=== PATIENT | female | born 1930 | race Caucasian/White ===

== ENCOUNTER → 2018-05-10 | Outpatient (CLI) | payer OTHER ==
[~2018-05-10] MED LIST: ALPHAGAN P10 ML OP; AZOPT OPHTH1 %/10 M1 OP; AZOPT OPHTH1 %/10 M1 OPHTHALMIC; BUTORPHANOLNS2 NASAL; CEFUROXIME250 MG PO; CIPRO250 M1 PO; CIPROFLOXACIN500 M3 PO; COMBIGAN EYE DR10 ML OP; DICLOFENAC SODI75 MG PO; DIFLUCAN200 MG PO; FEMARA2.5 MG PO; FLAGYL500 MG PO; FLEXERIL PO; FOLIC ACID1 MG PO; GLYBURIDE 5 MG T5 M1 PO; HYDROCHLOROTHIA25 M1 PO; HYTRIN 5 M5 MG/1 CA1 PO; LETROZOLE2.5 MG PO; LODINE400 MG PO; LUMIGAN2.5 M1 OP; MACROBID 100 M100 M2 PO; ONDANSETRON HCL4 M2 PO; OXECTA7.5 MG PO; POTASSIUM99 M1 PO; PRINIVIL10 MG PO; PROLOPRIM100 MG PO; PROTONIX40 M1 PO; SIMVASTATIN20 MG PO; TIROSINT100 MCG PO; TRAMADOL 50 MG50 MG PO; TUMS PO; VITAMIN B PO; VITAMIN D1000 UNI1 PO; WOMEN'S DAILY1 EAC3 PO; [UNRECOGNIZED DRUG - OTHER] PO
[2018-05-10 11:40] VITALS: BP 130/55
[2018-05-10 12:45] VITALS: BP 129/56
--- NOTE | 2018-05-10 13:17 | NUR ---
ARRIVED AMBULATORY. MADE SELF COMFORTABLE IN RECLINER. WARM BLANKET GIVEN. IV STARTED WITH OUT DIFFICULTY. INFUSION COMPLETED AND TOLERATED WELL. VSS. DISCHARGE INSTRUCTION REVIEWED. ANGY QUESTIONS OR NEEDS AT DISCHARGE.
== END ==
LOC: M.INFUS 11:17
DX: N18.9 Chronic kidney disease, unspecified (principal); D63.1 Anemia in chronic kidney disease

== ENCOUNTER → 2018-05-17 | Outpatient (CLI) | payer OTHER ==
[2018-05-17 11:10] VITALS: BP 139/62
[2018-05-17 12:35] VITALS: BP 142/66
--- NOTE | 2018-05-17 12:44 | NUR ---
ARRIVED AMBULATORY. MADE SELF COMFORTABLE IN RECLINER. DENIES ADVERSE REACTION TO PRIOR INFUSION OF SAME. INFUSION COMPLETED AND TOLERATED WELL. DENIES NEEDS OR QUESTIONS AT DISCHARGE.
== END ==
LOC: M.INFUS 01:29
DX: N18.9 Chronic kidney disease, unspecified (principal); D63.1 Anemia in chronic kidney disease

== ENCOUNTER → 2018-05-31 | Outpatient (CLI) | payer OTHER ==
[2018-05-31 11:15] VITALS: BP 112/65
--- NOTE | 2018-05-31 13:34 | NUR ---
DENIES ADVERSE REACTION TO PRIOR INFUSION OF SAME. INFUSION COMPLETED AND TOLERATED WELL. DENIES NEEDS OR QUESTIONS AT DISCHARGE.
== END ==
LOC: M.INFUS 01:29
DX: N18.9 Chronic kidney disease, unspecified (principal); D63.1 Anemia in chronic kidney disease

== ENCOUNTER → 2018-06-07 | Outpatient (CLI) | payer OTHER ==
[2018-06-07 11:20] VITALS: BP 122/50
--- NOTE | 2018-06-07 12:52 | NUR ---
ARRIVED AMBULATORY WITH WALKER. MADE SELF COMFORTABLE IN RECLINER. DENIES ADVERSE REACTION TO MULTIPLE INFUSIONS OF SAME. INFUSION COMPLETED AND TOLERATED WELL. DENEIS NEEDS OR QUESTIONS AT DISCHARGE.
== END ==
LOC: M.INFUS 02:03
DX: N18.9 Chronic kidney disease, unspecified (principal); D63.1 Anemia in chronic kidney disease

== ENCOUNTER 2018-10-17 13:21 | Inpatient (IN) | payer OTHER ==
[~2018-10-17] VITALS: Ht 154.9 cm; Wt 78.9 kg
--- NOTE | ~2018-10-17 | OP ---
[address] [address] OPERATIVE REPORT Name: WENDIEALESSIA Zunilda Room: [address] IN M.R.#: [id number] Admission: 10/17/18 Attend Phys: Conchita Soares MD Discharge: 10/25/18 Date of : 34 Report #: [id number] THIS REPORT FOR: //name// CC: Blake Viveros MD DATE OF SERVICE: 10/20/2018 REFERRING PHYSICIANS: Dr. Blake Nazario and Dr. Conchita Soares. PREOPERATIVE DIAGNOSIS: Temporal headaches. POSTOPERATIVE DIAGNOSIS: Temporal headaches, pending final pathology. PROCEDURE: Bilateral temporal artery biopsy. SURGEON: Jose Acosta DO. SUPERVISOR PIPELINE MAINTENANCE: Dr. Dennis Pike. ANESTHESIA: Local with IV sedation. ESTIMATED BLOOD LOSS: Less than 10 mL. COMPLICATIONS: None. DESCRIPTION OF PROCEDURE: After obtaining proper consents and discussing risks and complications with the patient, she was taken to the operating room, laid on the supine position and administered IV sedation. She was then prepped and draped in the usual fashion starting with the left side for a temporal artery biopsy. We did use a Doppler ultrasound to identify the course of the temporal artery and blanc were placed with a marking pen. I then injected the area around these blanc with 1% lidocaine without epinephrine. I then made an approximately 4 cm long incision along the course of the temporal artery. I used needle tip cautery to dissect down through the subcutaneous tissues until I could visualize the artery. Once the artery was identified, it was dissected free. I then isolated proximal and distal ends which were by approximately 2 cm. I used a mosquito clamp to clamp proximally and distally and then divided and removed the 2 cm segment of the temporal artery. I then tied both ends using a 2-0 silk tie. We assured good hemostasis within the wound. We then closed the subcutaneous tissue using 3-0 Vicryl suture and the skin was closed using 4-0 Monocryl subcuticular stitch. Sterile Dermabond was then placed. We then changed the patient's position and reprepped and draped for the right side. Again, Doppler ultrasound was [place] [address] OPERATIVE REPORT Name: WENDIEALESSIA Room: [address]#: [id number] Admission: 10/17/18 Attend Phys: Conchita Soares MD Discharge: 10/25/18 Date of : 32 Report #: [id number] of the temporal artery and blanc were made using a marking pen. I then injected the area around these blanc with 1% lidocaine without epinephrine. I then made a skin incision with a #15 scalpel blade for a length of approximately 4 cm. I then used the needle tip cautery to dissect down to the level of the temporal artery. Once the artery was identified, it was completely dissected free for a length of approximately 2 cm. I then used a mosquito clamp to clamp the proximal and distal ends and then removed a 2 cm segment of artery. The proximal and distal ends were then suture ligated using 2-0 silk suture. We assured good hemostasis within the wound and then closed the subcutaneous tissue using 3-0 Vicryl suture. Skin was closed using 4-0 Monocryl subcuticular stitches. Mastisol, Steri-Strips, sterile OpSite and pressure dressings were placed. The patient was then awakened in the operating room and transported to recovery room in stable condition. Sponge, needle and instrument counts were all correct at the end of the procedure. By: [id number] Acosta DO /nt
[~2018-10-17 13:21] MED LIST changes: +CALCIUM 500 +1 EACH PO; -HYTRIN 5 M5 MG/1 CA1 PO; +TERAZOSIN HCL5 MG PO; -TUMS PO
[2018-10-17 13:36] VITALS: BP 154/70
[2018-10-17] MEDS ORDERED: IRON325 PO (13:40)
[2018-10-17] MEDS ORDERED: MYRBETRIQ25 MG PO (13:43)
[2018-10-17] MEDS ORDERED: LANTUS100 UNIT/M SUBQ (13:44)
[2018-10-17] MEDS ORDERED: PROCRIT3000 UNIT/ SUBQ (13:46)
[2018-10-17 14:10] LABS: INFLUENZA A ANTIGEN None Detected (None Detect); INFLUENZA B ANTIGEN None Detected (None Detect)
[2018-10-17 14:18] LABS: ABSOLUTE BASOPHILS 0.1 thou/uL (0.0-0.2); ABSOLUTE LYMPHOCYTES 2.1 thou/uL (0.8-5.3); ABSOLUTE MONOCYTES 0.8 thou/uL (0.0-1.2); ABSOLUTE NEUTROPHILS 7.7 thou/uL (1.6-8.1); BASOPHILS 1.1 %; EOSINOPHILS 0.3 %; HEMATOCRIT 29.5 % (37.0-47.0); HEMOGLOBIN 9.9 gm/dL (12.0-15.0); LYMPHOCYTES 19.7 %; MCH 30.2 pg (26.0-34.0); MCHC 33.4 g/dL (28.0-37.0); MCV 90.2 fL (80.0-100.0); MONOCYTES 7.4 %; MPV 7.5 fl. (7.2-11.1); NUCLEATED RBCS 0 /100WBC; PLATELET COUNT* 296 thou/uL (150-400); POLYS 71.5 %; RBC 3.27 mil/uL (4.20-5.00); RDW-CV 15.6 % (10.5-14.5); WBC 10.8 thou/uL (4.0-11.0)
[2018-10-17 14:29] LABS: APTT 28.7 Seconds (25.0-31.3)
[2018-10-17 14:53] LABS: ALBUMIN 2.6 g/dL (3.4-5.0); ALKALINE PHOSPHATASE 35 U/L (46-116); ANION GAP 11 mmol/L (7-16); BUN 44 mg/dL (7-18); CALCIUM 8.8 mg/dL (8.5-10.1); CHLORIDE 98 mmol/L (98-107); CO2 23 mmol/L (21-32); CREATININE 2.4 mg/dL (0.6-1.3); GLUCOSE 183 mg/dL (70-99); POTASSIUM 4.7 mmol/L (3.5-5.1); SGOT 10 U/L (15-37); SGPT 13 U/L (30-65); SODIUM 132 mmol/L (136-145); TOTAL BILIRUBIN 0.2 mg/dL (<0.1-1.0); TOTAL PROTEIN 7.3 g/dL (6.4-8.2); TROPONIN-I LEVEL <0.06 ng/mL (<0.06)
[2018-10-17 16:04] LABS: URINE BILIRUBIN NEGATIVE (Negative); URINE BLOOD 2+ (Negative); URINE CLARITY CLOUDY; URINE COLOR STRAW; URINE GLUCOSE-RANDOM NEGATIVE (Negative); URINE KETONES NEGATIVE (Negative); URINE NITRITE-REFLEX NEGATIVE (Negative); URINE PROTEIN 2+ (Negative); URINE UROBILINOGEN 0.2 E.U./dl (0.2-1.0)
[2018-10-17 16:07] LABS: URINE LEUKOCYTES-REFLEX 2+ (Negative)
[2018-10-17 16:10] LABS: SQUAMOUS 0-3 Few /LPF (0-3); URINE WBC-REFLEX >25 Many /HPF (0-5); WBC CLUMPS Few (None Seen)
[2018-10-17 16:11] LABS: BACTERIA-REFLEX >30 Many /HPF (None Seen); MUCUS None Seen strn/LPF (None Seen); URINE RBC 3-10 Few /HPF (0-2)
[2018-10-17 16:12] LABS: CASTS None Seen /LPF (None Seen)
[2018-10-17 16:13] LABS: CRYSTALS None Seen /LPF (None Seen)
[2018-10-17 19:40] VITALS: BP 150/84
[2018-10-17 20:00] VITALS: BP 130/55
[2018-10-18] VITALS: BP 130/64
[2018-10-18 04:00] VITALS: BP 105/57
[2018-10-18 05:17] LABS: HEMATOCRIT 27.7 % (37.0-47.0); HEMOGLOBIN 9.3 gm/dL (12.0-15.0); MCH 30.4 pg (26.0-34.0); MCHC 33.6 g/dL (28.0-37.0); MCV 90.4 fL (80.0-100.0); MPV 7.5 fl. (7.2-11.1); RBC 3.06 mil/uL (4.20-5.00); RDW-CV 15.4 % (10.5-14.5); WBC 8.5 thou/uL (4.0-11.0)
[2018-10-18 05:30] LABS: CHOLESTEROL 139 mg/dL (<200); HDL CHOLESTEROL 36 mg/dL (>40); LDL CHOLESTEROL 74 mg/dL (<100); TC:HDL 3.9 Ratio (Not establshd); TRIGLYCERIDE 149 mg/dL (<150); VLDL 30 mg/dL (<40)
[2018-10-18 05:45] LABS: ALBUMIN 2.4 g/dL (3.4-5.0); CALCIUM 8.7 mg/dL (8.5-10.1); CREATININE 2.1 mg/dL (0.6-1.3); MAGNESIUM 2.1 mg/dL (1.8-2.4); POTASSIUM 4.3 mmol/L (3.5-5.1); TOTAL BILIRUBIN 0.2 mg/dL (<0.1-1.0); TOTAL PROTEIN 6.5 g/dL (6.4-8.2)
[2018-10-18 05:49] LABS: SERUM ASSESSMENT CLEAR
--- NOTE | 2018-10-18 06:10 | NUR ---
PT TO FLOOR APPROX 2215. ASSESSMENT COMPLETE. PT COMFORTABLE. SEE MAR. SEE CHARTING. VITALS WNL. FALL PRECAUTIONS IN PLACE. HOURLY ROUNDING FOR SAFETY.
[2018-10-18 09:02] VITALS: BP 141/61
--- NOTE | 2018-10-18 09:36 | EKG ---
[place] [address] ELECTROCARDIOGRAM REPORT Name: ALESSIA PRESSLEY Room: [place] [address] ADM IN .R.#: [id number] Admission: 10/17/18 Attend Phys: Conchita Soares MD Discharge: Date of : 32 Report #: [id number] THIS REPORT FOR: //name// [facility] ED Test Date: 2018-10-17 Test Time: 14:02:56 Pat Name: ALESSIA PRESSLEY Department: Room: [facility] Gender: F Surgical Services Asst: : 1930 Requested By: Christine Martines Order Number: [id number] MD: Chance Solis Measurements Intervals Arthur Rate: 64 P: 20 AK: 180 QRS: -39 QRSD: 90 T: 22 QT: 382 QTc: 394 Interpretive Statements Sinus rhythm Atrial premature complexes Left axis deviation poor r wave progression Compared to ECG 11/30/2016 09:29:17 Atrial premature complex(es) now present Electronically Signed On 10-18-2018 9:35:56 FIELD APPLICATIONS SPECIALIST by Chance Solis [email or web address] <ELECTRONICALLY SIGNED> By: Chance Solis MD, [facility] 10/18/18 0935 1402 1402 Chance Solis MD, [facility] /EPI
--- NOTE | 2018-10-18 11:01 | NUR ---
ASSUMED CARE OF PT THIS AM AROUND 0715- AC/DC REWINDER IN PLACE ORDERED, TRACING SR WITH PAC'S- UPON ASSESSMENT PT NOTED TO BE RESTING IN BED, DAUGHTER AT SIDE- PT A&O X4, ALEKNAGIK- CONTINENT OF BOWEL AND BLADDER- SBA WITH RW FOR TRANSFERS- DIMINISHED LUNG SOUNDS WITH OCCASSIONAL NON-PRODUCATIVE COUGH NOTED- VSS, O2 SAT 100% ON RA- ABD SOFT/ROUND/NON-TENDER, BS X4 QUADS- BM REPORTED THIS AM- IV NOTED TO RIGHT AC INTACT, IVF INFUSSING PRESCIBED- GOOD PO INTAKE NOTED THIS AM WITH BREAKFAST- BS MONITORED ORDERED- MRI COMPLETED THIS AM PRESCRIBED, RESULTS PENDING AT THIS TIME- REHABD AND OPHTHALMLOAY CONSULTED INTIATED THIS AM- PT DENIES ANY C/O PAIN/DISCOMFORT AT THIS TIME- CALL LIGHT AND PERSONAL BELONGINGS WITH IN REACH- HOURLY ROUNDS IN PLACE R/T SAFETY/NEEDS- ALL NEEDS MET AT THIS TIME-WCTM
[2018-10-18 12:00] VITALS: BP 123/45
--- NOTE | 2018-10-18 13:07 | NUR ---
MET WITH PT AND DTR/DEVENDRA WHO IS DPOA TO DISCUSS HOME SITUATION/DC PLANNING. PT LIVES ALONE IN HER HOME, DEVENDRA LIVES 'RIGHT BEHIND' HER IN HOUSE. PT IS INDEPENDENT WITH HER ADLS, USES WALKER. DEVENDRA COOKS, TAKES MEALS TO HER, DOES CLEANING AND LAUNDRY. DEVENDRA STATED PT HAS BEEN MANAGING WELL AT HOME. PT HAS WALKER, GRAB BARS, SHOWER BENCH AND CANE. SHE HAS HAD HH WITH [facility] IN THE PAST. PT IS OPEN TO HH AGAIN BUT WANTS TO WAIT TILL DC TO DECIDE. AWARE SHE'LL HAVE TO USE A DIFFERENT HH [facility] IS NOT IN HER INSURANCE NETWORK. PT ADMITETD WITH STROKE, TO HAVE OPTHO CONSULT. PT PLANS TO RETURM HOME AT DC. WILL FOLLOW
--- NOTE | 2018-10-18 13:30 | NUR ---
RAIL GRINDER: MET WITH PATIENT AND FAMILY TODAY. REVIEWED STROKE PROGRAM, ANSWERED QUESTIONS. AGREED TO CONSULT WITH [facility] FOR STROKE NAVIGATOR AT HOSPITAL DISCHARGE.
--- NOTE | 2018-10-18 13:55 | 2DMMODE ---
[place] [address] 2 D/M-MODE ECHOCARDIOGRAM Name: ALESSIA PRESSLEY Room: [facility]-1 ADM IN [facility]#: [id number] Admission: 10/17/18 Attend Phys: Conchita Soares, Discharge: Date of : 34 Date of Service: 10/18/18 1354 Report #: [id number] THIS REPORT FOR: //name// APPROVED REPORT Study performed: 10/18/2018 10:40:55 EXAM: Comprehensive 2D, Doppler, and color-flow Echocardiogram Patient Location: In-Patient Room #: 227 Status: routine BSA: 1.65 HR: 88 bpm BP: 105/57 mmHg Rhythm: NSR Other Information Study Quality: Good Indications CVA/TIA Echo Enhancing Agent Indication: Rule out Shunt Agent(s) / Amount(s) Used: Agitated Saline 10 cc 2D Dimensions IVSd: 12.28 (7-11mm) LVOT Diam: 21.20 (18-24mm) LVDd: 51.61 mm PWd: 11.56 (7-11mm) Ascending Ao: 34.15 (22-36mm) LVDs: 35.39 (25-40mm) Aortic Root: 34.15 mm Volumes Left Atrial Volume (Systole) LA ESV Index: 43.90 mL/m2 Aortic Valve AoV Peak Myke.: 1.34 m/s AO Peak Gr.: 7.16 mmHg LVOT Max P.00 mmHg AO Mean Gr.: 4.29 mmHg LVOT Mean P.42 mmHg LVOT Max V: 0.87 m/s AO V2 VTI: 32.44 cm LVOT Mean V: 0.54 m/s MIMI (VTI): 2.24 cm2 LVOT V1 VTI: 20.56 [place] [address] 2 D/M-MODE ECHOCARDIOGRAM Name: ALESSIA PRESSLEY Room: [address] IN .R.#: [id number] Admission: 10/17/18 Attend Phys: Conchita Soares, Discharge: Date of : 34 Date of Service: 10/18/18 1354 Report #: [id number] Mitral Valve E/A Ratio: 0.73 MV Decel. Time: 217.55 ms MV E Max Myke.: 0.86 m/s MV PHT: 63.09 ms MVA (PHT): 3.49 cm2 TDI E/Lateral E': 10.75 E/Medial E': 12.29 Medial E' Myke.: 0.07 m/s Lateral E' Myke.: 0.08 m/s Pulmonary Valve PV Peak Myke.: 1.00 m/s PV Peak Gr.: 3.97 mmHg Left Ventricle The left ventricle is normal size. There is normal LV segmental wall motion. There is normal left ventricular wall thickness. Left ventricular systolic function is normal. The left ventricular ejection fraction is within the normal range. LVEF is 55-60%. Grade I - abnormal relaxation pattern. Right Ventricle The right ventricle is normal size. The right ventricular systolic function is normal. Atria Left atrium is moderately dilated. Interatrial septum is intact without evidence of ASD or PFO. The right atrium size is normal. Aortic Valve The Aortic valve is sclerotic. Mild aortic regurgitation. There is no aortic valvular stenosis. Mitral Valve The mitral valve is normal in structure. Mild mitral regurgitation. No evidence of mitral valve stenosis. Tricuspid Valve The tricuspid valve is normal in structure. Trace tricuspid regurgitation. Pulmonic Valve Pulmonic valve is not well visualized. There is no pulmonic [place] [address] 2 D/M-MODE ECHOCARDIOGRAM Name: WENDIEALESSIA Room: [address] IN [facility]#: [id number] Admission: 10/17/18 Attend Phys: Conchita Soares, Discharge: Date of : 32 Date of Service: 10/18/18 1354 Report #: [id number] Great Vessels The aortic root is normal in size. IVC is normal in size and collapses >50% with inspiration. Pericardium There is no pericardial effusion. <Conclusion> LVEF is 55-60%. Left atrium is moderately dilated. The Aortic valve is sclerotic. Interatrial septum is intact without evidence of ASD or PFO. <ELECTRONICALLY SIGNED> By: Chance Solis MD, [facility] 10/18/18 1354 1354 1354 Chance Solis MD, [facility]ACC /INF
[2018-10-18 16:00] VITALS: BP 134/75
--- NOTE | 2018-10-18 17:02 | NUR ---
PT CURRENTLY RESTING IN BED SIDE CHAIR- FAMILY AT SIDE VISITING- CARDAIC MONITOR IN PLACE AND TRACING SR WITH PVC'S- IV TO RIGHT AC INTACT, IVF INFUSSING PRESCIBED- SURGERY CONSULTED THIS SHIFT R/T TEMPORAL ARTERY BIOPSY NEEDED- PREDNISONE 40MG DAILY STARTED THIS SHIFT WITH 1ST DOSE GIVEN PRESCIBE- BS AT NOON NOTED TO BE 176, SSI LOW DOSE INSULIN INITIATED THIS SHIFT- ECHO COMPLETED THIS SHIFT WITH LVEF NOTED AT 55-60%- CALL LIGHT AND PERSONAL BELONGINGS WITH IN REACH- HOURLY ROUNDS IN PLACE R/T SAFETY/NEEDS- ALL NEEDS MET AT THIS TIME-WCTM
[2018-10-18 19:50] VITALS: BP 134/64
[2018-10-18 23:07] LABS: GLYCOHEMOGLOBIN (HGB A1C) 7.4 % (4.8-5.6)
[2018-10-19] VITALS: BP 146/47
[2018-10-19 04:00] VITALS: BP 126/59
--- NOTE | 2018-10-19 05:29 | NUR ---
VITALS WNL. SEE MAR. SEE CHARTING. FALL PRECATUIONS IN PLACE. HOURLY ROUNDING FOR SAFETY.
[2018-10-19 05:46] LABS: HEMATOCRIT 26.4 % (37.0-47.0); HEMOGLOBIN 8.8 gm/dL (12.0-15.0); MCH 30.3 pg (26.0-34.0); MCHC 33.4 g/dL (28.0-37.0); MCV 90.7 fL (80.0-100.0); MPV 7.7 fl. (7.2-11.1); RBC 2.91 mil/uL (4.20-5.00); RDW-CV 15.6 % (10.5-14.5)
[2018-10-19 05:57] LABS: CALCIUM 8.6 mg/dL (8.5-10.1); POTASSIUM 4.9 mmol/L (3.5-5.1)
[2018-10-19 07:59] VITALS: BP 142/66
--- NOTE | 2018-10-19 09:00 | NUR ---
ASSUMED CARE OF PT THIS AM AROUND 0715- SHEET METAL ROOFER IN PLACE ORDERED, TRACING SR WITH PAC'S- UPON ASSESSMENT PT NOTED TO BE RESTING IN BED, DAUGHTER AT SIDE- PT A&O X4- CONTINENT OF BOWEL AND BLADDER- SBA WITH TRANSFERS, USING RW FOR TRANSFERS-DIMINISHED LUNG SOUNDS NOTED- OCCASSIONAL DRY COUGH NOTED- VSS, O2 SAT 995 ON RA- ABD SOFT/ROUND/NON-TENDER, BS X4 QUADS- LAST BM REPORTED 10/18/18- IV NOTED TO RIGHT AC INTACT, IVF INFUSSING PRESCIBED- IV ABT GIVEN THIS AM PRESCIBED, NO ADVERSE REACTIONS TO NOTE- GOOD PO INTAKE NOTED THIS AM WITH BREAKFAST- BS MONITORED ORDERED, SSI PRESCIBED- PT DENIES ANY C/O PAIN/DISCOMFORT THIS AM- CALL LIGHT AND PERSONAL BELONGINGS WITH IN REACH- HOURLY ROUNDS IN PLACE R/T SAFETY/NEEDS- ALL NEEDS MET AT THIS TIME-WCTM
[2018-10-19] MEDS ORDERED: PROCRIT10000 UNIT SUBQ (09:43)
[2018-10-19 11:45] VITALS: BP 160/73
--- NOTE | 2018-10-19 12:12 | NUR ---
REHAB CONSULT RECEIVED AND ACKNOWLEDGED BY SANDER MACHINE AND DR FRAUSTO. PT ADMITTED WITH CVA. OT AND PT EVALS HAVE BEEN COMPLETED. CURRENTLY PT IS DEMONSTRATING LEVEL OF PERFORMANCE THAT INDICATES ABILITY TO RETURN HOME WITH HOME HEALTH. NO INPATIENT REHAB NECESSARY AT THIS TIME. THANK YOU
--- NOTE | 2018-10-19 16:26 | NUR ---
PT CURRENTLY RESTING IN BED, DAUGHTER AT SIDE- DECATIZER IN PLACE ORDERED, TRACING SR- IV TO RIGHT AC INTACT, IVF INFUSSING PRESCIBED- GS HERE TO ASSESS WITH PLANS FOR TEMPORAL ARTERY BIOPSY 10/20/18 AT 1430, UNLESS ABLE TO GET TO EARLIER PER SURGERY- PT TO BE NPO POST MIDNIGHT- PT UP TO BED SIDE CHAIR WITH MEALS THIS SHIFT- WORKING WITH THERAPIES PRESCIBED, TOLERATING WELL- GOOD PO INTAKE NOTED THIS SHIFT WITH MEALS- BS MONITORED, SSI PRESCRIBED- ALL NEEDS MET AT THIS TIME-WCTM
[2018-10-19 16:34] VITALS: BP 130/48
[2018-10-19 20:45] VITALS: BP 128/56
[2018-10-20] VITALS (7 sets, daily range): BP systolic 130–156; BP diastolic 56–74
--- NOTE | 2018-10-20 05:51 | NUR ---
PT IS ABLE TO COMMUNICATE HER NEEDS TO STAFF EFFECTIVELY. CURRENT PAIN MEDICATION REGIMEN HAS BEEN ADEQUATE FOR CONTROLLING HER PAIN UP TO THIS TIME. SHE HAS BEEN NPO SINCE MIDNIGHT FOR A SCHEDULED BIOPSY PROCEDURE WITH SURGERY LATER TODAY.
--- NOTE | 2018-10-20 19:36 | NUR ---
assumed pt care at 0730, full assesment done as charted. pt a/o x4, denies pain this shift, pts VSS, SR/PVC's on the monitor. pt npo this am for scheduled biopsy today. ACCU checks done, refer to charting. pt up with SBA and walker, took several walks in [place] today. incontinant of urine, wears briefs, FAll precautions in place, pt uses call light approprilaty. Returned from surgery at approx 1545, denies pain, VSS, SR on the monitor. pt able to eat dinner, up to bathroom with no complaints. daughter remains with pt this evening. report given to Lv MASCORRO.
[2018-10-21] VITALS (10 sets, daily range): BP systolic 102–157; BP diastolic 46–72
--- NOTE | 2018-10-21 08:15 | NUR ---
PT IS ABLE TO COMMUNICATE HER NEEDS TO STAFF WITH ONLY MINOR DIFFICULTY; SHE IS [id number]. SHE HAS DENIED THE NEED FOR PAIN MEDICATION UP TO THIS TIME. BILATERAL SURGICAL INCISIONS ABOVE HER EARS ARE INTACT AND NEURO PSYCH SALES SPECIALIST. POSSIBLE D/C TODAY.
--- NOTE | 2018-10-21 16:28 | EKG ---
[place] [address] ELECTROCARDIOGRAM REPORT Name: ALESSIA PRESSLEY Room: [address] ADM IN M.R.#: [id number] Admission: 10/17/18 Attend Phys: Conchita Soares MD Discharge: Date of : 34 Report #: [id number] THIS REPORT FOR: //name// [facility] Test Date: 2018-10-21 Test Time: 13:08:39 Pat Name: ALESSIA PRESSLEY Department: Room: [address] Gender: F Electrician Technician: Prosper WATSON : 1930 Requested By: Kvng Stanley Order Number: [id number] Reading MD: Chance Solis Measurements Intervals Lohman Rate: 132 P: IN: QRS: -41 QRSD: 76 T: 52 QT: 297 QTc: 440 Interpretive Statements Atrial fibrillation with rapid V-rate Ventricular premature complex Left anterior fascicular block Compared to ECG 10/17/2018 14:02:56 Ventricular premature complex(es) now present Sinus rhythm no longer present Electronically Signed On 10-21-2018 16:27:53 MIDDLE SCHOOL PROFESSIONAL by Chance Solis [email or web address] <ELECTRONICALLY SIGNED> By: Chance Solis MD, [facility] 10/21/18 1627 1308 1308 Chance Solis MD, [facility] /EPI
--- NOTE | 2018-10-21 18:45 | NUR ---
ASSUMED PT CARE AT 0730, FULL ASSESMENT DONE CHARTED, PT A/O X4, STATES SHE WANTS TO GO HOME TODAY. VSS, SR ON THE MONITOR, BIGEMINY AT TIMES. PTS DAUGHTER AT BEDSIDE. AT APPROX 1300 PTS HR INCREASED, EKG DONE, PT IN AFIB RVR. NOTIFIED, CARDIOLOGY CONSULTED, CARDIZEM GTT STARTED. PT AND DAUGHTER EDUCATED ON TESTS AND NEW MEDS, BOTH VERBALIZED UNDERSTANDING, BOTH STATE THEY ARE ANXOIUS. MORE EDUCATION GIVEN. PT REMAINS ON CARDIZEM GTT, TITRATED PER PROTOCOL. PT UP WITH ASSIST, FALL PRECAUTIONS IN PLACE, PT PLACED ON ISOLATION FOR ECOI OF THE URINE.
[2018-10-21 23:03] LABS: HEMATOCRIT 25.9 % (37.0-47.0); HEMOGLOBIN 8.5 gm/dL (12.0-15.0); MCH 30.4 pg (26.0-34.0); MCHC 32.8 g/dL (28.0-37.0); MCV 92.6 fL (80.0-100.0); MPV 7.5 fl. (7.2-11.1); RBC 2.8 mil/uL (4.20-5.00); RDW-CV 15.8 % (10.5-14.5); WBC 8.7 thou/uL (4.0-11.0)
[2018-10-21 23:14] LABS: ALBUMIN 2.3 g/dL (3.4-5.0); CALCIUM 7.9 mg/dL (8.5-10.1); TOTAL BILIRUBIN 0.2 mg/dL (<0.1-1.0); TOTAL PROTEIN 6.1 g/dL (6.4-8.2)
[2018-10-22] VITALS: BP 126/57
[2018-10-22 04:00] VITALS: BP 147/59
--- NOTE | 2018-10-22 04:37 | NUR ---
PATIENT PARTIALLY PROGRESSING TOWARDS GOALS: REGIONAL PROGRAM MANAGER TRACING SA/SR, RATE WNL. PATIENT TITRATED OFF CARDIZEM GTT DUE TO DECREASING HR AND BP. PATIENT DENIES PAIN AND DISCOMFORT. TEMPORAL INCISIONS REMAIN C/D/I WITH DERMABOND. CALL LIGHT WITHIN REACH.
--- NOTE | 2018-10-22 07:54 | CON ---
[address] [address] CONSULTATION Name: ALESSIA PRESSLEY Room: [address] IN M.R.#: [id number] Admission: 10/17/18 Attend Phys: Conchita Soares MD Discharge: Date of : 34 Report #: [id number] THIS REPORT FOR: //name// CC: Blake Soares DATE OF SERVICE: 10/21/2018 ATTENDING PHYSICIAN: Dr. Stanley. REASON FOR EVALUATION: Complicated urinary tract infection and multiple resistant Escherichia coli. HISTORY OF PRESENT ILLNESS: Chart reviewed, the patient examined. This is an 88-year-old woman who was admitted through the Emergency Room with complaints of right-sided scalp and eye pain with some visual disturbances. She was evaluated, including imaging studies which suggest a right posterior cerebral artery occiput stroke; however, the eye pain was somewhat atypical, as a result, did undergo bilateral temporal lobe biopsies to exclude temporal arteritis, results are pending. She had been started empirically on ceftriaxone. Urine culture was collected, now with growth of Escherichia coli. Urinalysis did show greater than 25 white cells, greater than 30 bacteria, consistent with infection. At this point, she denies specific symptoms related to her genitourinary tract, in fact denies any pulmonary or gastrointestinal related complaints, states she generally feels pretty well. ALLERGIES: PENICILLINS, happened 2-3 decades ago, broke out a RASH; history of HYPERSENSITIVITY to SULFA as well. CURRENT MEDICATIONS: Included apixaban, diltiazem, glipizide, meropenem, prednisone, mirabegron, folic acid, multivitamin, cholecalciferol, lisinopril, aspirin, levothyroxine, pantoprazole, atorvastatin, insulin sliding scale. PAST MEDICAL HISTORY: History of chronic back pain; urinary tract infections, dating back to 30 years; history of diverticulitis; history of breast cancer in 2007 with lumpectomy, chemo and radiation; tonsillectomy; appendectomy; and iron deficiency anemia. SOCIAL HISTORY: Nonsmoker, no ethanol. FAMILY HISTORY: Noncontributory. REVIEW OF SYSTEMS: Ten-point review of systems otherwise unremarkable with the exception noted above in history of present illness. PHYSICAL EXAMINATION: [place] [address] CONSULTATION Name: ALESSIA PRESSLEY Zunilda Room: [address]#: [id number] Admission: 10/17/18 Attend Phys: Conchita Soares MD Discharge: Date of : 32 Report #: [id number] GENERAL: She appears somewhat malnourished. She is chronically ill-appearing, is very pleasant, cooperative, in mild distress. VITAL SIGNS: Temperature 98, pulse 57, respirations 16, blood pressure 102/62. SKIN: Warm, dry, no rashes. HEENT: Neck is supple. She has the site of the temporal artery biopsies noted. Extraocular muscles intact. LUNGS: Diminished breath sounds. HEART: Regular. Borderline bradycardic. I do not appreciate murmur. ABDOMEN: Soft, nontender, nondistended. EXTREMITIES: Have some edema. GENITOURINARY AND RECTAL: Deferred. LABORATORY DATA: Urine culture collected on with growth of Escherichia coli greater than 10 to the fifth; is resistant to ampicillin, second and third generation cephalosporins, quinolones; is susceptible to aminoglycosides, carbapenems, piperacillin/tazobactam; resistant in vitro to tetracycline and sulfa. Electrolytes: Sodium 135, potassium 4.9, chloride 105, bicarbonate is 20, BUN and creatinine 38 and 2.0, anion gap of 10, estimated GFR of 24. CBC: White count of 7.0, H and H 8.8 and 26.4, platelets of 277. Sed rate of 116. MRI of the head showed findings compatible with large right occipital lobe subacute ischemic infarct. ASSESSMENT AND PLAN: Complicated urinary tract infection in a patient that has had a recent occipital stroke, also concerned about possibility of temporal arteritis in this setting, the pathology is pending. Did discuss with Dr. Huynh, the antibiotics have been switched now to meropenem, adjusted for renal insufficiency. She has been on corticosteroids, I think that is reasonable pending the results of pathology. At this point, she is asymptomatic. We will repeat the urinalysis 24-48 hours to see if indeed we clear some of the pyuria. Thank you, we will follow. <ELECTRONICALLY SIGNED> By: Junior Madera MD 10/22/18 0754 1536 [id number] Madera MD /nt
[2018-10-22 08:00] VITALS: BP 152/66
--- NOTE | 2018-10-22 08:48 | CON ---
[address] [address] CONSULTATION Name: WENDIEALESSIA J Room: [address] IN M.R.#: [id number] Admission: 10/17/18 Attend Phys: Conchita Soares MD Discharge: Date of : 32 Report #: [id number] THIS REPORT FOR: //name// CC: Blake Castillo INDICATION: New onset atrial fibrillation. HISTORY OF PRESENT ILLNESS: The patient is a very pleasant 88-year-old white female who was admitted to the hospital with right eye pain and headache. She has had a temporal artery biopsy bilaterally to evaluate for possible arteritis. A CT scan apparently indicated an ischemic stroke. She has macular degeneration as well as possibly a left field deficit. At approximately noon today, the patient went into atrial fibrillation with rapid ventricular response. She denies any prior history of atrial fibrillation. The only symptom she has is feeling of nervousness or as if she has been somewhat active. She is not having chest pain. She is without other cardiac complaint. She has no prior significant cardiac history. PAST MEDICAL HISTORY: 1. Stage 3 chronic renal insufficiency. 2. Iron deficiency anemia. 3. CVA. 4. Folate deficiency. 5. Hyponatremia. 6. History of UTI. 7. Hypothyroidism. 8. History of breast cancer, status post lumpectomy, chemotherapy and radiation in 2007. 9. Bilateral lens replacements. 10. Tonsillectomy. 11. Bunionectomy. 12. Diverticulitis. 13. Herniated disk surgery. 14. Chronic back pain. 15. Appendectomy. 16. Rotator cuff surgery. 17. Bilateral temporal artery biopsy. SOCIAL HISTORY: The patient is a lifelong nonsmoker. She does not drink alcohol. FAMILY HISTORY: Noncontributory. ALLERGIES: PENICILLIN [place] [address] CONSULTATION Name: PRESSLEYALESSIA RUBIN Room: [address] IN [facility]#: [id number] Admission: 10/17/18 Attend Phys: Conchita Soares MD Discharge: Date of : 32 Report #: [id number] HOME MEDICATIONS: Levothyroxine 100 mcg daily, vitamin D 1000 units daily, potassium 99 mg daily, timolol or Combigan eyedrops b.i.d., Women's daily formula 1 tablet daily, terazosin 5 mg at bedtime, calcium with D supplement b.i.d., iron sulfate 325 mg b.i.d., Myrbetriq 25 mg daily, insulin Lantus 10 units at bedtime, epoetin 3000 units q. 2 months, lisinopril 10 mg daily, Lumigan eyedrops 1 drop at bedtime, Azopt eye drops t.i.d. PHYSICAL EXAMINATION: VITAL SIGNS: Blood pressure 102/62, pulse presently in the 140s. TELEMETRY: Shows atrial flutter. LABORATORY DATA: Reviewed. Sodium 135, potassium 4.9, chloride 105, bicarbonate 20, BUN 38, creatinine 2.0. Serum glucose 142. EGFR 24. Troponin less than 0.06. Total cholesterol 139, triglycerides 149, HDL 36, LDL 74. Coags within normal limits. White blood cell count 7.0; hemoglobin 8.8; MCV 90.7; platelet count 277,000. IMAGING: CT of the head shows a right occipital stroke. Chest x-ray shows no acute cardiopulmonary abnormalities. Carotid MRA shows normal arteries bilaterally. IMPRESSION AND RECOMMENDATIONS: 1. New onset atrial fibrillation with rapid ventricular response rate. The patient is on a diltiazem drip. We will add flecainide with a 300 mg bolus in an effort to chemically convert to sinus rhythm. Continue diltiazem drip at this time. Start Eliquis 2.5 mg twice daily. 2. Recent stroke, etiology not clear. Cardiac emboli possible with new onset atrial fibrillation now. We will anticoagulate. <ELECTRONICALLY SIGNED> By: Sky Ibarra MD, FACC 10/22/18 0848 [id number] Ibarra MD, FACC /nt
--- NOTE | 2018-10-22 10:43 | NUR ---
FOUR SLIDE OPERATOR: MET WITH PATIENT WITH DAUGHTER IN ROOM. PATIENT NOT REPORTING ADDITIONAL EYE PROBLEMS. DOES HAVE NEW ONSET ATRIAL FIB, IS FOLLOWED BY CARDIOLOGY.
[2018-10-22 11:49] VITALS: BP 140/68
--- NOTE | 2018-10-22 13:47 | CON ---
[address] [address] CONSULTATION Name: PRESSLEYALESSIA J Room: [address] IN M.R.#: [id number] Admission: 10/17/18 Attend Phys: Conchita Soares MD Discharge: Date of : 32 Report #: [id number] THIS REPORT FOR: //name// CC: Blake Soares DATE OF SERVICE: 10/18/2018 HISTORY OF PRESENT ILLNESS: This is an 88-year-old female patient who was evaluated by me for visual disturbances and headache. The patient was evaluated with the daughter. She was actually complaining of right eye pain as well as right-sided headache. She has baseline visual disturbances and it became worse. This started on Thursday. She does have a history of glaucoma. I talked to Dr. Soares and as I understand, they checked the pressure in her eye and as I understand from Dr. Soares it was okay. Her pain has fluctuated. Her vision has fluctuated for a long time. In fact, she has been referred to some specialist for surgery on her eye for something related to macular degeneration and she decided not to have surgery at that time. REVIEW OF SYSTEMS: Indicate that CT scan was done that showed a possible stroke in the occipital area. Her MRI is pending. I reviewed her record. At one time, her sed rate was very high and I ordered a repeat sed rate. She has a history of rotator cuff, appendectomy, chronic back pain, herniated disks, UTI, diverticulitis, lumpectomy, chemo and radiation, bilateral lens replacement, tonsillectomy, anemia. She is not complaining of any ear, cardiac, respiratory, GI, , musculoskeletal, constitutional, dermatological, hematological, psychiatric, throat, allergic symptom associated with present symptomatology. PAST MEDICAL HISTORY: Negative for any stroke, but has visual problem in the baseline. FAMILY HISTORY: Negative for any early age stroke. SOCIAL HISTORY: She does not smoke. PHYSICAL EXAMINATION: NEUROLOGIC: Indicates she is alert. She is responsive. She can follow simple commands. Her speech, concentration, fund of knowledge and memory appeared to be at her baseline. She does have pretty significant visual problems on both eyes. I do not know how much is new and how much is old. Presently, she is not complaining of much pain in the eye. Strength, sensation, reflexes, tone is symmetrical. There is no cerebellar sign. EXTREMITIES: Pulses are somewhat difficult to feel, but there is no edema, cyanosis or jaundice. CARDIAC: Unremarkable. RESPIRATORY: No respiratory difficulty [place] [address] CONSULTATION Name: WENDIEALESSIA J Room: [address] IN M.R.#: [id number] Admission: 10/17/18 Attend Phys: Conchita Soares MD Discharge: Date of : 32 Report #: [id number] NECK: No thyroid mass was noticed. HEENT: Her hearing is adequate, but vision is markedly impaired. VITAL SIGNS: Blood pressure is 141/61, respiration is 20, pulse is 83, temperature is 97.8. LABORATORY DATA: Indicates anemia with hemoglobin of 9.3. Her last GFR was only 22. IMPRESSION: I am concern with this patient because her visual problem can be explained by occipital lobe stroke, but pain in the eye is not explained by that. For that, she needs extensive workup. The first thing she needs is an ophthalmology examination. She also needs a rheumatological evaluation because the last sed rate was high to exclude the possibility of temporal arteritis. RECOMMENDATION: I discussed with the family and discussed with Dr. Soares. We do not have an dryer and washer mechanic to come here on a regular basis. I think ophthalmology examination and a rheumatological evaluation is very important in this patient. Neither of that facility is available. I do not think we will be able to transfer this patient and anybody will accept this patient. Once her MRI is available and if it does not show any unusual finding, I will suggest we get an ophthalmology and rheumatology consult as soon as we can and preferably today. Even if that requires discharging her, we can discharge her, get those consultations done and I will be happy to see her tomorrow morning in my office. I discussed all of it with Dr. Soares and discussed with the family and we should work on getting her an appointment with an dryer and washer mechanic today and tug captain as soon as we can get in. <ELECTRONICALLY SIGNED> By: Vinay Huynh MD 10/22/18 1347 1038 2216Vinay Huynh MD /nt
[2018-10-22 15:30] LABS: URINE BILIRUBIN NEGATIVE (Negative); URINE BLOOD 3+ (Negative); URINE CLARITY CLOUDY; URINE COLOR STRAW; URINE GLUCOSE-RANDOM TRACE (Negative); URINE KETONES NEGATIVE (Negative); URINE NITRITE-REFLEX NEGATIVE (Negative); URINE PROTEIN TRACE (Negative); URINE UROBILINOGEN 0.2 E.U./dl (0.2-1.0)
[2018-10-22 15:34] LABS: URINE LEUKOCYTES-REFLEX 3+ (Negative)
[2018-10-22 15:40] LABS: CASTS None Seen /LPF (None Seen); CRYSTALS None Seen /LPF (None Seen); SQUAMOUS NONE SEEN /LPF (0-3); URINE WBC-REFLEX >25 Many /HPF (0-5)
[2018-10-22 15:41] LABS: BACTERIA-REFLEX 1-9 Few /HPF (None Seen)
[2018-10-22 16:15] VITALS: BP 172/83
--- NOTE | 2018-10-22 19:54 | NUR ---
assumed pt care at 0730, full assesment done as charted, pt a/o x4, denies pain, VSS, sr on the monitor pt had episode of soa this afternoon, pt on ra, sats 97%, lungs slightly wheezy, dr notified, orders recieved. pt reports relief after breathing tx. pt remains in isolation, fall precautions in place, daughter at bedside, Report terri Coe RN.
[2018-10-22 20:00] VITALS: BP 139/58
[2018-10-23] VITALS (7 sets, daily range): BP systolic 137–163; BP diastolic 56–66
--- NOTE | 2018-10-23 04:50 | NUR ---
ASSUMED CARE OF PT AFTER REPORT AT 1930. PT A&OX4. VSS. PHYSICAL ASSESSMENT COMPLETED AND CHARTED. PT ON RA WITH 99% O2 SAT. PT TRACING SR ON TELE. PT UP STANDBY TO RESTROOM. DENIES ANY PAIN OR DISCOMFORT. PT RESTED WELL ON BED. HOURLY ROUNDING OBSERVED. CALL LIGHT WITHIN REACH. FALL PRECAUTIONS IN PLACE.
--- NOTE | 2018-10-23 13:45 | CON ---
[address] [address] CONSULTATION Name: ALESSIA PRESSLEY Room: [address] IN M.R.#: [id number] Admission: 10/17/18 Attend Phys: Conchita Soares MD Discharge: Date of : 32 Report #: [id number] THIS REPORT FOR: //name// CC: Blake Soares TYPE OF REPORT: Neurology consultation. HISTORY OF PRESENT ILLNESS: The patient is an 88-year-old female who was DICTATION ENDS ABRUPTLY HERE. <ELECTRONICALLY SIGNED> By: Prudence Bishop DO 10/23/18 1345 1242 0025Prudence Bishop DO /nt
--- NOTE | 2018-10-23 15:43 | NUR ---
PT CARE ASSUMED AFTER REPORT. ASSESSMENT COMPLETE. SR ON MONITOR. PT A/O. NEW IV INSERTED AFTER PREVIOUS ONE WAS LEAKING. IVF INFUSING. DENIES PAIN. PT WITH BLURRED VISION. PT DAUGHTER STAES THAT IS NOT NEW. NO NEW STROKE SIGNS REPORTED OR OBSERVED. PT ON SPECIAL CONTACT PRECAUTIONS. FAMILY AT BEDSIDE. PROGRESSING TOWARDS GOALS.
[2018-10-24] VITALS: BP 128/81; BP 139/52
[2018-10-24 05:00] VITALS: BP 130/56
--- NOTE | 2018-10-24 05:59 | NUR ---
ASSUMED CARE OF PT AFTER REPORT AT 1930. PT A&OX4. VSS. PHYSICAL ASSESSMENT COMPLETED AND CHARTED. PT ON RA. PT TRACING SR/1ST DEG/AFIB ON TELE. PT UP STANDBY TO RESTROOM. PT DENIES ANY PAIN OR DISCOMFORT. MRSA SWAB SENT TO LAB.PT RESTED WELL ON BED. CALL LIGHT WITHIN REACH.
--- NOTE | 2018-10-24 07:15 | NUR ---
ASSUMED CARE OF PT ASSESSED AND DOCUMENTED. PT IS ON CARDIAC MONITER TRACING AFIB HR 120. PT IS A&O WITH NO C/O PAIN. VSS WNL. PT IS AFEBRILE. SHE IS ON FALL PRECAUTIONS PER FACILITY PROTOCOL. SHE REMAINS ON ISO FOR ECOLI IN THE URINE. MRSA TEST PENDING. PT IS ON ROOM AIR.DAUGHTER IS AT BEDSIDE. PT HAS A LIMB ALERT.WM.
[2018-10-24 08:00] VITALS: BP 135/73
[2018-10-24 11:58] VITALS: BP 126/65
--- NOTE | 2018-10-24 14:11 | EKG ---
[place] [address] ELECTROCARDIOGRAM REPORT Name: ALESSIA PRESSLEY Room: [address] ADM IN M.R.#: [id number] Admission: 10/17/18 Attend Phys: Conchita Soares MD Discharge: Date of : 32 Report #: [id number] THIS REPORT FOR: //name// [facility] Test Date: 2018-10-24 Test Time: 05:00:13 Pat Name: ALESSIA PRESSLEY Department: Room: [address] Gender: F Milk Pasteurizer: : 1930 Requested By: Conchita Soares Order Number: [id number] Reading MD: Avila Jackson Measurements Intervals [place] Rate: 92 P: OK: QRS: -38 QRSD: 92 T: 26 QT: 378 QTc: 468 Interpretive Statements Atrial fibrillation Left axis deviation Low voltage, precordial leads Abnormal R-wave progression, late transition Compared to ECG 10/21/2018 13:08:39 Left-axis deviation now present Low QRS voltage now present Ventricular premature complex(es) no longer present Left anterior fascicular block no longer present Electronically Signed On 10-24-2018 14:10:53 DIGITAL MARKETING PROJECT MANAGER by Avila Jackson [email or web address] <ELECTRONICALLY SIGNED> By: Avila Jackson MD, [facility] 10/24/18 1410 0500 0500 Avila Jackson MD, [facility] /EPI
[2018-10-24 16:45] VITALS: BP 116/64
[2018-10-24 20:00] VITALS: BP 129/56
[2018-10-25] VITALS: BP 118/57
[2018-10-25 04:00] VITALS: BP 120/64
--- NOTE | 2018-10-25 05:22 | NUR ---
ASSUMED CARE OF PT AT 1930. PT A&OX4. VSS. PHYSICAL ASSESSMENT COMPLETED AND CHARTED. PT ON RA WITH 100% O2 SAT. PT TRACING AFIB ON TELE. PT UPSTANDBY TO RESTROOM. PT DENIES ANY PAIN OR DISCOMFORT. MAINTAINED ON ISOLATION PRECAUTION. MAGNESIUM 1.6. ELECTROLYTE PROTOCOL IN PLACE. PT RESTED WELL ON BED. CALL LIGHT WITHIN REACH.
[2018-10-25 08:00] VITALS: BP 129/61
--- NOTE | 2018-10-25 08:39 | NUR ---
RECEIVED REPORT FROM FRANKIE AND ASSUMED CARE OF PT @ 6152.PT IS A/O X4,VSS,TRACING AFIB ON THE MONITOR.IV PATENT AND SALINE LOCKED.ISOLATION MAINTAINED.PT IS CALM AND COOPERATIVE WITH NO C/O PAIN AT TIME OF ASSESSMENT.PT LEFT RESTING IN BED WITH CALL LIGHT AND FALL PRECAUTIONS IN PLACE. FAMILY AT BEDSIDE. WILL CONTINUE TO MONITOR.
--- NOTE | 2018-10-25 11:18 | NUR ---
CONTINUE TO FOLLOW, MET WITH PT AND NIECE. PT STATES SHE IS FEELING IMPROVED AND HOPES TO GO HOME SOON. DTR AND NIECE STILL PLAN TO ASSIST PT NEEDED AT HOME. PER THERAPY, PT DID WELL WITH WALKER AND NEEDS SOME SUPERVISION, NEICE TO BE THERE DURING THE DAY, DTR LIVES BEHIND PT AND WILL BE AVAILABLE AFTER WORK. PT IS OPEN TO HH BUT WANTS TO SEE WHAT DR RECOMMENDS.
[2018-10-25] MEDS ORDERED: NEBULIZER MISCELL (11:28)
[2018-10-25] MEDS ORDERED: GLUCOTROL5 MG PO (11:28)
[2018-10-25] MEDS ORDERED: ATORVASTATIN CA40 MG PO (11:28)
[2018-10-25] MEDS ORDERED: DILTIAZEM 24HR180 M1 PO (11:28)
[2018-10-25] MEDS ORDERED: ACIDOPHILUS1 EAC4 PO (11:28)
[2018-10-25] MEDS ORDERED: LEVALBUTER0.63 MG/3 INH (11:28)
[2018-10-25] MEDS ORDERED: FLECAINIDE ACET50 M1 PO (11:28)
[2018-10-25] MEDS ORDERED: ELIQUIS5 MG PO (11:28)
[2018-10-25] MEDS ORDERED: CEFUROXIME250 MG PO ×2 (11:39→15:25)
[2018-10-25 12:07] VITALS: BP 129/61
[2018-10-25 12:20] VITALS: BP 133/55
--- NOTE | 2018-10-25 13:07 | PATH ---
[facility] [address] [place] [address] PATHOLOGY RPT PROCEDURE Name: ALEJANDRA CRAIG Room: [address] IN M.R.#: [id number] Admission: 10/17/18 Date of : 32 Discharge: Report #: [id number] Path Case #: [id number] [facility] Accession Number: [id number] . 01 Material submitted: . PART A: LEFT TEMPORAL ARTERY PART B: RIGHT TEMPORAL ARTERY . 01 Clinical history: . Bilateral temporal arteritis. . 02 Diagnosis: A. Left temporal artery biopsy: - Mild arteriosclerosis with calcification, with no evidence of active or remote arteritis. See comment. . B. Right temporal artery biopsy: - Mild arteriosclerosis with calcification, with no evidence of active or remote arteritis. See comment. (NAEL:aiyana; 10/22/2018) QMS/10/22/2018 . 02 Comment: Dr. Vinay Huynh notified at approximately 0945 on 10/22/2018. . (NAEL:[facility]; 10/22/2018) . 02 Electronically signed: . Toby Spivey MD, Pathologist NPI- [id number] . 01 Gross description: . A. Received in formalin labeled "Alejandra Craig, left temporal artery" is a segment of vascular tissue measuring 1.1 cm in length and 0.3 cm in diameter. The specimen is submitted in toto in cassette A1 for serial multiple step sectioning per temporal artery protocol. . B. Received in formalin labeled "Alejandra Craig, right temporal artery" is a segment of vascular tissue measuring 1.3 cm in length and 0.2 cm in diameter. The specimen is submitted in toto in cassette B1 for serial multiple step sectioning per temporal artery protocol. ([facility]; 10/21/2018) SYC/SYC . 02 Pathologist provided ICD-10: I70.8 . 02 [place] [address] PATHOLOGY RPT PROCEDURE Name: ALEJANDRA CRAIG Room: [address] IN [facility]#: [id number] Admission: 10/17/18 Date of : 32 Discharge: Report #: [id number] Path Case #: [id number], [id number] Specimen Comment: A courtesy copy of this report has been sent to Specimen Comment: [phone], , . Specimen Comment: Report sent to ,DR RENE / DR MOTA Specimen Comment: A duplicate report has been generated due to demographic updates. Performed at: [address], [place], [place] [id number] MD Nikita Chicas MD Phone: [phone] Performed at: 02 [facility] [address], [place], [place] [id number] MD Toby Spivey MD Phone: [phone]
[2018-10-25] MEDS ORDERED: MACROBID 100 M100 M2 PO ×2 (13:10→15:26)
--- NOTE | 2018-10-25 16:13 | NUR ---
PT OK FOR DISCHARGE.PAPERWORK COMPELTED AND GIVEN TO PT.SCRIPTS GIVEN WITH EDUCATION.PT EDUCATED ON FOLLOW UP APPOINTMENTS.IV REMOVED.HEART MONITOR REMOVED AND RETURNED TO THE NURSING STATION.ALL PERSONAL BELONGINGS PACKED AND TAKEN WITH PT.CONTRERASIA DELIVERED NEBULIZER TO PT ROOM.HOME HEALTH SET UP BY CASE MANAGEMENT.PT WHEELED OUT BY NURSING STAFF TO PERSONAL VEHICLE.
== END 2018-10-25 16:15 | disposition home health service (06) | DRG 40 ==
LOC: M.ERS 13:21 → M.TBA-ER 16:14 → M.2W 16:14
PROVIDERS: Nurse Practitioner Family; Psychiatry & Neurology Neuromuscular Medicine; Specialist; ADMIT Internal Medicine
PROC: 03BS0ZX Excision of Right Temporal Artery, Open Approach, Diagnostic (ICD-10-PCS; principal; 2018-10-20)
PROC: 03BT0ZX Excision of Left Temporal Artery, Open Approach, Diagnostic (ICD-10-PCS; principal; 2018-10-20)
DX: I63.9 Cerebral infarction, unspecified (principal); J18.9 Pneumonia, unspecified organism; I61.1 Nontraumatic intracerebral hemorrhage in hemisphere, cortical; N17.9 Acute kidney failure, unspecified; N13.6 Pyonephrosis; D68.69 Other thrombophilia; N18.3 Chronic kidney disease, stage 3 (moderate); E11.22 Type 2 diabetes mellitus with diabetic chronic kidney disease; B96.20 Unspecified Escherichia coli [E. coli] as the cause of diseases classified elsewhere; T38.0X5A Adverse effect of glucocorticoids and synthetic analogues, initial encounter; E03.9 Hypothyroidism, unspecified; I48.0 Paroxysmal atrial fibrillation; D50.9 Iron deficiency anemia, unspecified; H40.9 Unspecified glaucoma; H35.30 Unspecified macular degeneration; G89.29 Other chronic pain; M54.9 Dorsalgia, unspecified; Z90.49 Acquired absence of other specified parts of digestive tract; Z92.21 Personal history of antineoplastic chemotherapy; Z85.840 Personal history of malignant neoplasm of eye; Z92.3 Personal history of irradiation; Z88.0 Allergy status to penicillin; Z88.2 Allergy status to sulfonamides; Z86.73 Personal history of transient ischemic attack (TIA), and cerebral infarction without residual deficits; Z85.3 Personal history of malignant neoplasm of breast; Y92.89 Other specified places as the place of occurrence of the external cause

== ENCOUNTER → 2018-12-10 | Outpatient (CLI) | payer OTHER ==
[~2018-12-10] MED LIST changes: +ACIDOPHILUS1 EAC4 PO; +ATORVASTATIN CA40 MG PO; +DILTIAZEM 24HR180 M1 PO; +ELIQUIS5 MG PO; +FLECAINIDE ACET50 M1 PO; +GLUCOTROL5 MG PO; +IRON325 PO; +LANTUS100 UNIT/M SUBQ; +LEVALBUTER0.63 MG/3 INH; +MYRBETRIQ25 MG PO; +NEBULIZER MISCELL; +PROCRIT10000 UNIT SUBQ; +PROCRIT3000 UNIT/ SUBQ
== END ==
LOC: M.MRI 12:42
DX: I69.398 Other sequelae of cerebral infarction (principal); G93.89 Other specified disorders of brain; I48.91 Unspecified atrial fibrillation; Z88.0 Allergy status to penicillin

== ENCOUNTER 2018-12-12 16:40 | Inpatient (IN) | payer OTHER ==
[~2018-12-12] VITALS: Ht 154.9 cm; Wt 70.3 kg
--- NOTE | ~2018-12-12 | CON ---
[address] [address] CONSULTATION Name: ALESSIA PRESSLEY Room: [address] IN M.R.#: [id number] Admission: 12/12/18 Attend Phys: Daija Mendoza Discharge: Date of : 32 Report #: [id number] THIS REPORT FOR: //name// CC: Blake Orellana DATE OF SERVICE: 12/13/2018 CONSULTATION: Infectious diseases. HISTORY OF PRESENT ILLNESS: The patient is an 88-year-old white female who comes to the hospital after suffering a ground level fall. According to her daughter, she was seen at about 2:30 in the afternoon of 12/12/2018. The patient has been started on ertapenem at home and the daughter had come over to do her infusions. The patient has been very anxious and had taken an Ativan and seemed a bit out of it, but ____ usual baseline. The daughter returned approximately 2-1/2 hours later and found the patient had fallen on the floor and had a bloody nose. There was no loss of consciousness. The patient was unable to get up from the floor. She was brought to the hospital for further evaluation and treatment. The patient is currently being treated by Dr. Mosher ([phone]) for urinary tract infection due to multidrug resistant organism. She was scheduled to continue the antibiotics for another 4 days. She had seen Dr. Jorge at [facility] several weeks ago, but had to work with Dr. Mosher because of insurance participation. PAST MEDICAL HISTORY: Significant for diabetes with hypertension, hyperlipidemia. 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 She is a previous stroke. She has a chronic Vora catheter with chronic urinary tract infections. PAST SURGICAL HISTORY: Includes lumpectomy for breast cancer, rotator cuff surgery, back surgery, and appendectomy. ALLERGIES: The patient has drug allergies TO PENICILLIN AND SULFA. SOCIAL HISTORY: The patient lives by herself, but has a daughter who lives, I believe just next door and 2 other children in the area. They have been very helpful. No history of tobacco, alcohol nor drugs. The patient is . REVIEW OF SYSTEMS: At this time, the patient says she feels pretty much back to baseline. She denies fevers, chills, sweats. She denies any sinus congestion, sore throat, trouble swallowing. She denies any change in her baseline mental status. She did have some memory lapse around the time of the fall, but otherwise feels like she has a normal cognitive function[place] [address] CONSULTATION Name: ALESSIA PRESSLEY Room: [address] IN ..#: [id number] Admission: 12/12/18 Attend Phys: Daija Mendoza Discharge: Date of : 32 Report #: [id number] cough, chest pain, shortness of breath. She denies nausea, vomiting. She has developed significant diarrhea from the antibiotic, but has a hard time characterizing have many stools a day. She does says "all the time." She says the stools are mushy and she has some issues with incontinence and is using a pad. The patient has a Vora catheter and has no urinary symptoms. The patient has her chronic back pain, but no new musculoskeletal pain. She feels generally weak, but is still ambulatory. MEDICATION RECONCILIATION: Current medications are as follows: Levalbuterol 0.63 mg q.6 hours by inhalation, lactobacillus 2 tablets p.o. t.i.d., meropenem 250 mg IV q. 12, aspirin 81 mg daily, pantoprazole 40 mg daily, hydralazine 10 mg q. 6 p.r.n. IV, Colace 100 mg daily, MiraLax 17 grams daily, Tylenol 650 mg p.r.n., lisinopril 10 mg daily, calcium carbonate 600 mg b.i.d., Apixaban 2.5 mg p.o. b.i.d., mirabegron 25 mg daily, folic acid 1 mg daily, iron sulfate 325 mg daily, diltiazem long acting 180 mg daily, cholecalciferol 1000 units daily, L-thyroxine 0.1 mg daily, glipizide 2.5 mg daily, eyedrops t.i.d., Terazosin 5 mg at bedtime, flecainide 50 mg b.i.d., atorvastatin 40 mg at bedtime, ondansetron 4 mg IV p.r.n., fentanyl 50 mcg IV q.4 hours p.r.n., lisinopril 10 mg daily. PHYSICAL EXAMINATION: GENERAL: The patient appears alert, oriented, comfortable, not in any distress. VITAL SIGNS: Show the patient is afebrile. ENT: Negative except for some minor trauma around the lip and forehead. The nose is not swollen. There is no obstruction to breathing. Cognitive function is grossly normal. NECK: Supple. HEART: Sounds S1, S2. LUNGS: Clear. ABDOMEN: Belly is thin, soft, not tender. The patient has a Vora catheter with clear urine. EXTREMITIES: Unremarkable. LABORATORY DATA: White count is 8.0, hemoglobin 10.4, which is elevated from her previous [facility] hospitalization, platelets 363,000. Electrolytes normal. BUN 44, creatinine 2.2. Lactate was normal. Prealbumin was normal. Blood cultures x 2 are negative so far. Urinalysis shows greater than 25 white cells, but culture so far is negative. Previous culture at [facility] done on 10/17/2018 showed E. coli in the urine, which demonstrated resistance to ampicillin, Rocephin, Cipro and trimethoprim sulfa. It was susceptible to meropenem and nitrofurantoin. ASSESSMENT AND PLAN: In summary, the patient who was being treated for urinary tract infection by Dr. Mosher. I would like to review her records carefully to see if this was asymptomatic urinary tract infection versus asymptomatic bacteriuria. I would also like to review [place] [address] CONSULTATION Name: WENDIEALESSIA Room: [address] IN [facility]#: [id number] Admission: 12/12/18 Attend Phys: Daija Mendoza Discharge: Date of : 32 Report #: [id number] of the urine, which she based her antibiotic choice on. Here in the hospital, we will continue using thienamycin with meropenem in the low dose for urinary tract infection with elevated creatinine. We will use 250 mg IV q. 12 hours. We will request records from Dr. Mosher in from [facility] where the culture was done. The patient will require contact isolation because of the resistant pj. We can add probiotics and consider changing the Colace and MiraLax to p.r.n. because of the patient's complaint of diarrhea with incontinence. We should check a stool for C. difficile for antibiotic-associated diarrhea. Once we have a chance to review the records, we will be able to discuss with Dr. Mosher and come to a plan. She may not need any more IV antibiotics even if she does have pyuria. The patient may benefit from some kind of urinary antisepsis for recurring infections with a Vora catheter. Something like Uribel may be indicated. Generally asymptomatic bacteriuria with a Vora catheter does not require antibiotic treatment. Dr. Madera will return on Thursday and assume followup care for this patient. Hopefully, he can get all the information together and make plan to get the patient home in the near future. Thank you for consulting Infectious Disease. By: [phone] [id number] Wise MD /verónica
[~2018-12-12 16:40] MED LIST changes: -COMBIGAN EYE DR10 ML OP
[2018-12-12 16:41] VITALS: BP 138/75
[2018-12-12 17:12] LABS: ABSOLUTE BASOPHILS 0.1 thou/uL (0.0-0.2); ABSOLUTE EOSINOPHILS 0.2 thou/uL (0.0-0.7); ABSOLUTE LYMPHOCYTES 1.6 thou/uL (0.8-5.3); ABSOLUTE MONOCYTES 0.4 thou/uL (0.0-1.2); ABSOLUTE NEUTROPHILS 5.7 thou/uL (1.6-8.1); BASOPHILS 0.7 %; HEMATOCRIT 31.6 % (37.0-47.0); HEMOGLOBIN 10.4 gm/dL (12.0-15.0); LYMPHOCYTES 19.7 %; MCH 28.9 pg (26.0-34.0); MCV 87.8 fL (80.0-100.0); MONOCYTES 5.3 %; MPV 6.8 fl. (7.2-11.1); NUCLEATED RBCS 0 /100WBC; PLATELET COUNT* 323 thou/uL (150-400); POLYS 71.3 %; RDW-CV 17.1 % (10.5-14.5)
[2018-12-12 17:25] LABS: APTT 30.7 Seconds (25.0-31.3); PROTIME 10.2 Seconds (9.20-11.50)
[2018-12-12 17:27] LABS: ANION GAP 9 mmol/L (7-16); BUN 44 mg/dL (7-18); CALCIUM 8.8 mg/dL (8.5-10.1); CHLORIDE 103 mmol/L (98-107); CO2 27 mmol/L (21-32); CREATININE 2.2 mg/dL (0.6-1.3); GLUCOSE 106 mg/dL (70-99); POTASSIUM 4.3 mmol/L (3.5-5.1); SODIUM 139 mmol/L (136-145); TROPONIN-I LEVEL <0.06 ng/mL (<0.06)
[2018-12-12 17:29] LABS: ALBUMIN 2.8 g/dL (3.4-5.0); ALKALINE PHOSPHATASE 54 U/L (46-116); NT-PRO BRAIN NAT PEPTIDE 2719 pg/mL (<300); SGOT 12 U/L (15-37); SGPT 11 U/L (30-65); TOTAL BILIRUBIN 0.1 mg/dL (<0.1-1.0); TOTAL PROTEIN 6.8 g/dL (6.4-8.2)
[2018-12-12 19:38] LABS: URINE BILIRUBIN NEGATIVE (Negative); URINE BLOOD 1+ (Negative); URINE CLARITY SL CLOUDY; URINE COLOR STRAW; URINE GLUCOSE-RANDOM NEGATIVE (Negative); URINE KETONES NEGATIVE (Negative); URINE NITRITE-REFLEX NEGATIVE (Negative); URINE PROTEIN TRACE (Negative); URINE UROBILINOGEN 0.2 E.U./dl (0.2-1.0)
[2018-12-12 19:40] LABS: URINE LEUKOCYTES-REFLEX 3+ (Negative)
[2018-12-12 19:44] LABS: SQUAMOUS 0-3 Few /LPF (0-3); WBC CLUMPS Few (None Seen)
[2018-12-12 19:45] LABS: URINE RBC 0-2 Rare /HPF (0-2); URINE WBC-REFLEX >25 Many /HPF (0-5)
[2018-12-12 19:46] LABS: CASTS None Seen /LPF (None Seen); CRYSTALS None Seen /LPF (None Seen); MUCUS None Seen strn/LPF (None Seen)
[2018-12-12 20:31] VITALS: BP 163/71
[2018-12-12 21:10] VITALS: BP 150/60
[2018-12-13 00:30] VITALS: BP 140/53
[2018-12-13 04:00] VITALS: BP 129/45
[2018-12-13 08:00] VITALS: BP 169/64
[2018-12-13 11:26] LABS: ALBUMIN 2.6 g/dL (3.4-5.0); CALCIUM 8.3 mg/dL (8.5-10.1); CREATININE 2.1 mg/dL (0.6-1.3); POTASSIUM 4.4 mmol/L (3.5-5.1); TOTAL BILIRUBIN 0.2 mg/dL (<0.1-1.0); TOTAL PROTEIN 5.8 g/dL (6.4-8.2)
[2018-12-13 12:01] VITALS: BP 159/63
--- NOTE | 2018-12-13 13:10 | EKG ---
[place] [address] ELECTROCARDIOGRAM REPORT Name: ALESSIA PRESSLEY Room: [address] ADM IN M.R.#: [id number] Admission: 12/12/18 Attend Phys: Daija Mendoza Discharge: Date of : 32 Report #: [id number] THIS REPORT FOR: //name// [facility] ED Test Date: 2018-12-12 Test Time: 17:09:57 Pat Name: ALESSIA PRESSLEY Department: Room: [facility] Gender: F [employer] Ii Assembler: Zunilda GIRARD : 1930 Requested By: Christine Martines Order Number: [id number] MD: Chance Solis Measurements Intervals [place] Rate: 64 P: 14 MA: 222 QRS: -50 QRSD: 112 T: 45 QT: 425 QTc: 439 Interpretive Statements Sinus rhythm Prolonged MA interval Left anterior fascicular block Abnormal R-wave progression, late transition Compared to ECG 10/24/2018 05:00:13 First degree AV block now present Atrial fibrillation no longer present Electronically Signed On 12-13-2018 13:09:50 CDT by Chance Solis [email or web address] <ELECTRONICALLY SIGNED> By: Chance Solis MD, FAC 12/13/18 1309 1709 1709 Chance Solis MD, FAC /EPI
[2018-12-13 19:45] VITALS: BP 168/76
[2018-12-13 23:06] LABS: GLYCOHEMOGLOBIN (HGB A1C) 6.9 % (4.8-5.6)
[2018-12-14] VITALS: BP 152/56
[2018-12-14 04:00] VITALS: BP 164/62
[2018-12-14 05:49] LABS: ABSOLUTE BASOPHILS 0.1 thou/uL (0.0-0.2); ABSOLUTE EOSINOPHILS 0.2 thou/uL (0.0-0.7); ABSOLUTE LYMPHOCYTES 1.7 thou/uL (0.8-5.3); ABSOLUTE MONOCYTES 0.6 thou/uL (0.0-1.2); ABSOLUTE NEUTROPHILS 5.5 thou/uL (1.6-8.1); BASOPHILS 0.9 %; EOSINOPHILS 2.7 %; HEMATOCRIT 29.6 % (37.0-47.0); HEMOGLOBIN 9.6 gm/dL (12.0-15.0); LYMPHOCYTES 20.7 %; MCH 28.7 pg (26.0-34.0); MCHC 32.2 g/dL (28.0-37.0); MONOCYTES 6.9 %; MPV 7.1 fl. (7.2-11.1); NUCLEATED RBCS 0 /100WBC; PLATELET COUNT* 251 thou/uL (150-400); POLYS 68.8 %; RBC 3.33 mil/uL (4.20-5.00); RDW-CV 17.1 % (10.5-14.5)
[2018-12-14 05:56] LABS: ANION GAP 7 mmol/L (7-16); BUN 30 mg/dL (7-18); CALCIUM 8.5 mg/dL (8.5-10.1); CHLORIDE 108 mmol/L (98-107); CHOLESTEROL 93 mg/dL (<200); CO2 24 mmol/L (21-32); CREATININE 1.8 mg/dL (0.6-1.3); GLUCOSE 138 mg/dL (70-99); HDL CHOLESTEROL 42 mg/dL (>40); LDL CHOLESTEROL 31 mg/dL (<100); SODIUM 139 mmol/L (136-145); TC:HDL 2.2 Ratio (Not establshd); TRIGLYCERIDE 104 mg/dL (<150); VLDL 21 mg/dL (<40)
[2018-12-14 05:57] LABS: SERUM ASSESSMENT Clear
[2018-12-14 08:00] VITALS: BP 175/61
[2018-12-14 13:41] VITALS: BP 168/70
[2018-12-14 16:27] VITALS: BP 173/70
[2018-12-14 20:15] VITALS: BP 185/56
[2018-12-15 04:13] VITALS: BP 143/76
[2018-12-15 08:21] VITALS: BP 188/71
[2018-12-15 12:11] VITALS: BP 155/63
--- NOTE | 2018-12-15 13:29 | EKG ---
[place] [address] ELECTROCARDIOGRAM REPORT Name: ALESSIA PRESSLEY Room: [address] ADM IN M.R.#: [id number] Admission: 12/12/18 Attend Phys: Daija Mendoza Discharge: Date of : 34 Report #: [id number] THIS REPORT FOR: //name// [facility] Test Date: 2018-12-15 Test Time: 08:08:11 Pat Name: ALESSIA PRESSLEY Department: Room: [address] Gender: F [employer]: : 1930 Requested By: Blas Orellana Order Number: [id number] Lakeshia MD: Chance Solis Measurements Intervals [place] Rate: 106 P: OR: QRS: -57 QRSD: 100 T: 36 QT: 344 QTc: 457 Interpretive Statements Atrial fibrillation Left anterior fascicular block Consider anterior infarct Compared to ECG 12/12/2018 17:09:57 Sinus rhythm no longer present Electronically Signed On 12-15-2018 13:29:46 CDT by Chance Solis [email or web address] <ELECTRONICALLY SIGNED> By: Chance Solis MD, [facility] 12/15/18 1329 [id number] [id number] Chance Solis MD, [facility] /EPI
--- NOTE | 2018-12-15 14:23 | EEG ---
[address] [address] EEG STUDY REPORT Name: PRESSLEYALESSIA Room: [address] IN M.R.#: [id number] Admission: 12/12/18 Attend Phys: Daija Mendoza Discharge: Date of : 32 Report #: [id number] THIS REPORT FOR: //name// CC: Blake Orellana DATE OF SERVICE: 12/13/2018 INTERPRETATION: This patient had an episode of passing out. EEG was done by placing the electrodes by standard 10-20 system of electrode placement. Both referential and sequential montages were used for recording. Background activity in this patient's EEG is about 10 Hz and 40 microvolts. The patient became drowsy and that is associated with bilateral slowing and vertex sharp waves. Photic stimulation was unremarkable. Throughout the record, no active epileptiform activity was noticed. IMPRESSION: This patient's EEG is unremarkable. <ELECTRONICALLY SIGNED> By: Vinay Huynh MD 12/15/18 1423 1717 [id number] Huynh MD /nt
--- NOTE | 2018-12-15 14:23 | CON ---
[address] [address] CONSULTATION Name: ALESSIA PRESSLEY Room: [address] ADM IN M.R.#: [id number] Admission: 12/12/18 Attend Phys: Daija Mendoza Discharge: Date of : 32 Report #: [id number] THIS REPORT FOR: //name// CC: Blake Orellana DATE OF SERVICE: 12/13/2018 HISTORY OF PRESENT ILLNESS: This is an 88-year-old female patient who is well known to me. I saw her last time she was here. She had a stroke. The stroke was most likely cardioembolic. She is on anticoagulation. She was living at home, but her daughter was checking on her frequently. She was found to be passed out. She was incontinent of urine. No tonic-clonic activity was noticed. REVIEW OF SYSTEMS: Indicate that recently she has been found to have a urinary tract infection. She was initially seen by the primary care and subsequently was sent to Infectious Disease specialist. They started the patient on antibiotics. She is still being seen by Infectious Disease here. She is confused, but may be somewhat better. She had a CT scan of the head in the Emergency Room that showed old changes. She had pretty pronounced symptoms in the eye when she came in that has mostly resolved. Her vision is not very poor, but difficult to assess because the patient has confusion and altered mental status. She has a history of rotator cuff problems, appendectomy, chronic back pain, herniated disk, UTI, diverticulosis, a lumpectomy, chemo and radiation, macular degeneration, ischemic stroke, chronic kidney disease. Lens implant. She is not having that many urinary symptoms. She denies any new psychiatric, throat, allergic, dermatological, hematological symptoms. She does have some GI symptoms. She does not have any ENT symptoms, which are new. PAST MEDICAL HISTORY: Positive for stroke. FAMILY HISTORY: Negative for any early age stroke. SOCIAL HISTORY: She still lives independently, but that question needs to be addressed again. PHYSICAL EXAMINATION: Indicates that the patient is alert, responsive. She can tell me it is November. She cannot tell me the full date. Her memory is diminished compared to last time. She does look more confused. Cranial nerve examination 2-12 was attempted. She has trouble with counting finger on the right side. Her cooperation is poor. She moves all 4 extremities. She appreciates the pinprick, but does not have any other abnormality of tone and reflexes look symmetrical. She could not cooperate with the fundus examination. There is no meningeal sign. Cardiac examination does not demonstrate atrial fibrillation anymore. No respiratory difficulty was [place] [address] CONSULTATION Name: ALESSIA PRESSLEY Room: [address] IN M.R.#: [id number] Admission: 12/12/18 Attend Phys: Daija Mendoza Discharge: Date of : 32 Report #: [id number] difficult to feel. No edema, cyanosis, jaundice was noticed. Blood pressure is 159/63, respiration is 20, pulse is 97%, temperature is 98.2. LABORATORY DATA: Indicate a white count of 8.0. She is moderately built individual who does not have any dysmorphic features of eyes, ears and face. Her GFR is only 22. She did have a CT scan of the head, which does not show any acute abnormality. We recently had an MRI done, which I reviewed. IMPRESSION: This patient most likely has encephalopathy. That encephalopathy is most likely because of urinary tract infection. She is predisposed to have seizures. I discussed all of it with the family. I discussed with them that they need to make a decision whether she is safe to stay at home or whether she needs to go to some supervised care. They will think about that. I will not repeat the MRI again because she is already on anticoagulation, but we will check an EEG for any seizure activity and talk to the again to see how aggressive they want to be. Thank you very much for this referral. <ELECTRONICALLY SIGNED> By: Vinay Huynh MD 12/15/18 1423 1439 [id number] Huynh MD /nt
[2018-12-15 15:59] VITALS: BP 177/66
[2018-12-15 19:40] VITALS: BP 183/77
[2018-12-16 00:13] VITALS: BP 107/81
[2018-12-16 04:06] VITALS: BP 131/57
[2018-12-16 08:07] VITALS: BP 152/55
--- NOTE | 2018-12-16 09:47 | EKG ---
[place] [address] ELECTROCARDIOGRAM REPORT Name: ALESSIA PRESSLEY Room: [address] ADM IN M.R.#: [id number] Admission: 12/12/18 Attend Phys: Daija Mendoza Discharge: Date of : 32 Report #: [id number] THIS REPORT FOR: //name// [facility] Test Date: 2018-12-16 Test Time: 08:35:58 Pat Name: ALESSIA PRESSLEY Department: Room: [address] Gender: F Alumni Secretary: LAURA : 1930 Requested By: Chance Solis Order Number: [id number] Lakeshia MD: Sky Ibarra Measurements Intervals [place] Rate: 66 P: -55 AR: 233 QRS: -60 QRSD: 94 T: 13 QT: 399 QTc: 418 Interpretive Statements Sinus rhythm Prolonged AR interval Left anterior fascicular block Low voltage, precordial leads Consider anterior infarct Compared to ECG 12/15/2018 08:08:11 First degree AV block now present Low QRS voltage now present Atrial fibrillation no longer present Myocardial infarct finding still present Electronically Signed On 12-16-2018 9:47:42 CDT by Sky Ibarra [email or web address] <ELECTRONICALLY SIGNED> By: Sky Ibarra MD, FACC 12/16/18 0947 Sky Ibarra MD, FACC /EPI
[2018-12-16 11:42] VITALS: BP 136/52
--- NOTE | 2018-12-16 12:46 | CON ---
[address] [address] CONSULTATION Name: ALESSIA PRESSLEY Room: [address] IN M.R.#: [id number] Admission: 12/12/18 Attend Phys: Daija Mendoza Discharge: Date of : 32 Report #: [id number] THIS REPORT FOR: //name// CC: Blake Nazario DO Blas Orellana DATE OF SERVICE: 12/15/2018 HISTORY OF PRESENT ILLNESS: The patient is an 88-year-old single white female who I was asked to see in the hospital today after she went into atrial fibrillation. The patient has a long history of diabetes and hypertension. She actually presented here to [facility] in September with headache. She was found to have evidence of an ischemic stroke and visual field defect. She went into atrial fibrillation and was seen by my partner, Dr. Sky Ibarra. She was started on Eliquis. Recently, she was found to have E. coli urinary tract infection and had a PICC line placed. Apparently, previous MRIs showed a brain tumor. She had a repeat MRI last week as an outpatient and 3 days ago, her daughter went to check on her and the patient was lying on the floor. She was brought here by ambulance and admitted. She has been confused. Last night, she went back in atrial fibrillation. I was asked to see her for further evaluation and treatment. According to family, she has no history of chest pain, myocardial infarction, shortness of breath, palpitations. She has had no bleeding taking the Eliquis. PAST MEDICAL HISTORY: Otherwise, she has had previous cholecystectomy, shoulder surgery, cataract extraction, back surgery, hypertension, diabetes. MEDICATIONS: On admission 4 days ago consisted of Eliquis, flecainide 50 mg twice a day, Lipitor, Cardizem CD, glipizide, inhaler. ALLERGIES: She has allergy to PENICILLIN, SULFA. FAMILY HISTORY: Positive for heart disease. SOCIAL HISTORY: She is , lives by herself in [place], uses a walker. No smoking or alcohol abuse. REVIEW OF SYSTEMS: She has had no history of peptic ulcer disease, liver disease, kidney disease, cancer, psychiatric illness, chronic skin condition. PHYSICAL EXAMINATION: GENERAL: Revealed an elderly frail-appearing female, lying in bed. She was mumbling frequently. VITAL SIGNS: Blood pressure 160/70, pulse 70. She is afebrile. HEENT: She is anicteric, conjunctiva pink. Muc[place] [address] CONSULTATION Name: ALESSIA PRESSLEY Room: [address]#: [id number] Admission: 12/12/18 Attend Phys: Daija eMndoza Discharge: Date of : 32 Report #: [id number] NECK: Veins do not appear distended. CHEST: Clear to auscultation. CARDIAC: Regular rate and rhythm. ABDOMEN: Soft. EXTREMITIES: No edema. Dorsalis pedis pulse 2+ bilaterally. SKIN: Warm, dry. NEUROLOGIC: Nonfocal. LABORATORY DATA: ECG on admission 4 days ago showed a sinus rhythm with left anterior fascicular block. Last night, the patient appeared to go in atrial fibrillation with rapid ventricular response rate, currently she appears to be back in a sinus rhythm. Her workup, she had an echocardiogram in September that showed ejection fraction 60%, left atrial enlargement, aortic sclerosis, no evidence of intracardiac shunt by bubble study. Her chest x-ray 3 days ago showed normal heart size, otherwise clear lung carter, calcification of the aortic arch. Her lab work, sodium 139; BUN 30; creatinine 1.8, it has been as high as 2.4 in September. Glucose 138. Liver function studies were normal. Albumin 2.6. Troponin 0.06. BNP 2719. Cholesterol 93, triglycerides 104, HDL 42, LDL 31. In September, TSH was 0.5. Her white blood cell count 8.0, hemoglobin 9.6, it was actually 9.3 in September with iron saturation 28%, ferritin 237 in the past. IMPRESSION AND RECOMMENDATIONS: 1. Paroxysmal atrial fibrillation. I would recommend increasing flecainide to 100 mg every 12 hours. I would continue anticoagulation with Eliquis. 2. Previous stroke. The patient is anticoagulated. 3. History of brain tumor. 4. History of antibiotic resistant E. coli urinary tract infection. 5. Anemia. No history of bleeding. 6. Chronic kidney disease. The patient had GFR of 27. I would recommend decreasing Eliquis to 2.5 mg every 12 hours. 7. History of hypertension. 8. Diabetes. 9. Confusion. <ELECTRONICALLY SIGNED> By: Chance Solis MD, FACC 12/16/18 1246 1012 [id number] Solis MD, FACC /nt
[2018-12-16 15:40] VITALS: BP 138/45
[2018-12-16 19:40] VITALS: BP 150/60
[2018-12-17 00:33] VITALS: BP 154/43
[2018-12-17 04:21] LABS: HEMATOCRIT 31.8 % (37.0-47.0); HEMOGLOBIN 10.3 gm/dL (12.0-15.0); MCH 28.8 pg (26.0-34.0); MCHC 32.3 g/dL (28.0-37.0); MCV 89.1 fL (80.0-100.0); MPV 7.4 fl. (7.2-11.1); RBC 3.56 mil/uL (4.20-5.00); WBC 9.3 thou/uL (4.0-11.0)
[2018-12-17 04:39] LABS: ALBUMIN 2.2 g/dL (3.4-5.0); CALCIUM 9.3 mg/dL (8.5-10.1); MAGNESIUM 1.7 mg/dL (1.8-2.4); POTASSIUM 4.4 mmol/L (3.5-5.1); TOTAL BILIRUBIN 0.3 mg/dL (<0.1-1.0); TOTAL PROTEIN 6.2 g/dL (6.4-8.2)
[2018-12-17 04:48] VITALS: BP 162/46
[2018-12-17 07:48] VITALS: BP 150/47
[2018-12-17 11:19] LABS: URINE BILIRUBIN NEGATIVE (Negative); URINE BLOOD 3+ (Negative); URINE CLARITY CLEAR; URINE COLOR YELLOW; URINE GLUCOSE-RANDOM NEGATIVE (Negative); URINE KETONES 1+ (Negative); URINE NITRITE-REFLEX NEGATIVE (Negative); URINE PROTEIN 1+ (Negative); URINE SPECIFIC GRAVITY 1.025 (1.005-1.030); URINE UROBILINOGEN 0.2 E.U./dl (0.2-1.0)
[2018-12-17 11:20] LABS: URINE LEUKOCYTES-REFLEX 3+ (Negative)
[2018-12-17 11:26] LABS: BACTERIA-REFLEX >30 Many /HPF (None Seen); CASTS None Seen /LPF (None Seen); CRYSTALS None Seen /LPF (None Seen); SQUAMOUS NONE SEEN /LPF (0-3); URINE RBC 0-2 Rare /HPF (0-2); URINE WBC-REFLEX >25 Many /HPF (0-5)
[2018-12-17 11:43] VITALS: BP 146/47
[2018-12-17 15:59] VITALS: BP 153/52
[2018-12-17 20:00] VITALS: BP 133/42
[2018-12-18] VITALS: BP 136/47
[2018-12-18 04:04] VITALS: BP 159/55
[2018-12-18 05:25] LABS: HEMOGLOBIN 9.3 gm/dL (12.0-15.0); MCH 28.4 pg (26.0-34.0); MCV 88.8 fL (80.0-100.0); MPV 7.6 fl. (7.2-11.1); RBC 3.26 mil/uL (4.20-5.00); WBC 8.3 thou/uL (4.0-11.0)
[2018-12-18 06:09] LABS: CALCIUM 8.7 mg/dL (8.5-10.1); CREATININE 2.1 mg/dL (0.6-1.3); POTASSIUM 4.5 mmol/L (3.5-5.1)
[2018-12-18 08:00] VITALS: BP 166/56
[2018-12-18 12:00] VITALS: BP 153/62
[2018-12-18 16:00] VITALS: BP 166/57
[2018-12-18 20:00] VITALS: BP 163/55
[2018-12-19] VITALS: BP 168/48
[2018-12-19 04:00] VITALS: BP 162/68
[2018-12-19 05:15] LABS: ABSOLUTE EOSINOPHILS 0.2 thou/uL (0.0-0.7); ABSOLUTE LYMPHOCYTES 1.6 thou/uL (0.8-5.3); ABSOLUTE MONOCYTES 0.4 thou/uL (0.0-1.2); ABSOLUTE NEUTROPHILS 4.9 thou/uL (1.6-8.1); BASOPHILS 0.6 %; EOSINOPHILS 3.5 %; HEMOGLOBIN 9.3 gm/dL (12.0-15.0); MCH 28.4 pg (26.0-34.0); MCV 88.8 fL (80.0-100.0); MONOCYTES 5.7 %; MPV 7.5 fl. (7.2-11.1); NUCLEATED RBCS 0 /100WBC; PLATELET COUNT* 209 thou/uL (150-400); POLYS 68.2 %; RBC 3.27 mil/uL (4.20-5.00); RDW-CV 16.6 % (10.5-14.5); WBC 7.2 thou/uL (4.0-11.0)
[2018-12-19 05:47] LABS: CALCIUM 8.9 mg/dL (8.5-10.1); CREATININE 1.8 mg/dL (0.6-1.3); POTASSIUM 4.6 mmol/L (3.5-5.1)
[2018-12-19 08:00] VITALS: BP 158/55
[2018-12-19 12:00] VITALS: BP 145/73
[2018-12-19 20:00] VITALS: BP 167/63
[2018-12-19 23:50] VITALS: BP 174/62
[2018-12-20 04:00] VITALS: BP 166/51
[2018-12-20 08:00] VITALS: BP 161/53
[2018-12-20 12:20] VITALS: BP 158/60
[2018-12-20 16:44] VITALS: BP 183/63
[2018-12-20 20:58] VITALS: BP 183/56
[2018-12-20 23:03] VITALS: BP 194/65
[2018-12-21 08:00] VITALS: BP 182/90
[2018-12-21 12:13] VITALS: BP 148/61
[2018-12-21] MEDS ORDERED: ACIDOPHILUS1 EAC4 PO (15:26)
[2018-12-21] MEDS ORDERED: ADULT LOW DOSE81 MG PO (15:26)
[2018-12-21] MEDS ORDERED: CLONIDINE1 EACH TRANSDERM (15:26)
[2018-12-21] MEDS ORDERED: FIRVANQ50 MG/1 ML PO (15:26)
[2018-12-21] MEDS ORDERED: EPOGEN2000 UNIT/ SUBQ (15:26)
[2018-12-21] MEDS ORDERED: LANOXIN125 MCG PO (15:26)
[2018-12-21] MEDS ORDERED: FLECAINIDE ACET50 M1 PO (15:26)
[2018-12-21] MEDS ORDERED: AMLODIPINE BESYL5 M1 PO (15:26)
[2018-12-21] MEDS ORDERED: COMBIGAN EYE DR10 ML OP (15:54)
[2018-12-21 16:14] VITALS: BP 148/61
== END 2018-12-21 16:50 | DRG 689 ==
LOC: M.ERS 16:40 → M.2W 18:50 → M.TBA-ER 18:50 → M.2W 18:50
PROVIDERS: Internal Medicine; Nurse Practitioner Family; ADMIT Internal Medicine
DX: N39.0 Urinary tract infection, site not specified (principal); G92 Toxic encephalopathy; N17.9 Acute kidney failure, unspecified; A04.72 Enterocolitis due to Clostridium difficile, not specified as recurrent; E44.0 Moderate protein-calorie malnutrition; I12.9 Hypertensive chronic kidney disease with stage 1 through stage 4 chronic kidney disease, or unspecified chronic kidney disease; H35.30 Unspecified macular degeneration; E11.22 Type 2 diabetes mellitus with diabetic chronic kidney disease; N18.9 Chronic kidney disease, unspecified; D64.9 Anemia, unspecified; E78.5 Hyperlipidemia, unspecified; I48.2 Chronic atrial fibrillation; Z96.1 Presence of intraocular lens; M54.9 Dorsalgia, unspecified; M19.90 Unspecified osteoarthritis, unspecified site; I48.0 Paroxysmal atrial fibrillation; B96.20 Unspecified Escherichia coli [E. coli] as the cause of diseases classified elsewhere; G89.29 Other chronic pain; S00.83XA Contusion of other part of head, initial encounter; W18.39XA Other fall on same level, initial encounter; Z68.29 Body mass index [BMI] 29.0-29.9, adult; Z86.73 Personal history of transient ischemic attack (TIA), and cerebral infarction without residual deficits; Y93.89 Activity, other specified; Y92.89 Other specified places as the place of occurrence of the external cause; Y99.8 Other external cause status; Z85.3 Personal history of malignant neoplasm of breast; Z92.21 Personal history of antineoplastic chemotherapy; Z92.3 Personal history of irradiation; Z90.49 Acquired absence of other specified parts of digestive tract; Z88.0 Allergy status to penicillin; Z88.2 Allergy status to sulfonamides; Z98.49 Cataract extraction status, unspecified eye; Z82.49 Family history of ischemic heart disease and other diseases of the circulatory system; Z79.899 Other long term (current) drug therapy; Z79.84 Long term (current) use of oral hypoglycemic drugs

== ENCOUNTER 2018-12-21 15:02 | Inpatient (IN) | payer OTHER ==
[~2018-12-21] VITALS: Ht 154.9 cm; Wt 70.3 kg
[2018-12-21] MEDS ORDERED: LANOXIN125 MCG PO (15:26)
[2018-12-21] MEDS ORDERED: ACIDOPHILUS1 EAC4 PO (15:26)
[2018-12-21] MEDS ORDERED: FIRVANQ50 MG/1 ML PO (15:26)
[2018-12-21] MEDS ORDERED: ADULT LOW DOSE81 MG PO (15:26)
[2018-12-21] MEDS ORDERED: CLONIDINE1 EACH TRANSDERM (15:26)
[2018-12-21] MEDS ORDERED: EPOGEN2000 UNIT/ SUBQ (15:26)
[2018-12-21] MEDS ORDERED: AMLODIPINE BESYL5 M1 PO (15:26)
[2018-12-21] MEDS ORDERED: FLECAINIDE ACET50 M1 PO (15:26)
[2018-12-21] MEDS ORDERED: COMBIGAN EYE DR10 ML OP (15:54)
[2018-12-21 17:29] VITALS: BP 153/59
[2018-12-21 19:00] VITALS: BP 146/51
--- NOTE | 2018-12-21 19:01 | NUR ---
ASSUMMED CARE OF PT UPON ARRIVAL TO UNIT ADMISSION, PT ALERT AND ORIENTED FORGETFUL, PT INCONTINENT OF URINE, BRIEF REMOVED, PT HAS REDDENED GROIN/MAXIMILIAN AREA, OPEN AREA ON SACRUM/COCCYX AND RED AREA ABOVE OPEN AREA, PT TURNED ON SIDE, PT TAKING FOOD AND FLUIDS WELL, PT ON ISOLATION PRECAUTIONS FOR C DIFF, PT IS CONFIDENTIAL AND ONLY INFORMATION IS TO BE GIVEN TO DAUGHTER DEVENDRA, THE CODE FOR HER TO GIVE STAFF TO GET INFORMATION IS 1820. PT HAS SINGLE LUMEN PICC IN RIGHT UPPER ARM, FAMILY WILL BRING LIVING IN LIVING WILL TOMORROW, DAUGHTER AND PATIENT ORIENTED TO ROOM AND REHAB ROUTINE, QUESTIONS ANSWERED ASSESSMENT COMPLETE, WILL CONTINUE TO MONITOR.
--- NOTE | 2018-12-21 21:05 | NUR ---
AWAKENED FOR HS REASSESSMENT AND MEDICATION PASS. NO COMPLAINTS VOICED. PATIENT WAS UNAWARE THAT SHE WAS INCONTINENT OF URINE. MAXIMILIAN CARE GIVEN. MOISTURE BARRIER APPLIED TO BUTTOCKS AND UPPER THIGHS. TOOK MEDICATIONS WHOLE TWO AT A TIME WITH WATER. IN SPECIAL ISOLATION FOR C-DIFF.
[2018-12-22 05:10] LABS: HEMATOCRIT 28.3 % (37.0-47.0); HEMOGLOBIN 9.1 gm/dL (12.0-15.0); MCH 28.2 pg (26.0-34.0); MCV 87.9 fL (80.0-100.0); MPV 7.9 fl. (7.2-11.1); RBC 3.22 mil/uL (4.20-5.00); WBC 6.6 thou/uL (4.0-11.0)
[2018-12-22 05:23] LABS: CREATININE 1.7 mg/dL (0.6-1.3); POTASSIUM 4.5 mmol/L (3.5-5.1)
--- NOTE | 2018-12-22 05:44 | NUR ---
RESTED QUIETLY IN BETWEEN TURNS. INCONTINENT OF LARGE AMOUNT OF URINE WITH EACH TURN. MAXIMILIAN CARE GIVEN. GOOD BLOOD RETURN FROM SINGLE LUMEN RIGHT UPPER PICC LINE. HOURLY ROUNDING IN PROGRESS.
[2018-12-22 08:00] VITALS: BP 177/57
--- NOTE | 2018-12-22 09:41 | NUR ---
Nutrition: Pt admitted to Rehab. UTI encephalopathy, CVA. H/o afib, DM. Labs: BG 133, alb 2.2, prealb 12.7. Pt has c. diff. Wt is 153#. Regular diet ordered. RD will order yogurt with BKFSTS for added probiotics. Mild risk at this time.
--- NOTE | 2018-12-22 14:52 | NUR ---
PATIENT UP IN WHEELCHAIR. TO MAIN DINNING AREA FOR MEALS. IN TEAM MEETING DR ROY GAVE AN ORDER TO DISCONT./REMOVE CENTRAL LINE DUE TO NON-USE AND RISK FOR FURTHER INFECTION. CENTRAL LINE WAS REMOVED WITHOUT DIFFICULTIES. CONT. WITH CURRENT PLAN OF CARE.
--- NOTE | 2018-12-22 16:07 | NUR ---
WOUND CARE NOTE: CONSULT RECEIVED FOR OPEN AREA TO SACRUM/COCCYX. PATIENT PRESENTS WITH PARTIAL THICKNESS TISSUE BREAKDOWN TO HER COCCYX. PATIENT'S DAUGHTER STATES THAT THE PATIENT TENDS TO WEAR BRIEFS AT HOME AND HAS BEEN FIGHTING WITH INCONTINENCE FROM BOTH BOWEL AND BLADDER. STATES THE PATIENT HAS BEEN ABLE TO CONTROL HER BOWELS, BUT NOT HER BLADDER. UPON ASSESSMENT, PATIENT WITH WET BRIEF IN PLACE. THIS WAS REMOVED. COCCYX WITH SMALL AREA OF FLAKEY SKIN. DAUGHTER STATES THEY HAVE BEEN USING A NYSTATIN OINTMENT TO THE AREA. AREA APPEARS TO BE IMPROVED WHEN COMPARED TO THE PHOTOGRAPH. AREA IS TENDER TO TOUCH. CLEANSED AREA AND APPLIED ANTIFUNGAL BARRIER OINTMENT. BILATERAL INNER THIGHS AND DISTAL GLUTEAL FOLDS WITH RASH AND SATELITE LESIONS, BELIEVE THIS IF A FUNGAL RASH. AFTER CLEANSING BARRIER OINTMENT WITH ANTIFUNGAL APPLIED. SPOKE WITH PATIENT, DAUGHTER, AND PATIENT'S RN THAT BELIEVE THIS IS A COMBINATION OF URINE/STOOL ON THE SKIN/HEAT/ FUNGAL BREAKDOWN. EDUCATED THAT THE BRIEFS UNFORTUNATELY KEEP THE HEAT AND MOISTURE DIRECTLY ON SKIN AND CAN CAUSE BREAKDOWN, COMMUNICATED UNDERSTANDING. EDUCATED THAT BETWEEN THERAPIES/ AND AT NIGHT IF THE PATIENT COULD BE IN BED WITHOUT THE BRIEF OR PANTS ON TO ALLOW SOME AIR TO FLOW TO THE AREA. COMMUNICATED UNDERSTANDING AND COMPLIED AT THIS TIME. PATIENT ALLOWED US TO TURN HER TO THE RIGHT SIDE WITH WEDGES. EDUCATED THAT IT IS IMPORTANT TO STAY OFF OF THE COCCYX AREA MUCH POSSIBLE TO ALLOW THE TISSUE TO HEAL HERE TOO, COMMUNICATED UNDERSTANDING. RECOMMEND WAFFLE CUSHION IN CHAIR ANTIFUNGAL BARRIER OINTMENT TO PERINEUM, INNER THIGHS, COCCYX, SACRUM BID AND PRN LEAVE BRIEF/PANTS OFF BETWEEN THERAPIES (IF POSSIBLE)/AT NIGHT TURN Q2 HOURS
--- NOTE | 2018-12-22 16:48 | NUR ---
SW met with pt and pt dtr Gris to complete initial assessment, introduce self, and SW role on inpt rehab unit. Pt was very tired so dtr Gris answered most of the questions. Pt has lived alone with pt dtr next door; pt dtr completes pt IADLs and checks on pt as needed. Pt was independent with ADLs. Pt dtr planning to consider in home caregivers if needed; SW to provide resources/referrals. Pt has RW, cane, nebulizer, shower chair. Pt was current with [facility] and has had hx with [facility] and hx with [facility]. SW reviewed team conference summary and plan to reteam next Thursday to assess pt length of stay. Pt dtr in agreement with plan. SW to continue to follow to assist with safe dc planning.
[2018-12-22 20:00] VITALS: BP 180/62
[2018-12-23 03:43] LABS: HEMATOCRIT 27.7 % (37.0-47.0); HEMOGLOBIN 9.2 gm/dL (12.0-15.0); MCH 28.8 pg (26.0-34.0); MCHC 33.1 g/dL (28.0-37.0); MCV 86.9 fL (80.0-100.0); MPV 7.9 fl. (7.2-11.1); RBC 3.19 mil/uL (4.20-5.00); RDW-CV 16.7 % (10.5-14.5); WBC 6.3 thou/uL (4.0-11.0)
[2018-12-23 03:51] LABS: CALCIUM 9.3 mg/dL (8.5-10.1); CREATININE 1.7 mg/dL (0.6-1.3); POTASSIUM 4.5 mmol/L (3.5-5.1)
--- NOTE | 2018-12-23 05:24 | NUR ---
ASSUMED CARES AT 1920. ALERT AND ORIENTED. PLEASANT. ON ISOLATION FOR HX OF CDIFF. DENIED ANY PAIN. HAS INCONTINENT/FUNGAL RASH TO COCCYX AND PERIAREA. FUNGAL CREAM APPLIED. PT TURNED EVERY 2 HOURS AND FOUND TO HAVE URINARY INCONTINENCE EACH TIME. RN DID ALL CARES. SLEPT SOME. CALL LIGHT IN REACH AND BED ALARM ON.
[2018-12-23 06:10] LABS: CALCIUM 9.2 mg/dL (8.5-10.1); CREATININE 1.8 mg/dL (0.6-1.3); PHOSPHORUS* 3.8 mg/dL (2.5-4.9)
[2018-12-23] MEDS ORDERED: [UNRECOGNIZED DRUG - CODE] SUBQ (12:00)
--- NOTE | 2018-12-23 13:59 | NUR ---
PATIENT ALERT AND ORIENTED X 4, UP WITH STAND BY ASSIST. USES WALKER TO AMBULATE TO/FROM BATHROOM. CGA. PATIENT RECEIVED DOSE OF PROCRIT ORDERED WILL RECEIVE EVERY OTHER THURS. DAUGHTER HERE AND DR MAE'S OFFICE WILL REVIEW RENAL LAB DRAWN THIS AM. CONT. WITH PLAN OF CARE AT THIS TIME.
[2018-12-23 20:00] VITALS: BP 174/62
--- NOTE | 2018-12-23 20:00 | NUR ---
INCONTINENT OF URINE IN BRIEF. REMOVED BRIEF AND PERFORMED MAXIMILIAN CARE. LEFT SKIN OPEN TO AIR FOR THE NIGHT. DENIES DISCOMFORT. TOOK MEDICATIONS WHOLE TWO AT A TIME EXCEPT FOR THE CALCIUM WHICH SHE TOOK BY ITSELF. DECLINED OFFER OF A SNACK. CALL LIGHT WITHIN REACH.
--- NOTE | 2018-12-24 05:04 | NUR ---
RESTED QUIETLY IN BETWEEN TURNS. IS CONTINENT OF URINE WITH EACH TURN. MAXIMILIAN CARE GIVEN. ANTIFUNGAL CREAM APPLIED TO BUTTOCKS AND UPPER THIGHS WHERE REDNESS OBSERVED. HOURLY ROUNDING IN PROGRESS.
[2018-12-24 08:25] VITALS: BP 115/73
[2018-12-24 08:32] VITALS: BP 157/48
--- NOTE | 2018-12-24 14:44 | NUR ---
ASSUMED CARE AT 0730. ALERT ORIENTED PLEASANT COOPERATIVE. HX OF OLD CVA IN SEP. UTI SYNCOPE. TRANSFERS WITH SBA G BELT WALKER AMBULATES TO TOILET AND HAS HX OF MACULAR DEGENERATION DECREASED VISION. ALSO HX OF C DIFF IN SPECIAL CONTACT ISOLATION. TAKES MEDS WITHOUT DIFFICULTY FEEDS SELF WITH SET UP. DENIES PAIN OR CONCERNS. PARTICIPATING IN THERAPIES THROUGHOUT THE DAY. USES CALL LIGHT APPROPRIATELY FOR ASSIST. UP IN RECLINER WITH BLES ELEVATED WHEN NOT IN THERAPIES.
[2018-12-24 19:45] VITALS: BP 150/49
--- NOTE | 2018-12-25 03:09 | NUR ---
ASSUMED CARE AT 1930. PATIENT RESTING IN BED AT CHANGE OF SHIFT. TURNS SELF, BUT IS INCONTINENT OF URINE. WEARS PULLUP AND ALSO ON CHUX. PATIENT CAN ASSIST WITH PULLING UP PULLUP, BUT NURSING CHANGED CHUX TWICE THUS FAR THIS SHIFT. SKIN CARE DONE, MOISTURE BARRIER APPLIED. TAKES PILLS WHOLE WITH WATER. TOOK EYE GTTS NOTED ON OCT. NO C/O PAIN. C DIFF ISOLATION CONTINUES. HOURLY ROUNDS CONTINUE. BED ALARM ON. CALL LITE IN REACH.
--- NOTE | 2018-12-25 05:35 | NUR ---
SLEPT MOST OF THE SHIFT. ASSISTED WITH TURNS. INCONTINENT WITH EACH TURN, PULLUPS CHANGED, CHUX CHANGED, SKIN CARE GIVEN. AT 0400 WAS SO SLEEPY THAT TWO NURSES NEEDED TO HELP WITH CHANGING WITH PULLUPS/CHUX AND SKIN CARE. NO C/O PAIN. HOURLY ROUNDS CONTINUE. BED ALARM ON. CALL LITE IN REACH.
[2018-12-25 07:56] VITALS: BP 126/48
--- NOTE | 2018-12-25 16:15 | NUR ---
PT HAS PARTICIPATED WITH THERAPIES AND CALLS FOR ASSIST NEEDED. PT EATS MEALS IN DINNINGROOM AND IS TOLD OR SHOWN WHERE FOODS ARE ON TRAY DUE TO POOR VISION.PT IS CONTINENT OF BOWEL BUT HAS POOR CONTROL OF BLADDER AND USUALLY INCONTINENT. PT IS ABLE TO CHANGE BREIF AND REAPPLY PANTS AND SOCKS.PT DENIES PAIN AND REMAINS ALERT AND ORIENTATED.
[2018-12-25 17:22] VITALS: BP 126/48
[2018-12-25 19:47] VITALS: BP 140/42
--- NOTE | 2018-12-26 01:30 | NUR ---
ASSUMED CARE @ 1939-12/25-SAT.AWAKE IN BED ON HER BACK W/ HOB UP.ISOLATION OBSERVED.BED ALARM PUT ON @ 1939.SLEEPING ALREADY @ 2124 BUT AWAKENED FOR HS MEDS.HEELS OFF BED @ 2239.ON HOURLY ROUNDS.ACADEMIC SPECIALIST DOING ODD HOUR ROUNDS. PULL UPS OFF @ 2199.
--- NOTE | 2018-12-26 05:29 | NUR ---
SLEEPING SINCE 2124 & SLEPT GOOD ALL NIGHT.REFUSED HS SNACK.AWAKENED ONLY TO CHECK IF INC URINE & TO TURN.INC URINE X4.URINE ACCIDENTS X 4.MAXIMILIAN CARE X4 FOLLOWED BY MOISTURE BARRIER CREAM X4 TO RED PERINEAL AREAS.
[2018-12-26 08:01] VITALS: BP 167/61
--- NOTE | 2018-12-26 16:51 | NUR ---
ASSUMMED CARE OF PT AT 0730, PT ALERT AND ORIENTED, FORGETFUL AT TIMES, PT TRANSFERS WITH SBA GB WALKER, AMBULATES TO BATHROOM TO VOID, INCONTINENT IN PULL UP AT TIMES, SMALL BM X2 SOFT UNFORMED, THIS SHIFT, DENIES PAIN, ISOLATION MAINTAINED, TAKING FOOD AND FLUIDS, HAD LUNCH IN DININGROOM, ASSISTED WITH GROOMING, BATHING DRESSING, PT UP IN RECLINER MUCH OF SHIFT, LEGS ELEVATED, HOURLY ROUNDING COMPLETED, ASSESSMENT COMPLETE, WILL CONTINUE TO MONITOR.
[2018-12-26 19:41] VITALS: BP 169/49
--- NOTE | 2018-12-27 01:42 | NUR ---
ASSUMED CARE @ 1924-12/26-THURSDAY.APPEARS SLEEPING ON HER BACK W/ HOB UP.BED ALARM ALREADY ON @ 1924.ISOLATION OBSERVED.AWAKENED @ 2136 FOR HS MEDS. 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
--- NOTE | 2018-12-27 05:23 | NUR ---
SLEEPING SINCE 1924 & SLEPT GOOD ALL NIGHT.REFUSED HS SNACK.AWAKENED ONLY TO CHECK IF INC URINE & TO TURN.DRY @ 0400.INC URINE X4.MAXIMILIAN CARE X4.MOISTURE BARRIER CREAM TO PINK-MAXIMILIAN AREA,GROINS & COCCYX AFTER EACH MAXIMILIAN CARE.
[2018-12-27 08:00] VITALS: BP 163/58
--- NOTE | 2018-12-27 12:31 | NUR ---
ASSUMMED CARE OF PT AT 0730, PT ALERT AND ORIENTED, PT TRANSFERS WITH ASSIST OF 1, GB WALKER, COMPLAINS OF KNEE PAIN, AND KNEE TENDS TO "GIVE OUT" AT TIMES, MEDICATED PER ORDER, SOME INCONTINENCE, WEARS PULL UP AMBULATES TO BATHROOM TO VOID, SMALL BM THIS AM, AMBULATED TO DININGROOM FOR LUNCH, PARTICIPATED IN ALL THERAPIES, HOURLY ROUNDING COMPLETE, ASSESSMENT COMPLETE, WILL CONTINUE MONITORING.
--- NOTE | 2018-12-27 18:26 | NUR ---
PATIENT IS UP IN CHAIR. PATIENT IS UP MINIMAL ASSIST WITH WALKER AND GAITBELT. PATIENT HAS BEEN INCONTINENT OF URINE TODAY. BLADDER SCAN COMPLETED AFTER VOID(UNABLE TO MEASURE) PVR IS 513 ML. PATIENT DENIES ANY BLADDER FULLNESS. PATIENT HAS GOOD APPETITE. PATIENT HAS PAIN TO KNEES, NO MEDICATION NEEDED THIS AFTERNOON. PATIENT DENIES ANY NEEDS AT THIS TIME. CALL LIGHT WITHIN REACH. WILL CONTINUE TO MONITOR.
[2018-12-27 20:00] VITALS: BP 153/56
--- NOTE | 2018-12-28 05:29 | NUR ---
ASSUMED CARE AT 1920. ALERT AND ORIENTED. PLEASANT. REMAINS ON ISOLATION FOR CDIFF. DIFFICULT TO GET ACCURATE PVR DUE TO URINARY INCONTINENCE. BLADDER SCANNED ONCE WAS 217 CC. PT WAS FOUND INCONTINENT OF URINE EVERY 2 HRS. RASH TO PERIAREA IMPROVING. RN DID ALL CARES. NO ISSUES OVERNIGHT. CALL LIGHT IN REACH AND BED ALARM ON.
[2018-12-28 07:00] VITALS: BP 133/51
--- NOTE | 2018-12-28 14:47 | NUR ---
TOOTIE spoke briefly with pt dtr who was calling to provide pt with an update as pt dtr's just had surgery today. No other questions or concerns presented in preparation for team conference at this time. SW to continue to follow to assist with safe dc planning.
--- NOTE | 2018-12-28 16:30 | NUR ---
ASSUMED CARE AT 0730. ALERT ORIENTED PLEASANT COOPERATIVE. HX OF CVA IN SEP. ALSO MACULAR DEGENERATION. TRANSFERS WITH SBA G BELT WALKER. PARTICIPATING IN THERAPIES. TAKES MEDS WITHOUT DIFFICULTY. USES CALL LIGHT APPROPRIATELY FOR ASSIST. INCONTINENT URINE IN PULLUPS. PT. CAN CHANGE OWN PULLUPS AND REMOVE SWEATS. CREAM APPLIED TO LEFT BUTTOCKS AREA PER PT. BLADDER SCAN WAS 198CC AT 1300 AFTER INCONTINENCE OF URINE IN PULLUPS. PT. IS IN ISOLATION FOR HX OF C DIFF. TO DR FOR MEALS FEEDS SELF WITH SET UP DUE TO DECREASED VISION.
--- NOTE | 2018-12-28 18:12 | NUR ---
PT. WAS INCONTINENT LARGE AMT. IN PULLUPS BLADDER SCAN AT 1300 WAS 198CCS. PT. STATES INCONTINENCE ISSUES WERE PRESENT BEFORE CVA IN SEP.
[2018-12-28 20:00] VITALS: BP 162/55
--- NOTE | 2018-12-29 05:14 | NUR ---
ASSUMED CARES AT 1920. ALERT AND ORIENTED. PLEASANT. DENIED ANY PAIN. HAS URINARY INCONTINENCE. RN DOES ALL CARES. MIN ASSIST WITH GAIT BELT AND WALKER. AT MIDNIGHT, PT DID ATTEMPT TO VOID IN BSC. PVR SHOWED 350-400 CC. PT STRAIGHT CATHED BUT ONLY GOT OUT 200 CC. BARRIER CREAM TO MAXIMILIAN AREA AND BUTTOCKS. PT TURNED THROUGHOUT THE NIGHT. SLEPT OFF AND ON OTHERWISE. CALL LIGHT IN REACH AND BED ALARM ON.
[2018-12-29 08:00] VITALS: BP 154/60
--- NOTE | 2018-12-29 15:47 | NUR ---
AM ASSESSMENT AND VITAL SIGNS CPMPLETED DOCUMENTED. PT HAS BEEN PLEASANT AND COOPERATIVE, PARTICIPATES WITH ALL THERAPIES. PT HAS POOR VISION AND HEARING LOSS BUT IS ABLE TO FEED HERSELF ONCE TRAY IS SET UP. MAXIMILIAN CARE AND BRIEF CHANGES DONE MOSTLY BY NURSING. ISOLATION FOR RECENT C DIFF CONTINUES. OFF LOADING BRACE ORDERED FROM CENTRIFUGAL CHILLER TECHNICIAN AND THEY WILL BE HERE IN THE AM. FALL PRECAUTIONS AND HOURLY ROUNDING CONTINUE.
--- NOTE | 2018-12-29 17:30 | NUR ---
SW called and spoke with pt dtr to review team conference summary and plan for pt to remain on inpt rehab unit at least one more week with team to reassess pt length of stay during team conference next Friday 01/05. Pt dtr aware and in agreement with plan. Pt dtr explained that pt dtr still in hospital post surgery but hopeful to dc home soon. SW to continue to follow to assist with safe dc planning.
[2018-12-29 20:00] VITALS: BP 160/51
--- NOTE | 2018-12-29 23:10 | NUR ---
ASSUMED CARE AT 1930. PATIENT RESTING IN RECLINER UNTIL AROUND 2029. UP TO TOILET, VOIDED, NURSING CHANGED BRIEF. INCONTINENT OF URINE, STATES THIS HAPPENED PRIOR TO CVA. UP WITH SBA, GAIT BELT, WALKER. TAKES PILLS WHOLE WITH WATER. BED FLAT PER HER REQUEST. AF MOISTURE BARRIER APPLIED. NO C/O PAIN. HOURLY ROUNDS CONTINUE. TQ2H. CALL LITE IN REACH. BED ALARM ON.
--- NOTE | 2018-12-30 05:34 | NUR ---
RESTED QUIETLY MOST OF THE NIGHT. UP TO VOID THREE TIMES PER BSC. UP WITH LIFTING ASSIST, GAIT BELT, WALKER, CUEING. INCONTINENT LARGE AMOUNT INTO BRIEF BEFORE GETTING OOB TO VOID EACH TIME. VOIDED VERY LITTLE ON BSC. ABLE TO POSITION HERSELF TO THE WITHOUT DIFF. NO C/O PAIN. HOURLY ROUNDS CONTINUE. BED ALARM ON. CALL LITE IN REACH.
[2018-12-30 08:00] VITALS: BP 161/55
--- NOTE | 2018-12-30 13:13 | NUR ---
WOUND CARE NOTE: REASSESSMENT OF ULCERATION TO COCCYX. WOUND WITH THIN, FRIABLE EPITHELIUM TISSUE COVERING WOUND BED. WOUND IS HEALING VERY WELL. RECOMMEND LIMIT TIME IN BRIEF BARRIER OINTMENT BID AND PRN INCONTINENCE WAFFLE CUSHION WHEN IN CHAIR SIDE TO SIDE TURNING WHEN IN BED LIMIT HOB <30 DEGREES
--- NOTE | 2018-12-30 18:18 | NUR ---
PT PLEASANT AND COOPERATIVE, MAKING GRADUAL PROGRESS WITH THERAPIES. DR SMITH SAW PT TODAY AND ORDERED A CAM BOOT AND PT IS NOW 25% WT BEARING. THERE ARE A TOTAL OF 10 PUNCTURES AND INCISION SITES, ALL ARE WELL APPROXIMATED WITH SUTURES. HOURLY ROUNDING AND FALL PRECAUTIONS CONTINUE.
[2018-12-30 20:08] VITALS: BP 150/51
--- NOTE | 2018-12-31 01:39 | NUR ---
ASSUMED CARE @ 1916-12/30-.SITS IN RECLINER W/ LE'S UP SLEEPING.ISOLATION OBSERVED.HEELS OFF BED @ 2206.BED ALARM PUT ON ALSO @ 2206.WEARS PULL UPS. HAS VISUAL PROBLEMS.[place] ALSO BUT DOES NOT WEAR HEARING AIDS.ON HOURLY ROUNDS. 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
--- NOTE | 2018-12-31 05:17 | NUR ---
SLEPT EARLY SINCE 191 & SLEPT GOOD ALL NIGHT.AWAKENED ONLY TO TURN & TO CHECK IF INC.URINE.USED [facility] XC1-NO VOID.REFUSED HS SNACK.INC URINE X3.URINE ACCIDENT X3.MAXIMILIAN CARE X3.ANTIFUNGAL CREAM TO PINK GROINS & COCCYX AFTER EACH MAXIMILIAN CARE X3 ALSO.
[2018-12-31 11:18] VITALS: BP 161/47
--- NOTE | 2018-12-31 18:53 | NUR ---
PATIENT ALERT AND ORIENTED X 4. DIFFICULTIES SEEING, WILL ASK FOR YOU TO REPEAT WHAT IS SAID. AMBULATING TO DINNING AREA WITH SBA. NO FURTHER COMPLAINTS.
[2018-12-31 19:15] VITALS: BP 157/56
--- NOTE | 2018-12-31 20:45 | NUR ---
SITTING UP IN RECLINER WITH LEGS ELEVATED. TOOK MEDICATIONS WHOLE TWO AT A TIME WITH WATER. DENIES DISCOMFORT. SNACK PROVIDED. TRANSFERS WITH SBA, GAITBELT, WALKER, CUEING DUE TO POOR VISION.
--- NOTE | 2019-01-01 06:48 | NUR ---
RESTED QUIETLY. INCONTINENT OR URINE X 3. MAXIMILIAN CARE GIVEN. ANTIFUNGAL CREAM APPLIED TO BUTTOCKS AND MAXIMILIAN AREA. HOURLY ROUNDING IN PROGRESS.
[2019-01-01 08:00] VITALS: BP 145/95
--- NOTE | 2019-01-01 18:39 | NUR ---
PT STABLE AND WITHOUT COMPLAINTS TODAY, FALL PRECAUTIONS AND HOURLY ROUNDING CONTINUE.
[2019-01-01 19:15] VITALS: BP 144/51
--- NOTE | 2019-01-01 20:30 | NUR ---
SITTING UP IN RECLINER. DENIES DISCOMFORT. AMBULATED TO THE BATHROOM WITH SBA, GAITBELT, WALKER. HAD A SMALL GREEN FORMED BM. ASSISTED WITH MAXIMILIAN CARE AND CLOTHING ADJUSTMENTS. DECLINED OFFER OF A SNACK.
--- NOTE | 2019-01-02 05:50 | NUR ---
INCONTINENT OF URINE X TWO DURING THE NIGHT. MAXIMILIAN CARE GIVEN. ANTIFUNGAL CREAM APPLIED TO BUTTOCKS AND UPPER THIGHS. RESTED SOUNDLY. TURNS SELF IN BED. HOURLY ROUNDING IN PROGRESS.
[2019-01-02 06:34] VITALS: BP 132/52
[2019-01-02 08:00] VITALS: BP 132/52
[2019-01-02 20:00] VITALS: BP 124/61
[2019-01-03 04:32] LABS: CALCIUM 8.8 mg/dL (8.5-10.1); CREATININE 2.2 mg/dL (0.6-1.3); HEMOGLOBIN 9.5 gm/dL (12.0-15.0); MAGNESIUM 1.7 mg/dL (1.8-2.4); MCH 28.2 pg (26.0-34.0); MCHC 32.7 g/dL (28.0-37.0); MCV 86.3 fL (80.0-100.0); MPV 7.9 fl. (7.2-11.1); RBC 3.35 mil/uL (4.20-5.00); RDW-CV 17.1 % (10.5-14.5); WBC 7.3 thou/uL (4.0-11.0)
--- NOTE | 2019-01-03 05:25 | NUR ---
ASSUMED CARE AT 1930. PATIENT RESTING IN RECLINER UNTIL HS. UP TO TOILET, GAIT BELT, WALKER. NEEDS HELP WITH PERICARE AND CLOTHING ADJUSTMENTS. TAKES PILLS WHOLE WITH WATER. TURNS SELF. INCONTINENT OF URINE THOUGH NIGHT, SKIN CARE DONE, AF MOISTURE BARRIER APPLIED TO BUTTOCKS AND THIGHS. NO C/O PAIN. KNEE BRACE REMOVED AT HS. TURNS SELF. BED ALARM ON. CALL LITE IN REACH.
[2019-01-03 08:06] VITALS: BP 161/61
--- NOTE | 2019-01-03 12:31 | NUR ---
PROGRESS NOTE FOR 12/22/18-12/27/18 INADVERTANTLY COMPLETED 01/03/19 AND SUBSEQENTLY DELETED. HOWEVER THIS PROGRESS SUMMARY CAN BE VIEWED VIA PCI->ASSESSMENT->PT PROGRESS NOTE. JIL FINCH, MPT
[2019-01-03 20:00] VITALS: BP 151/59
[2019-01-04 04:31] LABS: CALCIUM 8.9 mg/dL (8.5-10.1); CREATININE 2.1 mg/dL (0.6-1.3); POTASSIUM 4.2 mmol/L (3.5-5.1)
--- NOTE | 2019-01-04 05:16 | NUR ---
Assumed patient care at 1900. Patient alert and oriented times four. No complaints of pain or discomfort noted. Able to manage upper and lower body dressing with mod assisst of one. manages toileting needs independently. Ambulates wiwth assiss of a walker, knee brace and gait belt. home health lpn and hourly rounding completed as documented.
[2019-01-04 07:36] VITALS: BP 165/59
--- NOTE | 2019-01-04 15:35 | NUR ---
SW called and spoke with pt dtr Gris in preparation for team conference tomorrow. Pt dtr expressed that she feels pt is improving but pt dtr also thinks pt needs more time on inpt rehab. Pt dtr also concerned with future frequent infections and would like prevention efforts at dc. SW mentioned possibility that pt will be ready to dc soon given therapy reports and team's decision on pt progress an if there would be any more time necessary to improve further; SW mentioned team will determine this tomorrow during team conference. Pt dtr mentioned that the meals are prepared and other assist with IADLs as was the situation prior. SW to continue to follow to assist with safe dc planning.
--- NOTE | 2019-01-04 18:31 | NUR ---
PATIENT HAS BEEN A/O X 4 THIS SHIFT. HAS DENIED ANY PAIN. PATIENT UP WITH SBA, GB AND WALKER WITH RIGHT KNEE BRACE IN PLACE. PATIENT STATES HAVING DIZZINESS WHEN CHANGING POSITIONS. PATIENT WORKED WITH ALL THERAPIES THIS SHIFT. PATIENT SEEN BY PT AND COMPLETED EPPLY MANEUVERS. PATIENT GIVEN ATIVAN PER ORDERS TO HELP WITH DIZZINESS. PATIENT UP IN CHAIR IN BETWEEN THERAPY SESSIONS. PATIENT UP TO BATHROOM WITH SBA, GB, AND WALKER. PATIENT ABLE TO CHANGE BRIEFS, BUT NEEDS ASSIST WITH CLOTHING MANAGEMENT. PATIETN TAKES PILLS WHOLE WITH WATER. APPETITE FAIR. PATIENT'S DAUGHTER AT BEDSIDE THIS EVENING, UPDATED ON PATIENT'S PLAN OF CARE. REMAINS IN SPECIAL CONTACT ISOLATION FOR C DIFF. BED/CHAIR ALARMS UTILIZED. HOULRY ROUNDING MAINTAINED. CALL LIGHT WITHIN REACH. WILL CONTINUE WITH PLAN OF CARE.
[2019-01-04 19:00] VITALS: BP 136/56
--- NOTE | 2019-01-05 05:23 | NUR ---
ASSUMED PATIENT CARE AT 1900. PATIENT ALERT AND ORIENTED TIMES FOUR. RIGHT LEG WITH EDEMA NOTED WHICH THE PATIENT STATES "IT IS JUST HOW I AM MADE" MINOR COMPLAINTS OF PAIN, CONTROLLED WITH ORAL MEDICATION. PATIENT WAS IN BED UPON ARRIVAL, DID NOT WITNESS AMBULATION. BED MOBILITY IS INDEPENDENT. BANKRUPTCY LEGAL ASSISTANT AND HOURLY ROUNDING COMPLETED DOCUMENTED.
--- NOTE | 2019-01-05 05:40 | NUR ---
ASSUMED PATIENT CARE AT 1900. PATIENT ALERT AND ORIENTED TIMES FOUR. NO COMPLAINTS OF PAIN OR DISCOMFORT NOTED. TRANSFERRED WELL TO BED AND AMBULATED WELL TO THE RESTROOM. NEIGHBORHOOD PLANNER AND HOURLY ROUNDING COMPLETED CHARTED
[2019-01-05 08:00] VITALS: BP 175/58
--- NOTE | 2019-01-05 11:32 | NUR ---
AM ASSESSMENT AND VITAL SIGNS COMPLETED DOCUMENTED. ISOLATION FOR CDIFF CONTINUES. PT IS USUALLY INCONTINENT OF URINE BUT IS ABLE TO DO HER OWN MAXIMILIAN CARE AND CHANGE THE PULL UP WITH MIN ASSIST. PT IS AMBULATORY WITH KNEE BRACE AND WALKER. NO COMPLAINTS OR CONCERNS VOICED THIS AM. HOURLY ROUNDING AND FALL PRECAUTIONS CONTINUE.
--- NOTE | 2019-01-05 17:11 | NUR ---
SW met with pt dtr to review team conference summary and plan for pt to remain on inpt rehab unit one more week with team to reassess pt length of stay during team conference next Friday 01/12. Pt dtr in agreement with plan. SW to continue to follow to assist with safe dc planning.
[2019-01-05 19:00] VITALS: BP 167/63
[2019-01-06 02:04] LABS: URINE BILIRUBIN NEGATIVE (Negative); URINE BLOOD 3+ (Negative); URINE CLARITY CLEAR; URINE COLOR YELLOW; URINE GLUCOSE-RANDOM TRACE (Negative); URINE KETONES NEGATIVE (Negative); URINE NITRITE-REFLEX NEGATIVE (Negative); URINE PROTEIN 1+ (Negative); URINE UROBILINOGEN 0.2 E.U./dl (0.2-1.0)
[2019-01-06 02:14] LABS: URINE LEUKOCYTES-REFLEX 3+ (Negative)
[2019-01-06 02:16] LABS: BACTERIA-REFLEX >30 Many /HPF (None Seen); CASTS None Seen /LPF (None Seen); CRYSTALS None Seen /LPF (None Seen); MUCUS 0-3 Light strn/LPF (None Seen); SQUAMOUS 0-3 Few /LPF (0-3); URINE RBC >20 Many /HPF (0-2); URINE WBC-REFLEX >25 Many /HPF (0-5); WBC CLUMPS Moderate (None Seen)
[2019-01-06 04:09] LABS: HEMATOCRIT 28.8 % (37.0-47.0); HEMOGLOBIN 9.6 gm/dL (12.0-15.0); MCH 28.6 pg (26.0-34.0); MCHC 33.4 g/dL (28.0-37.0); MCV 85.6 fL (80.0-100.0); MPV 7.8 fl. (7.2-11.1); RBC 3.36 mil/uL (4.20-5.00); RDW-CV 16.9 % (10.5-14.5); WBC 7.7 thou/uL (4.0-11.0)
[2019-01-06 04:28] LABS: CALCIUM 8.6 mg/dL (8.5-10.1); CREATININE 2.1 mg/dL (0.6-1.3); MAGNESIUM 1.8 mg/dL (1.8-2.4); POTASSIUM 4.2 mmol/L (3.5-5.1)
--- NOTE | 2019-01-06 07:17 | NUR ---
ASSUMED CARES AT 1920. ALERT AND ORIENTED. PLEASANT. DENIED ANY PAIN. MIN ASSIST WITH GAIT BELT AND WALKER. DID CALL TO USE TOILET AT TIMES BUT STILL REMAINED INCONTINENT OF URINE. WEARS PULLUPS. AT 0130, BLADDER SCAN SHOWED 594 CC AFTER PT VOIDED. PT STRAIGHT CATHED AND HAD 250 CC CLOUDY, STRAW COLORED AND BLOOD TINGED URINE. URINE SAMPLE SENT TO LAB. RESULTS WERE REVIEWED WITH DR ROY. REPORTED TO KASSANDRA MASCORRO WHO WILL F/U WITH HOSPITALIST TODAY.
[2019-01-06 07:45] VITALS: BP 152/54
--- NOTE | 2019-01-06 16:14 | NUR ---
AM ASSESSMENT AND VITAL SIGNS COMPLETED DOCUMENTED. PT HAS BEEN STARTED ON ORAL ANTIBIOTICS.
[2019-01-06 19:22] VITALS: BP 105/68
[2019-01-06 21:00] VITALS: BP 162/53
--- NOTE | 2019-01-07 05:04 | NUR ---
ASSUMED CARE OF PT AT 1900 PT ALERT AND ORIENTED VSS STABLE. PT PVR 474 AND PT C/O NAUSEA THAT HAD STARTED AT LUNCH. NOTIFIED DR ROY OF PVR AND NAUSEA ORDERS RECIEVED FOR X1 ZOFRAN AND Q4H S/C. WILL CONTINUE PLAN OF CARE.
--- NOTE | 2019-01-07 06:52 | NUR ---
WOUND CARE NOTE: REASSESSMENT OF SACRAL/COCCYX PATIENT STILL WITH PARTIAL THICKNESS ULCERATION TO THE COCCYX AREA, HEALING. DRY, PINK. APPROXIMATELY 0.5X0.5X0.1. APPLIED LOTION TO AREA. RECOMMEND LIMIT LAYERS OF LINEN UNDER PATIENT BARRIER OINTMENT BID AND PRN INCONTINENCE CONTINUE WITH WAFFLE CUSHION WHEN IN CHAIR SIDE TO SIDE TURNING WHEN IN BED
[2019-01-07 07:15] VITALS: BP 154/55
--- NOTE | 2019-01-07 13:20 | NUR ---
PHARMACY RECEIVED A PHONE CALL FROM INFECTIOUS DISEASE TO ORDER METHENAMINE FOR THE PATIENT. THE PATIENT HAS RECURRENT AND RESISTENT UTIs WITH ADRs FROM THE ANTIBIOTICS. THE PATIENT HAS BEEN ON ANTIBIOTICS FOR THREE WEEKS AND ID WANTS TO TRY AND GET OFF OF THEM. PHARMACY CALLED AND GOT OKAY TO ORDER MEDICATION FOR THE PATIENT. THE MEDICATION WAS ORDERED AND WILL ARRIVE NEXT DAY TO START. THANK YOU.
--- NOTE | 2019-01-07 17:40 | NUR ---
PT A&Ox4. VITALS STABLE. PT EXPERIENCED SOME NAUSEA AND VOMITING ABOUT 0900 WELL 1500. ZOFRAN ODT GIVEN, PT STATES IT DECREASES NAUSEA. UP WITH 1 MIN ASSIST USING GAITBELT AND WALKER. STRAIGHT CATH PT ONE TIME ABOUT 1700 WITH BEGINNING RESIDULE BEING 388 TO 81 AFTER CATH. DAUGHTER IN ROOM. SPECIAL CONTACT PRECAUTIONS MAINTAINED. FALL PRECAUTIONS IN PLACE. CALL LIGHT WITHIN REACH. WILL CONTINUE MONITORING.
[2019-01-07 20:50] VITALS: BP 165/58
[2019-01-08 04:36] LABS: ABSOLUTE EOSINOPHILS 0.1 thou/uL (0.0-0.7); ABSOLUTE LYMPHOCYTES 1.8 thou/uL (0.8-5.3); ABSOLUTE MONOCYTES 0.5 thou/uL (0.0-1.2); ABSOLUTE NEUTROPHILS 3.7 thou/uL (1.6-8.1); BASOPHILS 0.8 %; HEMOGLOBIN 9.1 gm/dL (12.0-15.0); LYMPHOCYTES 28.9 %; MCH 28.7 pg (26.0-34.0); MCHC 33.6 g/dL (28.0-37.0); MCV 85.3 fL (80.0-100.0); MONOCYTES 8.7 %; MPV 7.9 fl. (7.2-11.1); NUCLEATED RBCS 0 /100WBC; PLATELET COUNT* 203 thou/uL (150-400); POLYS 59.6 %; RBC 3.17 mil/uL (4.20-5.00); RDW-CV 16.9 % (10.5-14.5); WBC 6.1 thou/uL (4.0-11.0)
[2019-01-08 04:50] LABS: CALCIUM 8.6 mg/dL (8.5-10.1); POTASSIUM 4.3 mmol/L (3.5-5.1)
--- NOTE | 2019-01-08 05:36 | NUR ---
ASSUMED CARE AT 1920. ALERT AND ORIENTED. ISOLATION FOR CDIFF. HAD SLIGHT NAUSEA WHEN TAKING PILLS BUT WAS ABLE TO GET THEM DOWN. NO FURTHER NAUSEA OR NEED FOR ZOFRAN. ORDER FROM UROLOGY TO PLACE BASSETT CATHETER. CLARIFIED WITH DR MANUELA MARK TO PROCEED WITH ORDER. PRIOR TO BASSETT PLACEMENT, PT HAD URINARY INCONTINENCE IN BED. URINE WAS BLOOD TINGED ON PAD. BASSETT CATHETER PLACED AND HEMATURIA WITH SEDIMENT NOTED. FUNGAL CREAM APPLIED TO MAXIMILIAN AREA REDNESS. MIN ASSIST WITH GAIT BELT AND WALKER. TURNS SELF IN BED. SLEPT MOST OF THE NIGHT. CALL LIGHT IN REACH AND BED ALARM ON. WILL CONTINUE TO MONITOR.
[2019-01-08 07:15] VITALS: BP 145/45
--- NOTE | 2019-01-08 16:12 | NUR ---
PATIENT ALERT AND ORIENTED X 3, UP IN RECLINER. ASSIST MIN OF ONE. BLOOD TINGED URINE IN BASSETT BAG. DRAINED AND NOW MORE CLEAR YELLOW. ASPIRIN AND ANTIPLATELETTS ON HOLD TIL THURSDAY. DAUGHTER HERE EARLIER. PATIENT IS WITHOUT COMPLAINTS OF PAIN OR DISCOMFORT. NO SIGN OF DISTRESS AT THIS TIME.
[2019-01-08 21:00] VITALS: BP 152/55
--- NOTE | 2019-01-08 22:10 | NUR ---
SPOKE WITH DR DUMAS ABOUT URINE CX RESULTS. PT AFEBRILE, DENIES ANY PAIN. STILL SLIGHT NAUSEA AT TIMES. URINE HAS CLEARED AND IS NOW YELLOW. NO FURTHER HEMATURIA. PER DR DUMAS, NO ABX TREATMENT AT THIS TIME. WILL CONTINUE TO MONITOR.
--- NOTE | 2019-01-09 05:10 | NUR ---
ASSUMED CARES AT 1920. ALERT AND ORIENTED. GETS NAUSEAUS WHEN TAKING PILLS. NO EMESIS. BASSETT CATHETER DD YELLOW URINE. MIN ASSIST WITH GAIT BELT AND WALKER. NO ISSUES OVERNIGHT. CALL LIGHT IN REACH AND BED ALARM ON.
[2019-01-09 08:00] VITALS: BP 149/51
--- NOTE | 2019-01-09 13:05 | NUR ---
PATIENT ALERT AND ORIENTED X 4, SEEN BY UROLOGIST, NO MORE UA'S UNLESS PATIENT IS SYMPTOMATIC. PATIENT IS UP WITH SBA, SHE CAME TO DINNING AREA. NO DISTRESS, CONT. WITH PLAN OF CARE.
[2019-01-09 13:56] LABS: CALCIUM 8.8 mg/dL (8.5-10.1); CREATININE 2.2 mg/dL (0.6-1.3); POTASSIUM 4.8 mmol/L (3.5-5.1)
--- NOTE | 2019-01-09 16:16 | NUR ---
PATIENT RESTING IN RECLINER, PO INTAKE IMPROVED FROM YESTERDAY. NO FURTHER COMPLAINTS OF NAUSEA. CONT. WITH CURRENT PLAN OF CARE.
[2019-01-09 19:00] VITALS: BP 147/54
--- NOTE | 2019-01-09 23:03 | NUR ---
ASSUMED CARE AT 1930. PATIENT RESTED IN RECLINER UNTIL AROUND 1999. UP WITH GAIT BELT, WALKER. TAKES PILLS ONE AT A TIME, HAS PROBLEMS WITH THEM AND REFUSED CALCIUM BECAUSE IT "CHOKED" HER DESPITE BEING BROKEN IN HALF. TURNS SELF. BASSETT DRAINING SOCORRO URINE PER DD. APAP GIVEN BY DAY SHIFT. HOURLY ROUNDS CONTINUE. BED ALARM ON. CALL LITE IN REACH.
--- NOTE | 2019-01-09 23:25 | CON ---
[address] [address] CONSULTATION Name: ALESSIA CRAIG Room: [address] ADM IN M.R.#: [id number] Admission: 12/21/18 Attend Phys: Eris Skelton MD Discharge: Date of : 32 Report #: [id number] THIS REPORT FOR: //name// CC: Blake Skelton DATE OF SERVICE: 01/07/2019 CONSULTATION: Infectious Diseases. HISTORY OF PRESENT ILLNESS:Ms Craig is an 88-year-old white female who was transferred from acute care to acute rehabilitation. The patient has a history of chronic positive urine cultures usually with resistant bacteria. Infectious Disease consultation was requested to assist with ongoing management. The patient suffers from chronic incontinence. She says she mostly dribbles all day long. Occasionally in the toilet she will have some increased volume of urine, but for the most part has no control. She did have a Vora catheter for a long period of time. She again has a Vora catheter during this hospitalization. The patient was initially admitted this time to [facility] on 12/12/2018 for a fall from which she could not stand up, confusion, and was noted to have E. coli in the urine with extended spectrum beta lactamase. She had been under treatment by Dr. Mosher of [facility] for this organism. She was home on ertapenem, I believe for about 3 or 4 days when she came to the hospital. The patient completed an additional 10 days of ertapenem. She was diagnosed with E. coli in the urine and C. difficile with colitis in the stool. She had been on prophylactic antibiotic in the past including Macrobid and Bactrim. At the end of her IV antibiotics, she was put on prophylactic Bactrim 1/2 tablet at bedtime. In rehab, she again has pyuria. PAST MEDICAL HISTORY: Significant for diabetes with hypertension, atrial fibrillation. Past history of stroke. Breast cancer treated with lumpectomy, radiation and chemotherapy. She has a chronically elevated creatinine. ALLERGIES: She has history of allergy to PENICILLIN and SULFA DRUGS. FAMILY HISTORY: Noncontributory. SOCIAL HISTORY: The patient is . She was living on her own with help from her daughter prior to coming to the hospital on 12/12/2018. No history of tobacco, alcohol nor drugs. REVIEW OF SYSTEMS: At this time, the patient says that she is comfortable, not really having any pain. She has no problem with the Vora catheter. She denies any head, neck, chest symptoms. Her diarrhea she says is pretty much resolved and she denies abdominal pain. She notes some [place] [address] CONSULTATION Name: ALESSIA CRAIG Room: [address] IN ..#: [id number] Admission: 12/21/18 Attend Phys: Eris Skelton MD Discharge: Date of : 32 Report #: [id number] intermittent catheterization. She is not having any pain in her extremities. PHYSICAL EXAMINATION: GENERAL: The patient appears alert, oriented, comfortable, not in any distress. VITAL SIGNS: Normal. The patient is afebrile. SKIN: Shows no rash, no lesion. ENT: Negative. HEART: Sounds are normal. LUNGS: Clear. ABDOMEN: Belly is soft, not tender. Vora catheter demonstrates clear urine. EXTREMITIES: Unremarkable. LABORATORY DATA: White count is 7.7, hemoglobin 9.6, platelets 197,000. Electrolytes are normal. BUN 41, creatinine 2.1. Urinalysis shows many white cells. Cultures are pending. ASSESSMENT AND PLAN: I assume the patient will probably have another positive urine culture. She represents a condition called asymptomatic bacteriuria. Apparently with or without a Vora catheter, she continues to have some pyuria and bacteriuria. At this time, she does not demonstrate any signs of infection. She does not have any fevers, chills, sweats. She is having no significant pain or urinary obstruction symptoms. Her white count is normal. The general consensus on asymptomatic bacteriuria has been shifting away from prophylactic antibiotics. It is recommended not to use antibiotics unless there is evidence of infection. This patient demonstrates many of the complications of ongoing antibiotic therapy including selection of resistant bacteria, developing antibiotic allergies, and C. difficile colitis. The patient has had all 3 of these. She never really gives a very good history for urinary tract infection. She was admitted due to a fall, and her mental status, I believe returned back to baseline fairly quickly. Sometimes depressed mental status can be the only sign of urinary tract infection in an elderly patient, but her rapid return to baseline suggests that this was something else besides sepsis. At this time, I have discontinued the trimethoprim sulfa. I do not think the patient should be on prophylactic antibiotics for prophylaxis against urinary tract infection. In addition, her chart notes allergy to SULFA. I think we may want to consider urinary antisepsis with something like Mandelamine for long-term use. This works better in patients that do not have continuous catheter drainage as the Mandelamine can take up to 20 minutes to break down from the prodrug to the active drug in the urine. The patient may just be better off with chronic incontinence and using pads. I am not sure if she is going to be a candidate for returning home. I am not sure if she is able to managing a Vora catheter at home alone, so she may need to consider more assistance. We need to watch for signs of urinary tract infection including [address] [place] [place] [address] CONSULTATION Name: ALESSIA CRAIG Zunilda Room: [address] IN .R.#: [id number] Admission: 12/21/18 Attend Phys: Eris Skelton MD Discharge: Date of : 32 Report #: [id number] pain, fever, leukocytosis and if so, would need to initiate treatment. Based on the most recent urinary cultures, this will probably require meropenem or ertapenem again. We may be able to modify this based on the results of the culture currently incubating. I appreciate the opportunity offer input in the care of this complex patient. I will be happy to follow her through the weekend while Dr. Madera returns on Thursday. Thank you for this consultation. <ELECTRONICALLY SIGNED> By: Blake Wise MD 01/09/19 2325 [id number] 2023Blake Wise MD /nt
--- NOTE | 2019-01-10 06:29 | NUR ---
SLEPT MOST OF THE NIGHT. HAD LARGE BM PER BED PRATER AROUND 0615. NURSING DID TOTAL SKIN CARE. PATIENT TRIES TO GET PULLUPS BACK UP, BUT NEEDS HELP SHE IS LYING IN BED. NO C/O PAIN. BASSETT DRAINED SOCORRO URINE. HOURLY ROUNDS CONTINUE. BED ALARM ON. CALL LITE IN REACH.
--- NOTE | 2019-01-10 06:32 | NUR ---
SLEPT MOST OF THE NIGHT. BASSETT DRAINS SOCORRO URINE. PATIENT TURNS SELF. NO C/O PAIN. HOURLY ROUNDS CONTINUE. BED ALARM ON. CALL LITE IN REACH.
[2019-01-10 08:00] VITALS: BP 152/50
[2019-01-10 11:28] LABS: CALCIUM 8.5 mg/dL (8.5-10.1); CREATININE 2.1 mg/dL (0.6-1.3); POTASSIUM 4.4 mmol/L (3.5-5.1)
--- NOTE | 2019-01-10 14:38 | NUR ---
ASSUMED CARE AT 0730. ALERT ORIENTED PLEASANT COOPERATIVE. HX OF CVA CHRONIC UTI. TRANSFERS WITH SBA Micheal FONSECA WALKER HAS MACULAR DEGENERATION HEARING LOSS. USES CALL LIGHT APPROPRIATELY FOR ASSIST. FEEDS SELF WITH SET UP NO NAUSEA TODAY. DID STATE SLIGHT QUEASINESS THIS A.M. WHEN ASKED. PARTICIPATING IN THERAPIES THROUGHOUT THE DAY. DENIES PAIN OR REQUESTS. IN SPECIAL CONTACT ISOLATION HX OF C DIFF. DR. ANJU PLASENCIA ORDERED LAB AND RENAL ULTRASOUND.
[2019-01-10 20:00] VITALS: BP 104/67; BP 153/61
--- NOTE | 2019-01-11 05:20 | NUR ---
ASSUMED CARES AT 1920. ALERT AND ORIENTED X 4. PLEASANT. REFUSED LARGE CALCIUM PILL IT CAUSES HER TO GAG. DENIED ANY PAIN. BASSETT CATHETER DD YELLOW URINE. SUPPOSITORY GIVEN. ASSISTED PT WITH MANUAL REMOVAL WELL. HAD SMALL HARD BM. NO C/O NAUSEA OR VOMITING. SLEPT MOST OF THE NIGHT. CALL LIGHT IN REACH AND BED ALARM ON.
[2019-01-11 07:15] VITALS: BP 135/55
--- NOTE | 2019-01-11 13:44 | NUR ---
ASSUMED CARE AT 0730. ALERT ORIENTED PLEASANT COOPERATIVE. HX OF CVA AND UTI HAS BASSETT CATHETER TO DD BAG WITH SOCORRO URINE. 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 ALSO HEARING LOSS. USES CALL LIGHT APPROPRIATELY FOR ASSISTANCE. IN SPECIAL CONTACT ISOLATION FOR HX OF C DIFF. PT. HAD A SMALL HARD FORMED BM LAST EVENING AFTER SUPPOSITORY. DENIES NAUSEA TOOK MEDS WITHOUT DIFFICULTY 1-2 AT A TIME.. PARTICIPATING IN THERAPIES THROUGHOUT THE DAY. TO FOR MEALS.
[2019-01-11 20:00] VITALS: BP 127/46
[2019-01-12 05:10] LABS: ALBUMIN 2.6 g/dL (3.4-5.0); CALCIUM 8.6 mg/dL (8.5-10.1); CREATININE 1.9 mg/dL (0.6-1.3); POTASSIUM 4.3 mmol/L (3.5-5.1); TOTAL BILIRUBIN 0.3 mg/dL (<0.1-1.0)
--- NOTE | 2019-01-12 05:11 | NUR ---
ASSUMED CARES AT 1920. ALERT AND ORIENTED PLEASANT. DENIED ANY NAUSEA OR VOMITING. SUPPOSITORY GIVEN. HAD SMALL BM. BASSETT CATHETER DD YELLOW URINE WITH SLIGHT BLOOD TINGED. PT SLEPT WELL. NO ISSUES OVERNIGHT. CALL LIGHT IN REACH AND BED ALARM ON.
[2019-01-12 08:01] VITALS: BP 137/48
--- NOTE | 2019-01-12 13:20 | CON ---
[address] [address] CONSULTATION Name: ALESSIA PRESSLEY Room: [facility] ADM IN M.R.#: [id number] Admission: 12/21/18 Attend Phys: Eris Skelton MD Discharge: Date of : 32 Report #: [id number] THIS REPORT FOR: //name// CC: Blake Nazario Eris Skelton CHIEF COMPLAINT AND HISTORY OF PRESENT ILLNESS: UTI, consult for toenail debridement. She is a type 2 diabetic, well known to me in my private practice. She presents to my office for periodic toenail debridement. PHYSICAL EXAMINATION: Toenails are elongated, dystrophic, thick and painful to palpation. No paronychia noted. The feet are warm with faintly palpable DP and PT pulses. No signs of acute vascular embarrassment. IMPRESSION: Type 2 diabetes mellitus, onychomycosis with pain. PLAN: Toenails were manually mechanically debrided. <ELECTRONICALLY SIGNED> By: Daquan Mcallister DPM 01/12/19 1320 1209 [id number] Mcallister DPM /nt
--- NOTE | 2019-01-12 14:09 | NUR ---
PATIENT IS ALERT AND ORIENTED X 4, UP WITH SBA, PATIENT AMBULATES WITH A ROLLING WALKER. PATIENT WAS TAKEN TO THE TOILET AND ASKED TO VOID, SHE HAD SOME INCONT. OF URINE IN HER BRIEF. PATIENT WAS BLADDER SCANNED AND SHE HAD [address] WILL [address]CUSS [address] ROY WHEN HE GETS HER.
--- NOTE | 2019-01-12 17:13 | NUR ---
SW met with pt and pt dtr to review team conference summary and plan for pt to dc home alone with dtr support on Thursday. Pt to move to 330 by tomorrow and possibly for mod I trial. Pt and pt dtr okay with plan, pt dtr explained pt was a little nervous about dc but that trialing mod I in the TLA may assist with pt confidence. services to follow. SW provided pt dtr with referrals/resources for private duty care and assisted living facilities for possible future planning. SW to continue to follow to assist with safe dc planning for Monday 01/15.
[2019-01-12 20:08] VITALS: BP 153/56
--- NOTE | 2019-01-13 07:50 | NUR ---
ASSUMED CARES AT 1920. ALERT AND ORIENTED. PLEASANT. CDIFF ISOLATION. RLE BRACE WHEN OOB. TYLENOL GIVEN FOR BACK PAIN. MOM GIVEN PER PT REQUEST. SBA WITH GAIT BELT AND WALKER. PT IS INCONTINENT OF URINE CONTINUOUSLY. WILL GET UP TO VOID WELL. PVR CHECK TWICE WAS 68 CC [address] ROY, GO AHEAD AND PLACE BASSETT CATHETER. BASSETT CATHETER PLACED WITHOUT ISSUES. PT SLEPT OFF AND ON. CALL LIGHT IN REACH.
[2019-01-13 09:15] VITALS: BP 145/56
[2019-01-13 10:18] LABS: CALCIUM 8.2 mg/dL (8.5-10.1); POTASSIUM 4.4 mmol/L (3.5-5.1)
[2019-01-13 13:30] LABS: URINE BILIRUBIN NEGATIVE (Negative); URINE BLOOD 3+ (Negative); URINE CLARITY CLOUDY; URINE COLOR YELLOW; URINE GLUCOSE-RANDOM NEGATIVE (Negative); URINE KETONES NEGATIVE (Negative); URINE NITRITE-REFLEX NEGATIVE (Negative); URINE PROTEIN 2+ (Negative); URINE SPECIFIC GRAVITY 1.015 (1.005-1.030); URINE UROBILINOGEN 0.2 E.U./dl (0.2-1.0)
[2019-01-13 13:31] LABS: URINE LEUKOCYTES-REFLEX 2+ (Negative)
[2019-01-13 13:32] LABS: SQUAMOUS NONE SEEN /LPF (0-3); URINE RBC >20 Many /HPF (0-2); URINE WBC-REFLEX >25 Many /HPF (0-5)
[2019-01-13 13:34] LABS: BACTERIA-REFLEX 1-9 Few /HPF (None Seen); CASTS None Seen /LPF (None Seen); CRYSTALS None Seen /LPF (None Seen)
[2019-01-13 15:25] LABS: ABSOLUTE BASOPHILS 0.1 thou/uL (0.0-0.2); ABSOLUTE EOSINOPHILS 0.2 thou/uL (0.0-0.7); ABSOLUTE MONOCYTES 0.8 thou/uL (0.0-1.2); ABSOLUTE NEUTROPHILS 7.8 thou/uL (1.6-8.1); BASOPHILS 0.7 %; EOSINOPHILS 1.8 %; HEMATOCRIT 28.2 % (37.0-47.0); HEMOGLOBIN 9.5 gm/dL (12.0-15.0); LYMPHOCYTES 18.8 %; MCH 28.9 pg (26.0-34.0); MCHC 33.8 g/dL (28.0-37.0); MCV 85.7 fL (80.0-100.0); MPV 7.3 fl. (7.2-11.1); NUCLEATED RBCS 0 /100WBC; PLATELET COUNT* 231 thou/uL (150-400); POLYS 71.7 %; RBC 3.29 mil/uL (4.20-5.00); RDW-CV 17.2 % (10.5-14.5); WBC 10.8 thou/uL (4.0-11.0)
--- NOTE | 2019-01-13 18:29 | NUR ---
PT VSS THIS SHIFT. PT HAD BASSETT PLACED AT THE BEGINNING OF THE SHIFT WITH BLOODY, PURULENT URINE DRAINAGE THAT HAD A LOT OF CLOTS PRESENT. TEAM NOTIFIED AND LABS ORDERED AND UA SENT. PT TOLERATING RA AND DIET THIS SHIFT WITH NO N/V NOTED. PT HAS USED INSULIN THIS SHIFT FOR INCREASED BLOOD SUGARS. PT WEARS R LEG BRACE AND HAS NO COMPLAINTS THIS SHIFT. DR ROY NOTIFIED REGARDING CHANGES THIS SHIFT. PT ATTEMPTING TO HAVE BM AT THIS TIME AND HAS BEEN HAVING CONSTIPATION THIS STAY. HOURLY ROUNDING MAINTAINED AND PT REMINDED FREQUENTLY TO SHIFT WEIGHT WHILE SITTING BETWEEN THERAPIES. WILL CONTINUE TO MONITOR AND ASSESS
[2019-01-13 20:28] VITALS: BP 138/53
--- NOTE | 2019-01-14 02:01 | NUR ---
ASSUMED CARE AT 1930. RESTING IN RECLINER UNTIL AROUND 2029. UP WITH GAIT BELT, WALKER. TAKES PILLS WITH WATER. ON ISOLATION FOR C DIFF. BASSETT DRAINING PINK URINE. TURNS SELF. RLE BRACE REMOVED AT HS. SLIDING SCALE INSULIN AT HS. HOURLY ROUNDS CONTINUE. BED ALARM ON. CALL LITE IN REACH
--- NOTE | 2019-01-14 05:12 | NUR ---
RESTED QUIETLY THROUGH THE NIGHT. TURNS SELF. SERJIO CONTINUES TO DD. NO C/O PAIN. HOURLY ROUNDS CONTINUE. BED ALARM ON. CALL LITE IN REACH.
[2019-01-14 09:14] VITALS: BP 138/53
[2019-01-14 10:43] VITALS: BP 138/53
--- NOTE | 2019-01-14 10:44 | NUR ---
Pt to dc home alone on Monday 01/15 with dtr support and assistance when needed. Pt/family preference of [facility] services to follow. SW spoke with intake of [facility] and provided referral; SW to fax final dc orders/med list. Pt has all needed DME already at home. Pt dtr to provide pt ride home. [facility] [phone] fax [phone]
[2019-01-14 20:35] VITALS: BP 127/57
[2019-01-14 22:20] VITALS: BP 127/57
[2019-01-15 05:01] LABS: HEMATOCRIT 27.3 % (37.0-47.0); HEMOGLOBIN 9.4 gm/dL (12.0-15.0); MCH 29.1 pg (26.0-34.0); MCHC 34.4 g/dL (28.0-37.0); MCV 84.7 fL (80.0-100.0); MPV 7.6 fl. (7.2-11.1); RBC 3.22 mil/uL (4.20-5.00); RDW-CV 17.2 % (10.5-14.5); WBC 9.5 thou/uL (4.0-11.0)
[2019-01-15 05:03] LABS: CALCIUM 8.3 mg/dL (8.5-10.1); CREATININE 1.8 mg/dL (0.6-1.3); MAGNESIUM 2.1 mg/dL (1.8-2.4); POTASSIUM 4.4 mmol/L (3.5-5.1)
--- NOTE | 2019-01-15 05:59 | NUR ---
PT ALERT AND ORIENTED. VSS ON RA. PT EVACUATED OUT OF ROOM PER FRANCISCOARDO WARNING PROTOCOL.SPECIAL CONTACT ISOLATION IN PLACE. MEDS GIVEN PER EMAR. BED IN LOW POSITION. CALL LIGHT WITHIN. REACH. POSSIBLE DC TODAY. WILL CONTINUE PLAN OF CARE.
[2019-01-15 07:00] VITALS: BP 140/51
[2019-01-15] MEDS ORDERED: TUMS PO (10:25)
[2019-01-15] MEDS ORDERED: FLEXERIL PO (10:46)
[2019-01-15] MEDS ORDERED: GLUCOTROL5 MG PO (10:48)
[2019-01-15] MEDS ORDERED: FLOMAX0.4 MG PO (10:52)
[2019-01-15 11:07] VITALS: BP 138/53
[2019-01-15] MEDS ORDERED: MACROBID 100 M100 M2 PO (13:12)
--- NOTE | 2019-01-15 14:39 | NUR ---
ASSUMED CARE AT 0730. ALERT ORIENTED PLEASANT COOPERATIVE. HX OF CVA UTI AND HAS MACULAR DEGERATION VISION LOSS. DENIES PAIN OR REQUESTS. TRANSFERS WITH SBA G BELT AND AMBULATES WITH WALKER WITH STEADY GAIT. USES CALL LIGHT APPROPRIATELY FOR ASSISTANCE. BASSETT CATH PATENT WITH SOCORRO URINE TO DD BAG. HAD A BM X 2 THIS A.M.IN SPECIAL CONTACT ISOLATION FOR HX OF C DIFF. TO DR FOR MEALS FEEDS SELF AND TAKES MEDS WITHOUT DIFFICULTY 2 AT A TIME. PARTICIPATING IN THERAPIES.
[2019-01-15 16:20] VITALS: BP 138/53
--- NOTE | 2019-01-15 16:35 | NUR ---
DISCHARGED AT 1620 WITH DAUGHTER BELONGINGS D/C INSTRUCTIONS AND SCRIPTS TO HOME. VERBALIZED UNDERSTANDING OF D/C INSTRUCTIONS.
== END 2019-01-15 16:20 | disposition home health service (06) | DRG 71 ==
LOC: M.REH
PROVIDERS: Family Medicine; Internal Medicine; Nurse Practitioner Adult Health; Urology; ADMIT Physical Medicine & Rehabilitation
PROC: 0HBRXZZ Excision of Toe Nail, External Approach (ICD-10-PCS; principal; 2018-12-21)
DX: G93.49 Other encephalopathy (principal); N39.0 Urinary tract infection, site not specified; N17.9 Acute kidney failure, unspecified; A04.72 Enterocolitis due to Clostridium difficile, not specified as recurrent; I48.91 Unspecified atrial fibrillation; N18.9 Chronic kidney disease, unspecified; E11.22 Type 2 diabetes mellitus with diabetic chronic kidney disease; R53.81 Other malaise; B35.1 Tinea unguium; I12.9 Hypertensive chronic kidney disease with stage 1 through stage 4 chronic kidney disease, or unspecified chronic kidney disease; D64.9 Anemia, unspecified; M17.0 Bilateral primary osteoarthritis of knee; R21 Rash and other nonspecific skin eruption; H81.10 Benign paroxysmal vertigo, unspecified ear; Z88.0 Allergy status to penicillin; Z88.2 Allergy status to sulfonamides; Z88.1 Allergy status to other antibiotic agents; Z86.73 Personal history of transient ischemic attack (TIA), and cerebral infarction without residual deficits; Z85.3 Personal history of malignant neoplasm of breast

== ENCOUNTER 2019-08-30 06:01 | Inpatient (IN) | payer OTHER ==
[~2019-08-30] VITALS: Ht 152.4 cm; Wt 79.4 kg
[2019-08-30] VITALS (16 sets, daily range): BP systolic 121–209; BP diastolic 41–120
[~2019-08-30 06:01] MED LIST changes: +ADULT LOW DOSE81 MG PO; +AMLODIPINE BESYL5 M1 PO; +CALCIUM500 M1 PO; +CLONIDINE1 EACH TRANSDERM; +COMBIGAN EYE DR10 ML OP; +EPOGEN2000 UNIT/ SUBQ; +FIRVANQ50 MG/1 ML PO; +FLOMAX0.4 MG PO; +LANOXIN125 MCG PO; +[UNRECOGNIZED DRUG - CODE] SUBQ
[2019-08-30 06:40] LABS: ABSOLUTE BASOPHILS 0.1 thou/uL (0.0-0.2); ABSOLUTE EOSINOPHILS 0.2 thou/uL (0.0-0.7); ABSOLUTE LYMPHOCYTES 1.7 thou/uL (0.8-5.3); ABSOLUTE MONOCYTES 0.6 thou/uL (0.0-1.2); ABSOLUTE NEUTROPHILS 10.2 thou/uL (1.6-8.1); BASOPHILS 0.4 %; EOSINOPHILS 1.7 %; HEMATOCRIT 32.6 % (37.0-47.0); HEMOGLOBIN 10.9 gm/dL (12.0-15.0); LYMPHOCYTES 13.6 %; MCH 29.7 pg (26.0-34.0); MCHC 33.4 g/dL (28.0-37.0); MONOCYTES 4.5 %; MPV 7.8 fl. (7.2-11.1); NUCLEATED RBCS 0 /100WBC; PLATELET COUNT* 259 thou/uL (150-400); POLYS 79.8 %; RBC 3.67 mil/uL (4.20-5.00); RDW-CV 13.5 % (10.5-14.5); WBC 12.8 thou/uL (4.0-11.0)
[2019-08-30] MEDS ORDERED: K-TAB ER20 MEQ PO (06:49)
[2019-08-30] MEDS ORDERED: FLECAINIDE ACET50 M1 PO (06:50)
[2019-08-30 06:51] LABS: BE -5.3 mmol/L (-2 to +3); PCO2 41.7 mmHg (35.0-45.0); PO2 73.6 mmHg (75.0-100.0); pH 7.312 (7.340-7.450)
[2019-08-30] MEDS ORDERED: ELIQUIS5 MG PO (06:51)
[2019-08-30 06:52] LABS: CREATININE 1.8 mg/dL (0.6-1.3)
[2019-08-30 06:55] LABS: INR 1.1; PROTIME 10.8 Seconds (9.20-11.50)
[2019-08-30 07:03] LABS: ALBUMIN 3.6 g/dL (3.4-5.0); TOTAL BILIRUBIN 0.4 mg/dL (<0.1-1.0); TOTAL PROTEIN 7.4 g/dL (6.4-8.2)
[2019-08-30 07:16] LABS: URINE BILIRUBIN NEGATIVE (Negative); URINE BLOOD 1+ (Negative); URINE CLARITY CLEAR; URINE COLOR YELLOW; URINE GLUCOSE-RANDOM 1+ (Negative); URINE KETONES NEGATIVE (Negative); URINE PROTEIN 2+ (Negative); URINE SPECIFIC GRAVITY >= 1.030 (1.005-1.030); URINE UROBILINOGEN 0.2 E.U./dl (0.2-1.0)
[2019-08-30 07:17] LABS: URINE LEUKOCYTES-REFLEX 2+ (Negative); URINE NITRITE-REFLEX POSITIVE (Negative)
[2019-08-30 07:23] LABS: SQUAMOUS 0-3 Few /LPF (0-3)
[2019-08-30 07:24] LABS: BACTERIA-REFLEX >30 Many /HPF (None Seen); CASTS None Seen /LPF (None Seen); CRYSTALS None Seen /LPF (None Seen); MUCUS None Seen strn/LPF (None Seen); URINE RBC 3-10 Few /HPF (0-2)
--- NOTE | 2019-08-30 07:46 | NUR ---
DAUGHTER DEVENDRA STATES THAT SHE NEEDS A CODE FOR FAMILY TO CALL ONLY TO KEEP CALLS CONFIDENTIAL AND THE CODE TO BE #1820 AND I STATED TO HER I WILL PASS IT IN ICU REPORT. SHE STATES HER NIECE JUDI PRESSLEY PRETENDS TO BE INSURANCE TO GAIN INFORMATION ABOUT HER AUNT, ALESSIA PRESSLEY
--- NOTE | 2019-08-30 13:28 | NUR ---
DISCUSSED WITH PT AND DPOA IN ROOM ABOUT DNR STATUS.DR RENE IN ROOM AND TALKED TO DPOA ABOUT DNR STATUS.ADVANCED DIRECTIVE ON FRONT OF CHART.CODE STATUS CHANGED.
--- NOTE | 2019-08-30 13:56 | EKG ---
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 : 1930 Requested By: Deedee Brown Order Number: [id number] MD: Chance Solis Measurements Intervals [place] Rate: 117 P: MA: QRS: -38 QRSD: 106 T: 59 QT: 352 QTc: 491 Interpretive Statements Atrial fibrillation Left axis deviation Anterior infarct, old Baseline wander in lead(s) V6 Compared to ECG 12/16/2018 08:35:58 Sinus rhythm no longer present Myocardial infarct finding still present Electronically Signed On 08-30-2019 13:55:56 STRATEGIC 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
--- NOTE | 2019-08-30 14:47 | 2DMMODE ---
[place] [address] 2 D/M-MODE ECHOCARDIOGRAM Name: ALESSIA PRESSLEY Room: [facility] IN [facility]#: [id number] Admission: 08/30/19 Attend Phys: Conchita Soares, Discharge: Date of : 32 Date of Service: 08/30/19 1446 Report #: [id number] THIS REPORT FOR: //name// APPROVED REPORT Study performed: 08/30/2019 10:13:14 EXAM: Comprehensive 2D, Doppler, and color-flow Echocardiogram Patient Location: In-Patient Room #: [facility] Status: routine BSA: 1.70 HR: 73 bpm BP: 172/84 mmHg Rhythm: NSR Other Information Study Quality: Good Indications Congestive Heart Failure 2D Dimensions IVSd: 10.10 (7-11mm) LVOT Diam: 20.16 (18-24mm) LVDd: 64.58 mm PWd: 10.06 (7-11mm) Ascending Ao: 28.62 (22-36mm) LVDs: 42.97 (25-40mm) Aortic Root: 28.94 mm Volumes Left Atrial Volume (Systole) LA ESV Index: 41.00 mL/m2 Aortic Valve AoV Peak Myke.: 1.38 m/s AO Peak Gr.: 7.60 mmHg LVOT Max P.22 mmHg AO Mean Gr.: 4.83 mmHg LVOT Mean P.95 mmHg LVOT Max V: 1.03 m/s AO V2 VTI: 29.61 cm LVOT Mean V: 0.63 m/s MIMI (VTI): 2.38 cm2 LVOT V1 VTI: 22.05 cm Mitral Valve MV Mean Gr.: 3.55 mmHg E/A Ratio: 1.75 MV Decel. Time: 178.19 ms MV E Max Myke.: 1.16 m/[place] [address] 2 D/M-MODE ECHOCARDIOGRAM Name: ALESSIA PRESSLEY Room: [address] IN .R.#: [id number] Admission: 08/30/19 Attend Phys: Conchita Soares, Discharge: Date of : 32 Date of Service: 08/30/19 1446 Report #: [id number] MV PHT: 51.67 ms MVA (PHT): 4.26 cm2 TDI E/Lateral E': 11.60 E/Medial E': 10.55 Medial E' Myke.: 0.11 m/s Lateral E' Myke.: 0.10 m/s Pulmonary Valve PV Peak Myke.: 1.01 m/s PV Peak Gr.: 4.12 mmHg Tricuspid Valve RAP Estimate: 5.00 mmHg TR Peak Gr.: 36.16 mmHg RVSP: 41.00 mmHg PA Pressure: 41.00 mmHg Left Ventricle Left ventricle is mildly dilated. There is normal LV segmental wall motion. There is normal left ventricular wall thickness. Left ventricular systolic function is normal. LVEF is 50-55%. Transmitral Doppler flow pattern suggests restrictive physiology. Right Ventricle Right ventricle is mildly dilated. The right ventricular systolic function is normal. Atria Left atrium is mildly dilated. Right atrium is mildly dilated. Aortic Valve Mild aortic valve sclerosis. No aortic regurgitation is present. There is no aortic valvular stenosis. Mitral Valve There is mitral annular calcification. Mild mitral regurgitation. No evidence of mitral valve stenosis. Tricuspid Valve The tricuspid valve is normal in structure. Trace tricuspid regurgitation. The RVSP is 40-45 mmHg. Pulmonic Valve The pulmonary valve is normal in structure. There is no pulmonic [place] [address] 2 D/M-MODE ECHOCARDIOGRAM Name: ALESSIA PRESSLEY Zunilda Room: [address] IN [facility]#: [id number] Admission: 08/30/19 Attend Phys: Conchita Soares, Discharge: Date of : 32 Date of Service: 08/30/19 1446 Report #: [id number] Great Vessels The aortic root is normal in size. IVC is normal in size and collapses >50% with inspiration. Pericardium There is no pericardial effusion. <Conclusion> Left ventricle is mildly dilated. There is normal left ventricular wall thickness. Left ventricular systolic function is normal. LVEF is 50-55%. Transmitral Doppler flow pattern suggests restrictive physiology. Right ventricle is mildly dilated. Left atrium is mildly dilated. Right atrium is mildly dilated. Mild mitral regurgitation. Trace tricuspid regurgitation. The RVSP is 40-45 mmHg. IVC is normal in size and collapses >50% with inspiration. <ELECTRONICALLY SIGNED> By: Sky Ibarra MD, [facility] 08/30/19 1446 1446 1446 Sky Ibarra MD, FACC /INF
--- NOTE | 2019-08-30 17:26 | NUR ---
PT IS A/O BUT FORGETFUL AT TIMES.VSS.MANAGEMENT TRAINEE IN PLACE-TRACING SR.PT REMAINS ON BIPAP/2L O2 NC PRN.IV ANTIBIOTICS GIVEN.OUTSIDE THE HOSPITAL BASSETT SECURE AND PATENT- JUST CHANGED 08/29/19 AT UROLOGY OFFICE.PT RECIEVED 40 MG OF LASIX. ECHO COMPLETED.CARDIOLOGY D/C CARDIZEM DRIP AND STARTED PO.NO C/O PAIN.PT AND FAMILY INFORMED OF PLAN OF CARE AND COMMUNICATE UNDERSTANDING.CALL LIGHT AND FALL PRECAUTIONS IN PLACE.WILL CONTINUE TO MONITOR FOR DURATION OF SHIFT.
--- NOTE | 2019-08-30 19:24 | NUR ---
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
[2019-08-30] MEDS ORDERED: TIMOLOL MALEATE5 M2 OPHTHALMIC (21:49)
[2019-08-31] VITALS (20 sets, daily range): BP systolic 114–174; BP diastolic 40–96
[2019-08-31 05:19] LABS: HEMATOCRIT 28.4 % (37.0-47.0); HEMOGLOBIN 9.6 gm/dL (12.0-15.0); MCH 30.1 pg (26.0-34.0); MCHC 33.9 g/dL (28.0-37.0); RBC 3.2 mil/uL (4.20-5.00); RDW-CV 13.1 % (10.5-14.5); WBC 9.4 thou/uL (4.0-11.0)
--- NOTE | 2019-08-31 05:53 | NUR ---
ASSUMED CARE AT 1900H, ON BIPAP 50% THEN DECREASE TO 40% BUT PT WANTED OFF OF BIPAP AND PUT HER ON NC AT 4LPM THEN 2LPM,WELL TOLERATED.EARLY THE SHIFT, PT WAS CONFUSED AFTER FEW MINUTES OF GIVING ATIVAN THEN BACK TO BEING ORIENTED.LET PT SAT ON CHAIR WITH NC AT 2LPM AND TOLERATED.NO DISTRESS NOTED. DTR WANTED THE DOCTOR TO CHECKED PT'S BLISTER OR WARTS ON HER NOSE. THIS WAS STARED WHEN SHE FELL FACE FIRST DTR STATED.CONTINUE MONITORING AND TO TOWARD GOALS.
[2019-08-31 05:54] LABS: ALBUMIN 3.1 g/dL (3.4-5.0); CALCIUM 8.4 mg/dL (8.5-10.1); MAGNESIUM 1.7 mg/dL (1.8-2.4); POTASSIUM 3.8 mmol/L (3.5-5.1); TOTAL BILIRUBIN 0.4 mg/dL (<0.1-1.0); TOTAL PROTEIN 6.7 g/dL (6.4-8.2)
--- NOTE | 2019-08-31 10:00 | NUR ---
INT ROUNDS: MET WITH PT AND DTR/DEVENDRA TO DISCUSS HOME SITUATION/DC PLANNING. PT IS SOBOBA, DEVENDRA ANSWERED MOST QUESTIONS. PT LIVES ALONE, DEVENDRA AND SPOUSE LIVE BEHIND HER HOME. PT IS FAIRLY INDEPENDENT WITH ADLS, USES SHOWER BENCH, WALKER AND NEBULIZER. HAS HAD HH IN PAST WITH [facility] AND [facility], WOULD LIKE TO USE [facility] AGAIN AT [place]. HAS ALSO BEEN TO SNF AT [facility] AND INPT REHAB AT [facility] AFTER STROKE. PT PLANS TO RETURN HOME AT OK. CALLED AND FAXED INITIAL REFERRAL TO [facility]. WILL FOLLOW
[2019-09-01 01:11] VITALS: BP 135/49
[2019-09-01 04:00] VITALS: BP 139/46
[2019-09-01 04:15] LABS: HEMATOCRIT 30.2 % (37.0-47.0); HEMOGLOBIN 10.3 gm/dL (12.0-15.0); MCH 30.3 pg (26.0-34.0); MCHC 34.3 g/dL (28.0-37.0); MCV 88.3 fL (80.0-100.0); MPV 7.7 fl. (7.2-11.1); RBC 3.42 mil/uL (4.20-5.00); RDW-CV 13.1 % (10.5-14.5); WBC 8.6 thou/uL (4.0-11.0)
--- NOTE | 2019-09-01 04:26 | NUR ---
ASSUMED CARE AT 1900H, ON NC AT 2LPM.PT O2 SAT AT 0015H WAS 91% AND WAS TACHYPNIC, BACK TO BIPAP AT 40% AND WELL TOLERATED.NO ANXIETY NOTED AND PT RESTED WELL.CONTINUE MONITORING AND TOWARD GOALS.
[2019-09-01 04:46] LABS: ALBUMIN 3.1 g/dL (3.4-5.0); CALCIUM 8.8 mg/dL (8.5-10.1); CREATININE 2.2 mg/dL (0.6-1.3); MAGNESIUM 1.9 mg/dL (1.8-2.4); TOTAL BILIRUBIN 0.5 mg/dL (<0.1-1.0); TOTAL PROTEIN 6.8 g/dL (6.4-8.2)
[2019-09-01 08:00] VITALS: BP 136/79
[2019-09-01 10:00] VITALS: BP 137/69
--- NOTE | 2019-09-01 11:18 | NUR ---
ICU rounds: pt working with PT and OT. Nurse states pt is tele status. Culture results pending. SW to continue to follow to assist with safe dc planning.
--- NOTE | 2019-09-01 17:49 | NUR ---
PT CARE ASSUMED AFTER REPORT. ASSESSMENTS COMPLETE. AFIB ON MONITOR. PT ON O2 2L NC UNTIL 1430, THEN ASKED TO BE BACK ON BIPAP. PT UP TO CHAIR MAJORITY OF THE DAY. DENIES PAIN. PROGRESSING TOWARDS GOALS.
[2019-09-01 20:00] VITALS: BP 132/62
[2019-09-01 23:24] VITALS: BP 125/63
--- NOTE | 2019-09-02 00:02 | NUR ---
PT. CONFUSED WHEN ROUNDING AT 2340. STATED "WHY IS THIS PIANO STILL IN HERE? CAN'T WE FIND SOMEONE TO TAKE IT? IT'S IN MY WAY" REORIENTED TO PLACE AND SITUATION. WILL CONTINUE TO MONITOR.
[2019-09-02 04:35] LABS: HEMATOCRIT 29.5 % (37.0-47.0); MCHC 33.9 g/dL (28.0-37.0); MCV 88.4 fL (80.0-100.0); MPV 7.9 fl. (7.2-11.1); RBC 3.34 mil/uL (4.20-5.00); RDW-CV 13.1 % (10.5-14.5); WBC 7.9 thou/uL (4.0-11.0)
[2019-09-02 04:36] VITALS: BP 125/56
[2019-09-02 04:56] LABS: CALCIUM 8.8 mg/dL (8.5-10.1); CREATININE 2.6 mg/dL (0.6-1.3); POTASSIUM 4.3 mmol/L (3.5-5.1); TOTAL BILIRUBIN 0.4 mg/dL (<0.1-1.0); TOTAL PROTEIN 6.6 g/dL (6.4-8.2)
[2019-09-02 08:30] VITALS: BP 124/50
[2019-09-02 09:42] LABS: % SATURATION 16 % (20-39); IRON 27 ug/dL (50-175)
[2019-09-02 13:55] VITALS: BP 133/57
[2019-09-02 15:58] VITALS: BP 129/65
--- NOTE | 2019-09-02 18:10 | NUR ---
PT NAUSEOUS, ZOFRAN ADMINISTERED TWICE THIS SHIFT, NAUSEA RESOLVED WITH ZOFRAN BUT PT DIDN'T HAVE ANY LUNCH. SHE HAD 50% OF HER BREAKFAST. NO BM THIS SHIFT, MIRALAX GIVEN DURING THE DAY. PT UP IN BSC, STB ASSIST WITH THE HELP OF A WALKER. VSS. ECG SHOWS A FIB, RATE CONTROLLED. PT ON AND OFF OF BIPAP DURING THE DAY. REPORT GIVEN TO LUDWIN BURRIS, TELE.
[2019-09-02 20:00] VITALS: BP 127/55
[2019-09-03] VITALS: BP 129/55
[2019-09-03 04:00] VITALS: BP 163/55
[2019-09-03 05:04] LABS: HEMOGLOBIN 10.1 gm/dL (12.0-15.0); MCH 29.8 pg (26.0-34.0); MCHC 33.6 g/dL (28.0-37.0); MCV 88.6 fL (80.0-100.0); MPV 8.2 fl. (7.2-11.1); RBC 3.39 mil/uL (4.20-5.00); RDW-CV 13.4 % (10.5-14.5); WBC 11.4 thou/uL (4.0-11.0)
[2019-09-03 05:27] LABS: ALBUMIN 3.3 g/dL (3.4-5.0); CREATININE 3.1 mg/dL (0.6-1.3); MAGNESIUM 2.2 mg/dL (1.8-2.4); TOTAL BILIRUBIN 0.3 mg/dL (<0.1-1.0); TOTAL PROTEIN 7.1 g/dL (6.4-8.2)
[2019-09-03 05:29] LABS: POTASSIUM 6.7 mmol/L (3.5-5.1)
[2019-09-03 05:57] LABS: ALBUMIN 3.4 g/dL (3.4-5.0); CREATININE 3.3 mg/dL (0.6-1.3); PHOSPHORUS* 3.8 mg/dL (2.5-4.9)
[2019-09-03 05:59] LABS: POTASSIUM 6.7 mmol/L (3.5-5.1)
[2019-09-03 08:00] VITALS: BP 146/57
[2019-09-03 12:11] VITALS: BP 139/55
[2019-09-03 16:23] VITALS: BP 135/57
--- NOTE | 2019-09-03 18:57 | NUR ---
daughter approached nurse crying stated her mother told her she was ready to and told her to call family so she could say goodbye daughter reassured and will continue to monitor situation
--- NOTE | 2019-09-03 19:30 | CON ---
[address] [address] CONSULTATION Name: WENDIEALESSIA Zunilda Room: [address] IN M.R.#: [id number] Admission: 08/30/19 Attend Phys: Conchita Soares MD Discharge: Date of : 32 Report #: [id number] THIS REPORT FOR: //name// CC: Blake Soares DATE OF SERVICE: 09/02/2019 I was asked to see this 89-year-old lady for acute respiratory failure. HISTORY OF PRESENT ILLNESS: The patient is hard of hearing and also poor historian. She has had history of atrial fibrillation, since December of last year had been on Eliquis. She has been followed by Dr. Ibarra. She has not felt good for the past few days. She presented to the Emergency Room with shortness of breath. She has had cough and occasional wheezing. She is a lifelong nonsmoker. She does not have any lung disease. She denies fever or chills. She did have some nasal congestion. She was found to be in AFib with rapid ventricular response and Cardizem drip was started. Now, she is on Cardizem p.o. and still in atrial fibrillation, but rate controlled. She denies chest pain. The patient has been on BiPAP on and off since admission. PAST MEDICAL HISTORY: Atrial fibrillation, chronic kidney disease, history of CVA, hypertension, and diabetes mellitus. ALLERGIES: PENICILLIN, SULFA. MEDICATIONS: Currently, she is on Rocephin, azithromycin, flecainide, Lipitor, insulin, potassium, Levaquin, Glucotrol, was on Lasix, folic acid, Pepcid, Cardizem, aspirin, levothyroxine, iron, Eliquis, Xopenex, Timoptic eye drops. SOCIAL HISTORY: She is a lifelong nonsmoker. FAMILY HISTORY: There is no history of lung disease. REVIEW OF SYSTEMS: As mentioned as above. She does have snoring and excessive daytime sleepiness. She has not been checked for sleep apnea, but when she talked to Dr. Ibarra, a few months ago and told him that she dozed off during day, he thought that she has a sleep apnea, but sleep study is not done yet. Other systems are otherwise negative. PHYSICAL EXAMINATION: GENERAL: Overweight lady. VITAL SIGNS: Her O2 saturation on 5 liters of oxygen is 100%, respiratory rate 26, heart rate 92, blood pressure 125/56, temperature 36. HEENT: Normocephalic, atraumatic. Pupils equal, round, reactive to light. Throat is clear. There is shallow oropharynx[place] [address] CONSULTATION Name: ALESSIA PRESSLEY Room: [address] IN M.R.#: [id number] Admission: 08/30/19 Attend Phys: Conchita Soares MD Discharge: Date of : 32 Report #: [id number] NECK: There is no lymphadenopathy or thyromegaly. CARDIOVASCULAR: Irregular rhythm. PMI is nondisplaced. CHEST: Inspection is normal. LUNGS: There are bibasilar crackles, dullness at the bases. ABDOMEN: Soft and obese. Bowel sounds are good. There is no mass. EXTREMITIES: There is no edema. LYMPHATICS: There is no lymphadenopathy. NEUROLOGIC: Alert and oriented. SKIN: Chronic changes. LABORATORY DATA: I reviewed the final lab data. Chest x-ray on admission did show bilateral lower lobe infiltrate/atelectasis/effusion. Today's x-ray improved. WBC on admission 12.8, now is 7.9, hemoglobin 10, platelets 193. Sodium 137, potassium 4.3, chloride 101, CO2 of 27, glucose 166, BUN 48, creatinine 2.6, on admission was 1.8. ABG on admission, pH 7.31, pCO2 of 41, pO2 73. Her urine culture is positive for E. coli sensitive to Rocephin. IMPRESSION: 1. Acute respiratory failure, multifactorial in etiology including atrial fibrillation with rapid ventricular response, acute diastolic congestive heart failure,? pneumonia versus others. 2. Abnormal chest x-ray. 3. Acute diastolic congestive heart failure. 4. Atrial fibrillation with rapid ventricular response, now rate controlled. 5. ? pneumonia. 6. Acute kidney injury on chronic kidney disease. 7. Hypertension. 8. Snoring and excessive daytime sleepiness, probable obstructive sleep apnea-hypopnea syndrome. 9. Urinary tract infection. PLAN AND RECOMMENDATIONS: 1. Titrate FiO2 to keep O2 saturation 92%. 2. I will change her bronchodilator to Atrovent only. 3. Continue azithromycin and Rocephin. We will stop Levaquin. 4. Lasix is on hold per Cardiology. 5. Continue Eliquis. 6. 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 I do recommend a sleep study as an outpatient. 7. I will do a CT of the chest to have a better look at chest x-ray abnormalities. 8. The findings and recommendations were discussed with the patient and RN. I have answered all of the patient's questions. She understood and agreed to proceed with the plan. [address] [place] [address] CONSULTATION Name: WENDIEALESSIA Zunilda Room: [address] IN ..#: [id number] Admission: 08/30/19 Attend Phys: Conchita Soares MD Discharge: Date of : 32 Report #: [id number] Thank you very much for allowing me to participate in care of this very nice lady. <ELECTRONICALLY SIGNED> By: Saige Lewis MD 09/03/19 1930 [id number] 0148Saige Lewis MD /nt
[2019-09-04 00:09] VITALS: BP 138/55
[2019-09-04 03:55] VITALS: BP 108/54
[2019-09-04 05:19] LABS: HEMATOCRIT 29.8 % (37.0-47.0); HEMOGLOBIN 10.1 gm/dL (12.0-15.0); MCH 29.9 pg (26.0-34.0); MCHC 33.8 g/dL (28.0-37.0); MCV 88.7 fL (80.0-100.0); MPV 8.1 fl. (7.2-11.1); RBC 3.36 mil/uL (4.20-5.00); RDW-CV 13.4 % (10.5-14.5); WBC 11.1 thou/uL (4.0-11.0)
[2019-09-04 05:28] LABS: CALCIUM 8.8 mg/dL (8.5-10.1); CREATININE 3.2 mg/dL (0.6-1.3); POTASSIUM 5.7 mmol/L (3.5-5.1)
[2019-09-04 05:34] LABS: ALBUMIN 3.3 g/dL (3.4-5.0); CALCIUM 8.3 mg/dL (8.5-10.1); CREATININE 3.4 mg/dL (0.6-1.3); PHOSPHORUS* 4.5 mg/dL (2.5-4.9); POTASSIUM 5.8 mmol/L (3.5-5.1)
--- NOTE | 2019-09-04 07:05 | NUR ---
CHANGE OF SHIFT, BEDSIDE REPORT GIVEN PATIENT SEEN AT BEDSIDE, IN BED ASLEEP WITH BIPAP ON ASSUMED PATIENT CARE BED ALARM ON
[2019-09-04 08:00] VITALS: BP 141/60
[2019-09-04 12:33] VITALS: BP 152/63
[2019-09-04 16:08] VITALS: BP 141/55
--- NOTE | 2019-09-04 19:22 | NUR ---
I ASSUMED CARE OF THE PATIENT AT 1300 FROM [facility]. SHE IS ALERT AND ORIENTED X3 AND IS ON BEDREST. BED IS IN THE LOW LOCKED POSITION AND CALL LIGHT IS IN REACH. HOURLY ROUNDING IS COMPLETED AND PATIENT NEEDS ARE MET. PAIN IS DENIED. FAMILY IS AT THE BEDSIDE. PLEASE CALL DEVENDRA IF YOU NEED ANYTHING OR IF ANYTHING CHANGES. WILL CONTINUE TO FOLLOW. SHE WAS ON BIPAP ALL BUT MEAL TIMES TODAY. DEVENDRA WOULD LIKE TO TALK WITH CASE MANAGEMENT ABOUT PALLATIVE CARE. URINE IS STILL VERY DARK. SLIDING SCALE HAS BEEN HELD D/T LACK OF EATING.
[2019-09-04 20:00] VITALS: BP 171/74
[2019-09-05] VITALS: BP 161/69
[2019-09-05 03:31] VITALS: BP 141/62
[2019-09-05 05:48] LABS: HEMOGLOBIN 9.3 gm/dL (12.0-15.0); MCH 30.7 pg (26.0-34.0); MCHC 34.5 g/dL (28.0-37.0); MCV 88.8 fL (80.0-100.0); RBC 3.04 mil/uL (4.20-5.00); WBC 8.9 thou/uL (4.0-11.0)
[2019-09-05 06:07] LABS: CALCIUM 8.8 mg/dL (8.5-10.1); MAGNESIUM 2.4 mg/dL (1.8-2.4); POTASSIUM 4.7 mmol/L (3.5-5.1); TOTAL BILIRUBIN 0.3 mg/dL (<0.1-1.0); TOTAL PROTEIN 6.7 g/dL (6.4-8.2)
[2019-09-05 06:16] LABS: ALBUMIN 3.1 g/dL (3.4-5.0); CALCIUM 8.6 mg/dL (8.5-10.1); PHOSPHORUS* 4.6 mg/dL (2.5-4.9); POTASSIUM 4.9 mmol/L (3.5-5.1)
[2019-09-05 08:48] VITALS: BP 153/71
[2019-09-05 12:15] VITALS: BP 153/62
--- NOTE | 2019-09-05 13:03 | NUR ---
CM asked nurse to re-order therapies. Following
--- NOTE | 2019-09-05 13:54 | CON ---
[address] [address] CONSULTATION Name: ALESSIA PRESSLEY Zunilda Room: [address] IN M.R.#: [id number] Admission: 08/30/19 Attend Phys: Conchita Soares MD Discharge: Date of : 32 Report #: [id number] THIS REPORT FOR: //name// CC: Blake Soares NEPHROLOGY CONSULT CONSULTING PHYSICIAN: Dr. Soares. REASON FOR CONSULT: Acute kidney injury. HISTORY OF PRESENT ILLNESS: An 89-year-old female with a history of chronic kidney disease followed by me as an outpatient, who was admitted with acute hypoxic respiratory failure, diagnosed with diastolic heart failure, also had AFib with RVR, pneumonia and has a history of chronic UTIs. She has been started on antibiotics. Cardiology was consulted to see her and she converted to sinus rhythm with IV diltiazem. Lasix was ordered. She has had good urine output. Presently, does not have any complaints. She was last seen in our office back in January by our nurse practitioner. REVIEW OF SYSTEMS: Constitutional, psych, heme, eyes, ENT, respiratory, cardiac, GI, , endocrine all negative except as documented above. PAST MEDICAL HISTORY: Chronic kidney disease stage 3, anemia of chronic disease, history of hydronephrosis bilaterally, insulin-dependent diabetes, history of breast cancer with radiation therapy, proteinuria, recurrent UTIs followed by Dr. Chapman. MEDICATIONS: Reviewed. SOCIAL HISTORY: No tobacco. FAMILY HISTORY: Not pertinent in this 89-year-old female. PHYSICAL EXAMINATION: VITAL SIGNS: Blood pressure 125/56, pulse 78, respirations 26, temperature 37.3. GENERAL: No acute distress. HEENT: Eyes: Open. Ears: Externally normal. NECK: Supple. CARDIOVASCULAR: Regular rate. LUNGS: Diminished breath sounds. ABDOMEN: Soft. MUSCULOSKELETAL: Nontender. PSYCHIATRIC: [place]ake, [place] [address] CONSULTATION Name: ALESSIA PRESSLEY Zunilda Room: [address]#: [id number] Admission: 08/30/19 Attend Phys: Conchita Soares MD Discharge: Date of : 32 Report #: [id number] LABORATORY AND DIAGNOSTIC DATA: White cell count 7.9, hemoglobin 10, platelets 193. Sodium 137, potassium 4.3, chloride 101, bicarbonate 27, BUN 48, creatinine 2.6, glucose 166, calcium 8.8, magnesium 2, albumin is 3. ASSESSMENT: 1. Acute kidney injury with an admission creatinine of 1.8 up to 2.6 on 09/02 in the setting of pneumonia, chronic urinary tract infections, AFib with rapid ventricular rate, diastolic heart failure, severe. UA noted. 2. Anemia with iron deficiency. She has had upper and lower endoscopy by Dr. Ferro and Dr. Samayoa in the past which showed H. pylori, which was treated. Dr. German has seen her for anemia in the past as well. She has been treated with erythropoietin as well as IV iron. 3. Hypoalbuminemia with an albumin of 3. 4. E. coli urinary tract infection. 5. Pneumonia. 6. History of breast cancer. 7. History of stroke. 8. Chronic kidney disease stage 3, baseline creatinine about 1.6-1.9. SPEP did not show any M-spike. Immunofixation showed restricted protein mobility. Free light chain was 2.1. 9. Proteinuria 04/2018, urine protein to creatinine ratio of 4655. In the past, she has declined aggressive workup and kidney biopsy. PLAN: 1. Good urine output. 2. On antibiotics. 3. Lasix on hold. 4. Discontinue aluminum hydroxide. 5. Check CK. 6. Check renal ultrasound. 7. Creatinine may increase for a few days before plateauing. We will follow closely. Check labs again in the a.m. Thank you for requesting my opinion in the care and management of this patient. <ELECTRONICALLY SIGNED> By: Dougie Sorto MD 09/05/19 1354 1335 0030Dougie Sorto MD /nt
--- NOTE | 2019-09-05 15:28 | NUR ---
Met with Pt's dtr, discussion had regarding hospice. Family meeting to be held, CM answered questions and provided info on private duty caregivers. Follwoing.
[2019-09-05 16:00] VITALS: BP 154/65
--- NOTE | 2019-09-05 16:45 | NUR ---
PT'S PRIVACY CODE SET UP BY DAUGHTER IS 1820.
[2019-09-06 00:17] VITALS: BP 146/64
[2019-09-06 04:31] VITALS: BP 155/62
--- NOTE | 2019-09-06 05:23 | NUR ---
ASSUMED CARE OF PATIENT AT 1900. VSS, AFEBRILE. RESTING THROUGH THE NIGHT WITH BIPAP. VERY TALKATIVE AT BEGINNING OF SHIFT, THEN REQUESTING BIPAP AND SLEEP. NIECE AT BEDSIDE FOR A WHILE. CHECKED ON FREQUENTLY THROUGH THE NIGHT. NO S/S OF DISTRESS. WILL CONTINUE TO MONITOR.
[2019-09-06 10:59] VITALS: BP 127/71
[2019-09-06 11:31] VITALS: BP 139/76
--- NOTE | 2019-09-06 11:31 | NUR ---
PT'S DAUGHTER CAME TO NURSING STATION TO INFORM THAT PT WAS C/O SLIGHT HEADACHE/SINUS ACHE. DAUGHTER INFORMS THAT HOW PT HAD LAST STROKE. INFORM DOCTOR TRISHA AND INSTRUCTED TO PERM ABBREVIATED NIH WHIS WAS ZERO. WILL CONTINUE TO ASSESS.
[2019-09-06 14:01] LABS: HEMATOCRIT 30.5 % (37.0-47.0); HEMOGLOBIN 10.1 gm/dL (12.0-15.0); MCH 29.7 pg (26.0-34.0); MCHC 33.2 g/dL (28.0-37.0); MCV 89.5 fL (80.0-100.0); MPV 7.9 fl. (7.2-11.1); NUCLEATED RBCS 0 /100WBC; PLATELET COUNT* 284 thou/uL (150-400); RDW-CV 13.2 % (10.5-14.5); WBC 12.7 thou/uL (4.0-11.0)
[2019-09-06 14:10] LABS: ALBUMIN 2.9 g/dL (3.4-5.0); CALCIUM 8.6 mg/dL (8.5-10.1); CREATININE 2.4 mg/dL (0.6-1.3); MAGNESIUM 2.4 mg/dL (1.8-2.4); POTASSIUM 4.4 mmol/L (3.5-5.1); TOTAL BILIRUBIN 0.3 mg/dL (<0.1-1.0); TOTAL PROTEIN 6.8 g/dL (6.4-8.2)
--- NOTE | 2019-09-06 14:21 | NUR ---
NUTRITION: PT SEEN FOR LOS. PT REPORTED TROUBLE CHEWING/SWALLOWING MEAT, DECLINED CHOPPED OR GROUND MEAT. DAUGHTER REPORTED PT "WAS DYING" YESTERDAY, IMPROVED TODAY AND TODAY WAS THE FIRST SHE HAS EATEN. AT VISIT PT HAD EATEN >50% OF MEAL. WOULD LIKE ENSURE W/ ALL MEALS. ALBUMIN 3.0, RFT'S ELEVATED WITH CKD. MEDS REVIEWED. PT REPORTED UBW 155-160 LB, NO NEW WT SINCE ADMIT. ASSESS AT LOW-MILD NUTRITION RISK.
--- NOTE | 2019-09-06 14:23 | NUR ---
Pt, son and dtr met with liaison from [facility] for an info visit. Per liaison, Pt and family to discuss hospice at dc, possibly plan to return home with HH prior to signing on with hospice. CM following.
[2019-09-06 14:34] LABS: ABSOLUTE BASOPHILS 0.3 thou/uL (0.0-0.2); ABSOLUTE LYMPHOCYTES 1.4 thou/uL (0.8-5.3); ABSOLUTE MONOCYTES 0.4 thou/uL (0.0-1.2); ABSOLUTE NEUTROPHILS 10.7 thou/uL (1.6-8.1)
[2019-09-06 14:35] LABS: PLATELET ESTIMATE ADEQUATE
[2019-09-06 14:36] LABS: HYPOCHROMASIA Occasional
[2019-09-06 16:00] VITALS: BP 131/68
[2019-09-06 20:00] VITALS: BP 132/69
[2019-09-07] VITALS (7 sets, daily range): BP systolic 132–168; BP diastolic 61–81
--- NOTE | 2019-09-07 06:11 | NUR ---
PT. DID NOT SLEEP WELL THIS SHIFT, STATED SHE "HATES THIS BED". REPOSITIONED IN ATTEMPT TO PROVIDE COMFORT. TURNED Q2H. TOLERATED BIPAP FOR APPROXIMATELY 2.5-3 HOURS. ON 2L O2 AT THIS TIME. WILL CONTINUE TO MONITOR.
--- NOTE | 2019-09-07 14:03 | NUR ---
Pt/family now wanting skilled, faxed referrals to [facility] and [place], both will have beds tomorrow pending clinical acceptance and insurance auth. Following.
--- NOTE | 2019-09-07 19:37 | NUR ---
VSS, AFIB WITH BBB ON TELE, A&OX4, PATIENT HAS BILATERAL VISION LOSS, PATIENT UP WITH ONE AND A WALKER, BIPAP AT NIGHT TOLERATED, HOURLY ROUNDING PERFORMED, POSSESSIONS AND CALL LIGHT WITHIN REACH. FAMILY AT BEDSIDE FOR A MAJORITY OF THE DAY
[2019-09-08 04:23] VITALS: BP 145/80
--- NOTE | 2019-09-08 05:35 | NUR ---
PT CARE ASSUMED AT 1930. SAT DROPPED TO 86% IN RA, CONNECTED IN 3L NC. CALL LIGHT WITHIN REACH AND BED IN LOW POSITION. C/O NAUSEA, MEDICATION GIVEN PER EMAR. HOURLY ROUNDING DONE FOR PT SAFETY.
--- NOTE | 2019-09-08 07:42 | NUR ---
[facility] is able to accept Pt for skilled, started ins auth yesterday and anticipate having auth today. Following.
[2019-09-08 08:00] VITALS: BP 139/65
[2019-09-08 12:00] VITALS: BP 145/69
[2019-09-08 12:20] LABS: ABSOLUTE BASOPHILS 0.1 thou/uL (0.0-0.2); ABSOLUTE EOSINOPHILS 0.3 thou/uL (0.0-0.7); ABSOLUTE MONOCYTES 0.6 thou/uL (0.0-1.2); ABSOLUTE NEUTROPHILS 8.1 thou/uL (1.6-8.1); BASOPHILS 1.4 %; HEMOGLOBIN 8.8 gm/dL (12.0-15.0); LYMPHOCYTES 9.7 %; MCH 29.8 pg (26.0-34.0); MCV 87.5 fL (80.0-100.0); MONOCYTES 5.8 %; MPV 7.7 fl. (7.2-11.1); NUCLEATED RBCS 0 /100WBC; PLATELET COUNT* 259 thou/uL (150-400); POLYS 80.1 %; RBC 2.97 mil/uL (4.20-5.00); RDW-CV 13.1 % (10.5-14.5); WBC 10.1 thou/uL (4.0-11.0)
[2019-09-08 12:27] LABS: CALCIUM 8.4 mg/dL (8.5-10.1); CREATININE 2.1 mg/dL (0.6-1.3); POTASSIUM 4.5 mmol/L (3.5-5.1)
--- NOTE | 2019-09-08 15:52 | NUR ---
Pt discharging to [facility] skilled today, facility to curing pickling packer at 5pm. Faxed dc orders. Chart copied. Nurse report number is [phone]. Updated dtr in room. Updated Nelli with [facility], she will f/u
[2019-09-08 16:00] VITALS: BP 143/74
[2019-09-08] MEDS ORDERED: CEFDINIR300 MG PO (16:09)
[2019-09-08] MEDS ORDERED: FLECAINIDE ACE150 MG PO (16:12)
[2019-09-08] MEDS ORDERED: DILTIAZEM 24HR240 M1 PO (16:20)
[2019-09-08] MEDS ORDERED: ACID REDUCER20 MG PO (16:25)
--- NOTE | 2019-09-08 20:25 | NUR ---
VSS, AFIB WITH BBB ON TELE, A&OX4, UP WITH ASSIST AND WALKER, HOURLY ROUNDING PERFORMED, POSSESSIONS AND CALL LIGHT WITHIN REACH. PT LEGALLY BLIND, PT TRANSFERRED TO [facility] FOR REHAB. REVIEWED DISCHARGE PACKET WITH DAUGHTER-DPOA, GAVE REPORT TO LUDWIN MCCAULEY AT [place], PATIENT TAKEN BY WHEELCHAIR TRANSPORT TO [place]
== END 2019-09-08 18:53 | DRG 177 ==
LOC: M.ERS 06:01 → M.ICU 06:54 → M.2W 06:54 → M.TBA-ER 06:54 → M.ICU 08:07 → M.2W 09-02 19:18
PROVIDERS: Emergency Medicine; Internal Medicine; Internal Medicine Nephrology; ADMIT Internal Medicine
PROC: 5A09357 Assistance with Respiratory Ventilation, Less than 24 Consecutive Hours, Continuous Positive Airway Pressure (ICD-10-PCS; principal; 2019-08-30)
PROC: 5A09357 Assistance with Respiratory Ventilation, Less than 24 Consecutive Hours, Continuous Positive Airway Pressure (ICD-10-PCS; 2019-08-31)
PROC: 5A09357 Assistance with Respiratory Ventilation, Less than 24 Consecutive Hours, Continuous Positive Airway Pressure (ICD-10-PCS; 2019-09-01)
PROC: 5A09357 Assistance with Respiratory Ventilation, Less than 24 Consecutive Hours, Continuous Positive Airway Pressure (ICD-10-PCS; 2019-09-02)
PROC: 5A09357 Assistance with Respiratory Ventilation, Less than 24 Consecutive Hours, Continuous Positive Airway Pressure (ICD-10-PCS; 2019-09-03)
PROC: 5A09357 Assistance with Respiratory Ventilation, Less than 24 Consecutive Hours, Continuous Positive Airway Pressure (ICD-10-PCS; 2019-09-04)
PROC: 5A09357 Assistance with Respiratory Ventilation, Less than 24 Consecutive Hours, Continuous Positive Airway Pressure (ICD-10-PCS; 2019-09-05)
DX: J15.6 Pneumonia due to other Gram-negative bacteria (principal); J96.01 Acute respiratory failure with hypoxia; I50.43 Acute on chronic combined systolic (congestive) and diastolic (congestive) heart failure; N39.0 Urinary tract infection, site not specified; I13.0 Hypertensive heart and chronic kidney disease with heart failure and stage 1 through stage 4 chronic kidney disease, or unspecified chronic kidney disease; N17.9 Acute kidney failure, unspecified; J98.11 Atelectasis; J44.1 Chronic obstructive pulmonary disease with (acute) exacerbation; J44.0 Chronic obstructive pulmonary disease with (acute) lower respiratory infection; G89.29 Other chronic pain; M54.9 Dorsalgia, unspecified; D50.9 Iron deficiency anemia, unspecified; E11.22 Type 2 diabetes mellitus with diabetic chronic kidney disease; N18.3 Chronic kidney disease, stage 3 (moderate); B96.20 Unspecified Escherichia coli [E. coli] as the cause of diseases classified elsewhere; E87.5 Hyperkalemia; G47.33 Obstructive sleep apnea (adult) (pediatric); I48.0 Paroxysmal atrial fibrillation; E78.5 Hyperlipidemia, unspecified; H35.30 Unspecified macular degeneration; R80.9 Proteinuria, unspecified; Z66 Do not resuscitate; F41.9 Anxiety disorder, unspecified; D63.1 Anemia in chronic kidney disease; E66.01 Morbid (severe) obesity due to excess calories; Z96.1 Presence of intraocular lens; Z86.73 Personal history of transient ischemic attack (TIA), and cerebral infarction without residual deficits; Z90.49 Acquired absence of other specified parts of digestive tract; Z98.890 Other specified postprocedural states; Z68.34 Body mass index [BMI] 34.0-34.9, adult; Z85.3 Personal history of malignant neoplasm of breast; Z79.82 Long term (current) use of aspirin; Z79.899 Other long term (current) drug therapy; Z88.0 Allergy status to penicillin; Z88.2 Allergy status to sulfonamides; Z79.01 Long term (current) use of anticoagulants; Z79.84 Long term (current) use of oral hypoglycemic drugs